=== PATIENT | male | born 1995 | race Caucasian/White ===

== ENCOUNTER 2022-01-20 14:33 | Emergency (ER) | payer MEDICAID, SELFPAY ==
[2022-01-20 15:00] VITALS: BP 134/90; PULSE 83; O2SAT 97
--- NOTE | 2022-01-20 15:18 | ED.OVERDOSE ---
HPI - Overdose General Chief Complaint: ETOH/Substance Use Stated Complaint: OD,NARCAN GIVEN BY BYSTANDER W/GOOD RESULT Time Seen by Provider: 01/20/22 14:49 Source: patient Mode of arrival: EMS Limitations: no limitations History of Present Illness complaint: accidental overdose Onset (ago): minute(s) (just prior to arrival ) Context: Accidental Overdose: wanted to get high Associated symptoms: other (hit head has abrasions to R forehead) Treatments Prior to Arrival: narcan Related Data Allergies Allergy/AdvReac Type Severity Reaction Status Date / Time No Known Allergies Allergy Unverified 12/04/19 17:05 [No Known Allergies*] Review of Systems Review of Systems: Constitutional : No Fever, No Chills, Cardiovascular : No Chest Pain, No SOB Respiratory : No Dyspnea Gastrointestinal : No abdominal pain Musculoskeletal : No Joint Swelling Skin : No rash, positive skin abrasions Neuro : No Weakness, No Numbness Psych : No SI/HI PMFSH Past Medical History Medical History (Updated 01/20/22 @ 15:30 by Guillermina Galindo DO) Polysubstance abuse Social History Social History (Updated 01/20/22 @ 15:29 by Guillermina Galindo DO) Patient Tobacco Use Status: Current everyday Tobacco user Substance Use Type: Heroin and Marijuana Physical Exam Vital Signs: Vital Signs: BMI result Body Mass Index 19.0 Appearance: Alert. Oriented X3. No acute distress. Calm and cooperative Eyes: Pupils equal, round and reactive to light. ENT: Pharynx normal. Gouges on R side of forehead Neck: Normal inspection. Neck supple. CVS: Normal heart rate and rhythm. Pulses normal. Respiratory: No respiratory distress. Breath sounds normal. Abdomen: Soft and non-tender. Skin: Skin warm and dry. Normal skin color. Normal skin turgor. Extremities: No lower extremity edema. No calf ttp Neuro: Oriented X 3. No motor deficit. No sensory deficit. Steady gait, GCS 15 MDM - Overdose MDM Narrative Medical decision making narrative: 26 yo male with OUD here with c/o overdose hit R side of head on forehead. I wanted to get a head CT and observe him but he refuses he is alert and oriented x 3 answering all questions appropriately and he is aware and wants to leave. I handed him a narcan. He is very calm and cooperative. He is aware he could have an ICH but states he is leaving and will come back if necessary. Discharge Plan Discharge Clinical Impression: Accidental heroin overdose, Head injury, Abrasion Patient Disposition: Left Against Medical Advice Instructions: Head Injury (ED), Opioid Use Disorder (ED), Abrasion (ED), Against Medical Advice (ED) Additional Instructions: return to ED for any worsening symptoms or concerns apply bacitracin to your scrapes twice a day monitor for redness, yellow drainage, fevers we asked you to stay in the ER for observation but you refused. we also wanted to get a CT scan of your head but you refused. Please come back at any time
[2022-01-20 15:19] VITALS: BMI 19.0
== END 2022-01-20 15:31 | disposition left against medical advice (07) ==
PROVIDERS: Emergency Provider Emergency Medicine
DX: S00.81XA Abrasion of other part of head, initial encounter (principal); T40.1X1A Poisoning by heroin, accidental (unintentional), initial encounter; W01.0XXA Fall on same level from slipping, tripping and stumbling without subsequent striking against object, initial encounter; Y93.9 Activity, unspecified; Y92.9 Unspecified place or not applicable; Y99.9 Unspecified external cause status
CPT/HCPCS: 99282

== ENCOUNTER 2022-04-03 00:12 | Emergency (ER) | payer MEDICAID, SELFPAY ==
--- NOTE | ~2022-04-03 | XR_ITS ---
EXAMINATION: XR CHEST CLINICAL INFORMATION: Chest pain COMPARISON: 02/07/2019 TECHNIQUE: Frontal view of the chest was obtained. FINDINGS: The lungs are well expanded. There is no focal consolidation, edema, or effusion. No pneumothorax. The cardiomediastinal silhouette is within normal limits. No acute osseous abnormality. XR/XR chest 1V IMPRESSION: Clear lungs.
[2022-04-03 00:23] VITALS: BP 137/87; BP 146/80; PULSE 87; PULSE 95; RESP 16; TEMP 36.6; O2SAT 98; O2SAT 99; BMI 22.3
--- NOTE | 2022-04-03 00:26 | ED_ITS ---
HPI - Chest Pain General Chief Complaint: Chest Pain Stated Complaint: Chest Pain Time Seen by Provider: 04/03/22 00:21 Source: patient Mode of arrival: ambulatory Limitations: no limitations History of Present Illness HPI narrative: Patient comes in the emergency room complaining of chest pain that has been present for approximately an hour. Patient admits using cocaine earlier today. Patient denies URI or UTI symptoms. Related Data Allergies Allergy/AdvReac Type Severity Reaction Status Date / Time No Known Allergies Allergy Unverified 12/04/19 17:05 [No Known Allergies*] Review of Systems Review of Systems: Constitutional : No Weight loss, No Fever, No Chills, No Night Sweats, No Fatigue, No Malaise ENT/Mouth : No Hearing loss, No Ear Pain, No Nasal Congestion, No Sinus Pain, No Hoarseness, No sore throat, No Rhinorrhea, No Swallowing Difficulty Eyes: No Eye Pain, No Swelling, No Redness, No Foreign Body, No Discharge, No Vision Changes Cardiovascular : Biting of sharp Chest Pain, No SOB, No Dyspnea on Exertion, No Orthopnea, No Edema, No Palpitations Respiratory : No Cough, No Sputum, No Wheezing, No Smoke Exposure, No Dyspnea Gastrointestinal : No Nausea, No Vomiting, No Diarrhea, No Constipation, No abdominal Pain, No Hematochezia, No Melena Genitourinary : no irregular bleeding, No Dysuria, No Urinary Frequency, No Hematuria, No Urinary Incontinence, No Urgency, No Flank Pain, No Urinary Flow Changes, No Hesitancy Musculoskeletal : No joint pain, No Myalgias, No Joint Swelling Skin : No Skin Lesions, No rash Neuro : No Weakness, No Numbness, No Paresthesias, No Loss of Consciousness, No Dizziness, No Headache Psych : No Anxiety/Panic, No Depression, No SI/HI/AH/VH, No Social Issues, Heme/Lymph: No Bruising, No Bleeding,No Lymphadenopathy Endocrine : No Polyuria, No Polydipsia, No Temperature Intolerance [facility] Past Medical History Medical History Polysubstance abuse Social History Social History (Updated 01/20/22 @ 15:29 by Guillermina Galindo DO) Alcohol intake: current Patient Tobacco Use Status: Current everyday Tobacco user Smoked in Last 30 Days: Yes Use of substances other than those prescribed or required for medical reasons: Yes Substance Use Type: Crack/Cocaine, Heroin, IV Drugs and Marijuana Substance Use Frequency: Chronic Longstanding Last Used Substance: Hours (ago) Any prior treatment program specific to substance use: No Advance Directives: No Advance Directives Information Provided: No Physical Exam Vital Signs: Vital Signs: Last Vital Signs Temp 97.9 F 04/03/22 00:23 Pulse 104 H 04/03/22 01:15 Resp 17 04/03/22 01:15 BP 143/92 H 04/03/22 01:15 Pulse Ox 92 04/03/22 01:15 O2 Del Method 04/03/22 01:15 BMI result Body Mass Index 22.3 Const: Other: Appearance: Alert. Oriented X3. No acute distress. Eyes: Pupils equal, round and reactive to light. ENT: Pharynx normal. Neck: Normal inspection. Neck supple. No lymph nodes noted. No crepitus CVS: Normal heart rate and rhythm. Pulses normal. Normal S1 and S2 Respiratory: No respiratory distress. Breath sounds normal. No Wheezing. No rales Abdomen: Soft and nontender. No rigidity. No distention. Skin: Skin warm and dry. Normal skin color. Normal skin turgor. Extremities: No lower extremity edema. No Lacerations. No Rash Neuro: Oriented X 3. No motor deficit. No sensory deficit. Moving all extremities. No slurred speech. CN 2 through 12 grossly intact Psych: calm, cooperative, normal affect Course Course Course Narrative: -patient complaining of chest pain, likely secondary to cocaine use. Use cocaine approximately 6-7 hours ago -patient given 1 dose of p.o. aspirin -of patient's labs pending. -EKG my interpretation: Sinus rhythm, heart rate 95, no ST segment depression or elevation, no T-wave inversion, QTC 429 -patient feeling much better, tested positive for COVID-19. Patient states that he has no URI symptoms at all -patient states that he feels very hungry and thirsty, requesting a meal prior to discharge. -patient declined going to a job coach/job developer regarding addiction. Patient states that he will section himself in couple of days Medications Administered Discontinued Medications Generic Name Dose Route Start Last Admin Trade Name Leonel PRN Reason Stop Dose Admin Aspirin 325 mg 04/03/22 00:25 04/03/22 00:43 Aspirin Enteric Coated 325 Mg Tablet.Dr COPPOLA 04/03/22 00:26 325 mg ONCE ONE Administration Medical Decision Making Differential Diagnosis Differential Diagnoses: The differential diagnosis associated with the presentation includes (Coronary vasospasms secondary to cocaine, ACS, cost ochondritis, pneumonia) Lab Data MDM Lab Attestation statement: I reviewed the patient's lab results. 04/03/22 01:07 04/03/22 01:07 Labs: Lab Results 04/03/22 04/03/22 04/03/22 Range/Units 00:50 01:07 01:07 WBC 9.9 (4.8-10.8) X10*3/uL RBC 4.81 (4.60-5.80) X10*6/uL Hgb 13.5 L (14.0-18.0) g/dl Hct 41.5 L (42.0-52.0) % MCV 86.3 (80.0-98.0) fL MCH 28.1 (27.0-33.0) pg MCHC 32.5 (31.0-36.0) g/dl RDW 15.7 (11.0-16.0) % Plt Count 235 (160-400) X10*3/uL MPV 10.4 (9.4-12.4) fL Immature Gran % (Auto) 0.3 (0.0-0.4) % Neut % (Auto) 76.2 H (45-73) % Lymph % (Auto) 18.3 L (20-40) % [place] % (Auto) 4.4 (2-11) % Eos % (Auto) 0.5 (0-4) % Baso % (Auto) 0.3 (0-2) % Lymph # (Auto) 1.8 (1.2-4.9) X10*3/uL [place] # (Auto) 0.4 (0.1-1.2) X10*3/uL Eos # (Auto) 0.1 (0.0-0.4) X10*3/uL Baso # (Auto) 0.0 (0.0-0.2) X10*3/uL Abs Immat Gran (auto) 0.03 (0.00-0.03) X10*3/uL Absolute Neuts (auto) 7.6 (2.0-8.3) x10*3/uL Absolute Nucleated RBC 0.000 (0.0-0.012) X10*3/uL Nucleated RBC % (auto) 0.0 (0.0-0.2) /100WBC PT 12.2 (10.0-13.1) SEC INR 1.1 (0.9-1.1) Sodium (135-145) mmol/L Potassium (3.3-5.1) mmol/L Chloride (96-108) mmol/L Carbon Dioxide (22-29) mmol/L Anion Gap (12-20) BUN (9-16) mg/dL Creatinine (0.5-1.4) mg/dL Estim Creat Clear Calc Estimated GFR Random Glucose (60-115) mg/dL Calcium (8.4-10.2) mg/dL Total Bilirubin (0.0-1.0) mg/dL Direct Bilirubin (0.0-0.5) mg/dL AST (5-37) U/L ALT (0-40) U/L Alkaline Phosphatase (39-117) U/L Troponin I High Sens (<3.5-35.0) ng/L Total Protein (6.5-8.0) g/dL Albumin (3.5-5.0) g/dL COVID-19 ([facility]) Positive A (Negative) COVID-19 Clin Com See Note 04/03/22 04/03/22 Range/Units 01:07 01:07 WBC (4.8-10.8) X10*3/uL RBC (4.60-5.80) X10*6/uL Hgb (14.0-18.0) g/dl Hct (42.0-52.0) % MCV (80.0-98.0) fL MCH (27.0-33.0) pg MCHC (31.0-36.0) g/dl RDW (11.0-16.0) % Plt Count (160-400) X10*3/uL MPV (9.4-12.4) fL Immature Gran % (Auto) (0.0-0.4) % Neut % (Auto) (45-73) % Lymph % (Auto) (20-40) % [place] % (Auto) (2-11) % Eos % (Auto) (0-4) % Baso % (Auto) (0-2) % Lymph # (Auto) (1.2-4.9) X10*3/uL [place] # (Auto) (0.1-1.2) X10*3/uL Eos # (Auto) (0.0-0.4) X10*3/uL Baso # (Auto) (0.0-0.2) X10*3/uL Abs Immat Gran (auto) (0.00-0.03) X10*3/uL Absolute Neuts (auto) (2.0-8.3) x10*3/uL Absolute Nucleated RBC (0.0-0.012) X10*3/uL Nucleated RBC % (auto) (0.0-0.2) /100WBC PT (10.0-13.1) SEC INR (0.9-1.1) Sodium 140 (135-145) mmol/L Potassium 3.7 (3.3-5.1) mmol/L Chloride 104 (96-108) mmol/L Carbon Dioxide 26 (22-29) mmol/L Anion Gap 14 (12-20) BUN 12 (9-16) mg/dL Creatinine 0.80 (0.5-1.4) mg/dL Estim Creat Clear Calc 115.6 Estimated GFR > 60 Random Glucose 79 (60-115) mg/dL Calcium 9.3 (8.4-10.2) mg/dL Total Bilirubin 1.0 (0.0-1.0) mg/dL Direct Bilirubin 0.3 (0.0-0.5) mg/dL AST 42 H (5-37) U/L ALT 44 H (0-40) U/L Alkaline Phosphatase 68 (39-117) U/L Troponin I High Sens < 3.5 (<3.5-35.0) ng/L Total Protein 7.2 (6.5-8.0) g/dL Albumin 4.4 (3.5-5.0) g/dL COVID-19 ([facility]) (Negative) COVID-19 Clin Com Independent Interpretation I performed an independent interpretation of an: Plain X-Ray (X-rays: My interpretation, no acute findings, no consolidation) Radiology Impression Discussion of test interpretation with radiology: I have reviewed the radiologist's reading. Radiologist Impression: FINDINGS: The lungs are well expanded. There is no focal consolidation, edema, or effusion. No pneumothorax. The cardiomediastinal silhouette is within normal limits. No acute osseous abnormality. XR/XR chest 1V IMPRESSION: Clear lungs. Prescription Management I considered prescription management with: Other (Consider prescribing Paxlovid, however, patient has no URI symptoms. Discussed with the patient and he agrees that if need be he can take [id number] medications but he does not think he will needed.) Discharge Plan Discharge Clinical Impression: Atypical chest pain Patient Disposition: Home, Self-Care Instructions: Chest Pain (DC) Additional Instructions: Please follow-up with your primary care physician tomorrow. If you have any worsening or new symptoms, please return to the emergency room or call 911
[2022-04-03] MEDS: Aspirin Enteric Coated 325 MG TABLET.DR PO (00:43)
--- NOTE | 2022-04-03 00:54 | MHC.EDTECH ---
Unable to Obtain Labs 2 attemps made
--- NOTE | 2022-04-03 00:58 | PC.NURSE ---
pt is difficult stick, this RN, Faustino PCT and Anam PCT attempted lab draw. Yoanna DOBSON in room at this time
[2022-04-03 01:15] VITALS: BP 143/92; PULSE 104; RESP 17; O2SAT 92
[2022-04-03 01:15] LABS: MANUAL DIFF FLAG NO
[2022-04-03 01:16] LABS: Basophils Percent Auto 0.3 % (0-2); Eosinophils Absolute Auto 0.1 X10*3/uL (0.0-0.4); Eosinophils Percent Auto 0.5 % (0-4); Hematocrit 41.5 % (42.0-52.0); Hemoglobin 13.5 g/dl (14.0-18.0); Imm Gran Abs Auto 0.03 X10*3/uL (0.00-0.03); Imm Gran Pct Auto 0.3 % (0.0-0.4); Lymphocytes Absolute Auto 1.8 X10*3/uL (1.2-4.9); Lymphocytes Percent Auto 18.3 % (20-40); Mean Corpuscular HGB Conc 32.5 g/dl (31.0-36.0); Mean Corpuscular Hemoglobin 28.1 pg (27.0-33.0); Mean Corpuscular Volume 86.3 fL (80.0-98.0); Mean Platelet Volume 10.4 fL (9.4-12.4); Monocytes Absolute Auto 0.4 X10*3/uL (0.1-1.2); Monocytes Percent Auto 4.4 % (2-11); Neutrophils Absolute Auto 7.6 x10*3/uL (2.0-8.3); Neutrophils Percent Auto 76.2 % (45-73); Platelet Count 235 X10*3/uL (160-400); Red Blood Count 4.81 X10*6/uL (4.60-5.80); Red Cell Distribution Width 15.7 % (11.0-16.0); White Blood Count 9.9 X10*3/uL (4.8-10.8)
[2022-04-03 01:21] LABS: COVID-19 Test Positive (Negative); IDNOW Serial# BCCEAD1C
[2022-04-03 01:26] LABS: INTERNATIONAL NORM RATIO 1.1 (0.9-1.1); Prothrombin Time 12.2 SEC (10.0-13.1)
[2022-04-03 01:35] LABS: Alanine Aminotransferase 44 U/L (0-40); Albumin Level 4.4 g/dL (3.5-5.0); Alkaline Phosphatase 68 U/L (39-117); Anion Gap 14 (12-20); Aspartate Amino Transferase 42 U/L (5-37); Bilirubin Direct 0.3 mg/dL (0.0-0.5); Blood Urea Nitrogen 12 mg/dL (9-16); Calcium 9.3 mg/dL (8.4-10.2); Carbon Dioxide 26 mmol/L (22-29); Chloride 104 mmol/L (96-108); Creatinine Clr Calc Pharmacy 115.6; Estimated Glomerular Filt Rate > 60; Glucose Random 79 mg/dL (60-115); Potassium 3.7 mmol/L (3.3-5.1); Sodium 140 mmol/L (135-145); Total Protein 7.2 g/dL (6.5-8.0)
[2022-04-03 01:44] LABS: Troponin-I High Sensitivity < 3.5 ng/L (<3.5-35.0)
--- NOTE | 2022-04-03 08:17 | ECG_ITS ---
Test Reason : CHEST PAIN Blood Pressure : / mmHG Vent. Rate : 095 BPM Atrial Rate : 095 BPM P-R Int : 124 ms QRS Dur : 088 ms QT Int : 342 ms P-R-T Axes : 074 067 043 degrees QTc Int : 429 ms Normal sinus rhythm Normal ECG When compared with ECG of 07-FEB-2019 18:12, No significant change was found Referred By: Cyndi Vaz Electronically Signed By:RADHA JUÁREZ MD
== END 2022-04-03 02:05 | disposition home or self-care (01) ==
PROVIDERS: Emergency Provider Emergency Medicine
DX: U07.1 COVID-19 (principal); R07.89 Other chest pain; F19.10 Other psychoactive substance abuse, uncomplicated; F17.200 Nicotine dependence, unspecified, uncomplicated
CPT/HCPCS: 71045; 80048; 80076; 84484; 85025; 85610; 87635; 93005; 99283

== ENCOUNTER 2022-04-03 22:31 | Emergency (ER) | payer MEDICAID, SELFPAY ==
[2022-04-03 22:49] VITALS: BP 145/85; PULSE 105; PULSE 90; RESP 16; O2SAT 98; BMI 22.3
--- NOTE | 2022-04-03 23:00 | ED.OVERDOSE ---
HPI - Overdose General Chief Complaint: Overdose Stated Complaint: OD Time Seen by Provider: 04/03/22 22:53 Source: patient and EMS Mode of arrival: EMS Limitations: no limitations History of Present Illness HPI Narrative: Patient comes to the emergency room via ambulance. Patient was found unresponsive, given Narcan 8 mg intranasal and patient will go. Patient states that he recently got out of present, used heroin and he accidentally overdose. Patient states he is not suicidal homicidal. Patient has no other complaints Related Data Allergies Allergy/AdvReac Type Severity Reaction Status Date / Time No Known Allergies Allergy Unverified 12/04/19 17:05 [No Known Allergies*] Review of Systems Review of Systems: Constitutional : No Weight loss, No Fever, No Chills, No Night Sweats, No Fatigue, No Malaise ENT/Mouth : No Hearing loss, No Ear Pain, No Nasal Congestion, No Sinus Pain, No Hoarseness, No sore throat, No Rhinorrhea, No Swallowing Difficulty Eyes: No Eye Pain, No Swelling, No Redness, No Foreign Body, No Discharge, No Vision Changes Cardiovascular : No Chest Pain, No SOB, No Dyspnea on Exertion, No Orthopnea, No Edema, No Palpitations Respiratory : No Cough, No Sputum, No Wheezing, No Smoke Exposure, No Dyspnea Gastrointestinal : No Nausea, No Vomiting, No Diarrhea, No Constipation, No abdominal Pain, No Hematochezia, No Melena Genitourinary : no irregular bleeding, No Dysuria, No Urinary Frequency, No Hematuria, No Urinary Incontinence, No Urgency, No Flank Pain, No Urinary Flow Changes, No Hesitancy Musculoskeletal : No joint pain, No Myalgias, No Joint Swelling Skin : No Skin Lesions, No rash Neuro : No Weakness, No Numbness, No Paresthesias, No Loss of Consciousness, No Dizziness, No Headache Psych : No Anxiety/Panic, No Depression, No SI/HI/AH/VH, No Social Issues, Heme/Lymph: No Bruising, No Bleeding,No Lymphadenopathy Endocrine : No Polyuria, No Polydipsia, No Temperature Intolerance PMF Past Medical History Medical History Polysubstance abuse Social History Social History (Updated 01/20/22 @ 15:29 by Guillermina Galindo DO) Alcohol intake: current Patient Tobacco Use Status: Current everyday Tobacco user Substance Use Type: Crack/Cocaine, Heroin, IV Drugs and Marijuana Advance Directives: No Physical Exam Vital Signs: Vital Signs: Last Vital Signs Temp 98.4 F 04/03/22 23:55 Pulse 92 04/03/22 23:55 Resp 14 04/03/22 23:55 BP 122/81 04/03/22 23:55 Pulse Ox 98 04/03/22 23:55 O2 Del Method 04/03/22 23:55 BMI result Body Mass Index 22.3 Const: Other: Appearance: Alert. Oriented X3. No acute distress. Eyes: Pupils equal, round and reactive to light. ENT: Pharynx normal. Neck: Normal inspection. Neck supple. No lymph nodes noted. No crepitus CVS: Normal heart rate and rhythm. Pulses normal. Normal S1 and S2 Respiratory: No respiratory distress. Breath sounds normal. No Wheezing. No rales Abdomen: Soft and nontender. No rigidity. No distention. Skin: Skin warm and dry. Normal skin color. Normal skin turgor. Extremities: No lower extremity edema. No Lacerations. No Rash Neuro: Oriented X 3. No motor deficit. No sensory deficit. Moving all extremities. No slurred speech. CN 2 through 12 grossly intact Psych: calm, cooperative, normal affect Course Course Course Narrative: -accidental overdose -awake, alert and oriented x4, normal respiratory rate and oxygen saturation -patient declined care team/sude eval -patient on observation, in couple of hours patient may be discharged. -patient will be discharged with home Narcan Medical Decision Making Differential Diagnosis Differential Diagnoses: The differential diagnosis associated with the presentation includes (Accidental overdose) Discharge Plan Discharge Clinical Impression: Drug overdose Patient Disposition: Home, Self-Care Instructions: Adult Overdose (ED) Additional Instructions: Please follow-up with your primary care physician tomorrow. If you have any worsening or new symptoms, please return to the emergency room or call 911
--- NOTE | 2022-04-03 23:12 | PC.NURSE ---
patient brought into bed 1 because he states he is covid positive. pt changed over by PCT and security, belongings secured. no apparent distress, respirations even and unlabored. will continue to monitor
[2022-04-03 23:55] VITALS: BP 122/81; PULSE 92; RESP 14; TEMP 36.9; O2SAT 98
== END 2022-04-04 01:44 | disposition home or self-care (01) ==
PROVIDERS: Emergency Provider Emergency Medicine
DX: R40.4 Transient alteration of awareness (principal); T40.1X1A Poisoning by heroin, accidental (unintentional), initial encounter; Y92.9 Unspecified place or not applicable
CPT/HCPCS: 99283

== ENCOUNTER 2022-04-08 18:28 | Emergency (ER) | payer MEDICAID, SELFPAY ==
[2022-04-08 18:36] VITALS: BP 102/50; BP 141/98; PULSE 88; PULSE 92; RESP 18; TEMP 37.1; O2SAT 100; O2SAT 95; BMI 22.3
--- NOTE | 2022-04-08 18:45 | ED.OVERDOSE ---
HPI - Overdose General Chief Complaint: Overdose Stated Complaint: OVERDOSE Time Seen by Provider: 04/08/22 18:44 Source: patient Mode of arrival: EMS Limitations: no limitations History of Present Illness HPI Narrative: Patient history of opiate abuse used to be on Suboxone not using it but using heroin last time was a month ago today he said he use half bag of heroin IV was found obtunded 8 mg of Narcan given by a bystander when EMS reached patient was awake alert patient was COVID positive on 04/03 feeling better at this time Related Data Allergies Allergy/AdvReac Type Severity Reaction Status Date / Time No Known Allergies Allergy Unverified 12/04/19 17:05 [No Known Allergies*] Review of Systems Review of Systems: Yes all other systems are reviewed and are negative PMFSH Past Medical History Medical History Polysubstance abuse Social History Social History Alcohol intake: current Patient Tobacco Use Status: Current everyday Tobacco user Smoked in Last 30 Days: Yes Use of substances other than those prescribed or required for medical reasons: Yes Substance Use Type: Opiates Advance Directives: No Advance Directives Information Provided: No Physical Exam Vital Signs: Vital Signs: Last Vital Signs Temp 98.8 F 04/08/22 18:36 Pulse 88 04/08/22 20:14 Resp 12 04/08/22 20:14 BP 116/64 04/08/22 20:14 Pulse Ox 97 04/08/22 20:14 O2 Del Method 04/08/22 20:14 BMI result Body Mass Index 22.3 Appearance: Alert. Oriented X3. No acute distress. Eyes: PERRLA, No Nystagmus ENT: Pharynx normal. Oral Mucosa moist Neck: Normal inspection. Neck supple. CVS: Normal heart rate and rhythm. Pulses normal. Respiratory: No respiratory distress. Equal air entry bilateral, no wheezing/rales/rhonchi Abdomen: Soft and nontender. Bowel sounds are present, no mass palpable, no CVA tenderness Skin: Skin warm and dry. Normal skin color. Normal skin turgor. Extremities: No lower extremity edema. No calf tenderness IVDA track skelton Neuro: Oriented X 3. No motor deficit. No sensory deficit.No cerebellar signs , cranial nerves II-XII intact Medical Decision Making Medical Decision Making MDM Narrative: Patient alert and awake ambulatory and steady gait saturating 100% room air discharge patient home Discharge Plan Discharge Clinical Impression: Accidental opiate poisoning Patient Disposition: Home, Self-Care Instructions: Opioid Use Disorder (ED) Additional Instructions: Stop using opiates and follow detox Interventions: [place]-Suicide Risk Severity Scale Last Done: 04/08/22 18:42
--- NOTE | 2022-04-08 19:39 | MHC.RECOVSUP ---
? Reason for consult:Recovery Consult o Current location:[facility]? o Identified substance use concern:Heroine ? - Overdose o Referral to [facility] o Follow up tomorrow ? ? Additional information:?Checked in with patient, he was resting at this time. I will let the team know to follow up in the morning if patient is still here. Possible [facility] referral.
[2022-04-08 20:14] VITALS: BP 116/64; PULSE 88; RESP 12; O2SAT 97
--- NOTE | 2022-04-08 20:15 | PC.NURSE ---
Assumed care for pt. Pt sleeping at the bedside in no apparent distress. Breaths are even and unlabored with equal chest rises. NSR on monitor with HR 88. Will continue to monitor.
[2022-04-08] MEDS: Naloxone HCl Nasal TAKE HOME 4 MG SPRAY NOSTRILALT (21:18)
--- NOTE | 2022-04-08 21:23 | PC.NURSE ---
Narcan provided to pt to take home. Discharge instructions reviewed with pt. Pt verbalizes understanding. Req food and liquids.
== END 2022-04-08 21:24 | disposition home or self-care (01) ==
PROVIDERS: Emergency Provider Internal Medicine
DX: R40.20 Unspecified coma (principal); T40.1X1A Poisoning by heroin, accidental (unintentional), initial encounter; F19.10 Other psychoactive substance abuse, uncomplicated; Y92.9 Unspecified place or not applicable; F17.200 Nicotine dependence, unspecified, uncomplicated
CPT/HCPCS: 99283; 99285

== ENCOUNTER 2022-05-26 04:40 | Emergency (ER) | payer MEDICAID, SELFPAY ==
[2022-05-26 05:00] VITALS: BP 132/94; BP 151/101; PULSE 105; PULSE 99; RESP 18; TEMP 36.9; O2SAT 100; O2SAT 99; BMI 15.7
--- NOTE | 2022-05-26 05:25 | ED_ITS ---
HPI - Overdose General Chief Complaint: Overdose Stated Complaint: OD Time Seen by Provider: 05/26/22 05:24 Source: patient and EMS Mode of arrival: EMS Limitations: other History of Present Illness HPI Narrative: Patient comes to the emergency room via EMS. Patient was found behind an apartment complex curled up in position and unresponsive. Bystanders gave the patient 60 mg of intranasal Narcan. Police department arrived, patient was reawakened vomiting. Patient states that he accidentally overdose with heroin. Patient denies suicidal or homicidal ideation Related Data Allergies Allergy/AdvReac Type Severity Reaction Status Date / Time No Known Allergies Allergy Unverified 12/04/19 17:05 [No Known Allergies*] Review of Systems Review of Systems: Constitutional : No Weight loss, No Fever, No Chills, No Night Sweats, No Fatigue, No Malaise ENT/Mouth : No Hearing loss, No Ear Pain, No Nasal Congestion, No Sinus Pain, No Hoarseness, No sore throat, No Rhinorrhea, No Swallowing Difficulty Eyes: No Eye Pain, No Swelling, No Redness, No Foreign Body, No Discharge, No Vision Changes Cardiovascular : No Chest Pain, No SOB, No Dyspnea on Exertion, No Orthopnea, No Edema, No Palpitations Respiratory : No Cough, No Sputum, No Wheezing, No Smoke Exposure, No Dyspnea Gastrointestinal : Complaining of nausea and vomiting, No Diarrhea, No Constipation, No abdominal Pain, No Hematochezia, No Melena Genitourinary : no irregular bleeding, No Dysuria, No Urinary Frequency, No Hematuria, No Urinary Incontinence, No Urgency, No Flank Pain, No Urinary Flow Changes, No Hesitancy Musculoskeletal : No joint pain, No Myalgias, No Joint Swelling Skin : No Skin Lesions, No rash Neuro : No Weakness, No Numbness, No Paresthesias, No Loss of Consciousness, No Dizziness, No Headache Psych : No Anxiety/Panic, No Depression, No SI/HI/AH/VH, No Social Issues, Heme/Lymph: No Bruising, No Bleeding,No Lymphadenopathy Endocrine : No Polyuria, No Polydipsia, No Temperature Intolerance [facility] Past Medical History Medical History Polysubstance abuse Social History Social History Alcohol intake: current Patient Tobacco Use Status: Current everyday Tobacco user Substance Use Type: Opiates Physical Exam Vital Signs: Vital Signs: Last Vital Signs Temp 98.4 F 05/26/22 05:00 Pulse 99 05/26/22 05:00 Resp 18 05/26/22 05:00 BP 132/94 H 05/26/22 05:00 Pulse Ox 99 05/26/22 05:00 O2 Del Method 05/26/22 05:00 BMI result Body Mass Index 15.7 Const: Other: Appearance: Alert. Oriented X3. Actively vomiting Eyes: Pupils equal, round and reactive to light. ENT: Pharynx normal. Neck: Normal inspection. Neck supple. No lymph nodes noted. No crepitus CVS: Normal heart rate and rhythm. Pulses normal. Normal S1 and S2 Respiratory: No respiratory distress. Breath sounds normal. No Wheezing. No rales Abdomen: Soft and nontender. No rigidity. No distention. Skin: Skin warm and dry. Normal skin color. Normal skin turgor. Extremities: No lower extremity edema. No Lacerations. No Rash Neuro: Oriented X 3. No motor deficit. No sensory deficit. Moving all extremities. No slurred speech. CN 2 through 12 grossly intact Psych: calm, cooperative Course Course Course Narrative: -patient actively vomiting, awake, alert and oriented x3,, cooperative -patient's oxygen saturation 100% on room air -metabolized to freedom -care/sude consult pending -patient will be provided with home Narcan Discharge Plan Discharge Clinical Impression: Drug overdose Patient Disposition: Still a Patient
[2022-05-26] MEDS: Naloxone HCl Nasal TAKE HOME 4 MG SPRAY NOSTRILALT (06:29)
--- NOTE | 2022-05-26 06:29 | PC.NURSE ---
Pt given med. Med left at bed side to take home.
--- NOTE | 2022-05-26 07:08 | PC.NURSE ---
Resumed care of this patient from Frandy CARBAJAL, Patient resting comfortably in bed at this time, safety measures in place.
[2022-05-26 07:27] VITALS: BP 110/72; PULSE 94; RESP 16; O2SAT 96
--- NOTE | 2022-05-26 09:17 | HO.SUDE ---
Met with pt in ED11 to discuss substance use. Pt laying in bed, asleep, wakes to voice. Pt reports using varying amounts of heroin, between 5-20 bags daily, IV. Pt also reports cocaine use, IV and INH, unknown amount. Pt has recently been in prison, reports release a couple months ago. Had been in x 1 year and was on Suboxone. Pt reports after release he had a recurrence and did not continue outpatient tx. Per [facility], pt had one script filled in Nov 2021 for a 10 day supply. Pt reports 2-3 ATS admissions. Reports a total of 20 overdoses. Pt reports this overdose probably occurred due to using from a different supplier. Pt is interested in ATS. Kateryna kuhn, RN aware.
[2022-05-26 09:23] VITALS: BP 99/57; PULSE 85; RESP 18; O2SAT 96
[2022-05-26 10:01] VITALS: BP 111/71
--- NOTE | 2022-05-26 11:07 | MHC.RECOVRN ---
Pt accepted to [facility]. Will be transported via [place]. RN aware.
== END 2022-05-26 11:48 | disposition other institution (70) ==
PROVIDERS: Emergency Provider Emergency Medicine
DX: T40.1X1A Poisoning by heroin, accidental (unintentional), initial encounter (principal); Y92.89 Other specified places as the place of occurrence of the external cause
CPT/HCPCS: 99284; 99285

== ENCOUNTER 2023-05-26 07:56 | Emergency (ER) | payer SELFPAY ==
--- NOTE | 2023-05-26 08:09 | MHC.EDTECH ---
2 BAGS OF BELONGINGS TO DECON, 1 KNIFE TO SECURITY PER SECURITY OFFICERS DENNIS AND @ THIS TIME
[2023-05-26 08:10] VITALS: BP 138/100; BP 162/95; PULSE 86; PULSE 91; RESP 15; TEMP 36.7; O2SAT 97; O2SAT 99; BMI 25.3
--- NOTE | 2023-05-26 08:11 | ED_ITS ---
HPI - Overdose General Chief Complaint: Overdose Stated Complaint: HEROIN OD,BYSTANDER NARCAN GIVEN W/GOOD RESULT Time Seen by Provider: 05/26/23 08:07 Source: patient and EMS Mode of arrival: EMS Limitations: no limitations History of Present Illness HPI Narrative: Patient is a 27-year-old male who presents emergency department via EMS for evaluation after an unintentional overdose. Patient was found in a [facility] bathroom, bystanders administered 8 mg of intranasal Narcan. He admits to using half a bag of heroin. He states that he has not used in a while, believes this is likely why this amount resulted in his overdose. He is adamant that this was not intentional. He does admit to drinking alcohol last night. When asked he declines any interest in detox, or SUDE evaluation. He has no physical c omplaints. He denies any SI/HI. Related Data Allergies Allergy/AdvReac Type Severity Reaction Status Date / Time No Known Allergies Allergy Verified 05/26/23 08:24 [No Known Allergies*] Review of Systems Review of Systems: Yes all other systems are reviewed and are negative [facility] Past Medical History Attestation statement: The following information was validated with the patient. Source: old records reviewed Medical History Polysubstance abuse Social History Social History Alcohol intake: current Patient Tobacco Use Status: Current everyday Tobacco user Substance Use Type: Crack/Cocaine, Heroin, IV Drugs, Marijuana and Opiates Advance Directives: No Physical Exam Vital Signs: Vital Signs: Last Vital Signs Temp 98.0 F 05/26/23 08:10 Pulse 91 05/26/23 08:10 Resp 15 05/26/23 08:10 BP 138/100 H 05/26/23 08:10 Pulse Ox 99 05/26/23 08:10 O2 Del Method Room Air 05/26/23 08:10 BMI result Body Mass Index 25.3 Appearance: Alert.?Oriented to person, place and time. No acute distress.?Normal affect. Eyes: Pupils equal, round and reactive to light.? ENT: Pharynx normal.?? Neck: Normal inspection.? Neck supple.?? CVS: Heart sounds normal. Normal heart rate and rhythm.? Pulses normal.?? Respiratory: No respiratory distress.? Lung sounds clear to auscultation bilaterally?? Abdomen: Soft and non-tender. Normoactive bowel sounds. Skin: Skin warm and dry.? Normal skin color.? Extremities: No lower extremity edema.? Neuro: Moves all extremities spontaneously. Sensation intact bilaterally. CN II- XII intact. No focal neuro deficits. Ambulates with normal steady gait. Course Reevaluation(s) Reevaluation #1: He was monitored in the emergency department for the past 3 hours. Remains alert and oriented. No respiratory distress. Continues to decline interest in detox or SUDE evaluation. Stable for discharge. Provided with take-home Narcan kit and instructed on usage Time: 10:50 Medical Decision Making Medical Decision Making MDM Narrative: Patient is a 27-year-old male with past medical history of substance use disorder who presents emergency department via EMS for evaluation after an unintentional overdose as per HPI. At the time my examination he appears overall well, he is speaking clear full sentences, no respiratory distress. He is requesting something to eat, and this request was met. He was offered a SUDE evaluation and he declines. He declines any interest in detox. 8 mg of intranasal Narcan was administered prior to arrival, therefore will remain in the emergency department under physician observation to ensure no relapse of overdose state. He will be discharged home with take-home Narcan kit. Differential Diagnosis Differential Diagnoses: The differential diagnosis associated with the presentation includes (Substance use disorder, intentional overdose, unintentional overdose) Admission/Observation Consideration of admission/observation: Escalation of care including admission/observation considered (See narrative above) Independent Historian Clinical information obtained from an independent historian. History obtained from or confirmed by: EMS Social Determinants Patient?s care significantly limited by Social Determinants of Health including: Other Social Determinant of Health (Substance use disorder) Discharge Plan Discharge Clinical Impression: Opiate overdose Qualifiers: Encounter type: initial encounter Injury intent: accidental or unintentional Qualified Code(s): T40.601A - Poisoning by unspecified narcotics, accidental (unintentional), initial encounter Patient Disposition: Home, Self-Care Instructions: Naloxone (Into the nose), Opioid Safety (ED), Opioid Use Disorder (ED) Referrals: Physician,None [Primary Care Provider] -
--- NOTE | 2023-05-26 11:26 | PC.NURSE ---
pt a+o x3, vss, he denies pain. 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 Pt cleared for discharge, discharge instructions reviewed with pt. No complaints on discharge.
--- NOTE | 2023-05-26 11:36 | MHC.RECOVRN ---
ACS unable to complete SUDE, as per MD note, pt declined.
== END 2023-05-26 11:22 | disposition home or self-care (01) ==
PROVIDERS: Emergency Provider Student in an Organized Health Care Education/Training Program
DX: T40.601A Poisoning by unspecified narcotics, accidental (unintentional), initial encounter (principal); Y92.9 Unspecified place or not applicable
CPT/HCPCS: 99283; 99285

== ENCOUNTER 2023-06-07 00:48 | Emergency (ER) | payer OTHER, SELFPAY ==
--- NOTE | 2023-06-07 | ECG_ITS ---
Test Reason : OVERDOSE Blood Pressure : / mmHG Vent. Rate : 098 BPM Atrial Rate : 098 BPM P-R Int : 128 ms QRS Dur : 090 ms QT Int : 338 ms P-R-T Axes : 073 070 047 degrees QTc Int : 431 ms Normal sinus rhythm Normal ECG When compared with ECG of 03-APR-2022 00:16, No significant change was found Referred By: Generic ED Physician Electronically Signed By:SHANTA OWENS
[2023-06-07 00:56] VITALS: BP 140/90; PULSE 115; O2SAT 100; BMI 26.6
[2023-06-07 01:05] VITALS: BP 125/91; PULSE 119; RESP 18; TEMP 36.7; O2SAT 98
--- NOTE | 2023-06-07 01:18 | ED.OVERDOSE ---
HPI - Overdose General Chief Complaint: Overdose Stated Complaint: OVERDOSE Time Seen by Provider: 06/07/23 01:12 History of Present Illness HPI Narrative: Patient is a 27-year-old male with a history of polysubstance abuse. Elected to inject himself with a bag of heroin at approximately midnight. Was found to be unresponsive. Nasal Narcan was given. Patient was then sent to the emergency department for further evaluation. Patient claims that he did it for recreational reasons. In addition patient also want to hurt himself. He does want to go to detox at this time. He has no fever no chills. He is hungry. Related Data Allergies Allergy/AdvReac Type Severity Reaction Status Date / Time No Known Allergies Allergy Verified 05/26/23 08:24 [No Known Allergies*] Review of Systems Review of Systems: Positive heroin use Yes all other systems are reviewed and are negative [facility] Past Medical History Attestation statement: The following information was validated with the patient. Medical History Polysubstance abuse Social History Social History Alcohol intake: current Alcohol intake frequency: does not drink Patient Tobacco Use Status: Current everyday Tobacco user Smoked in Last 30 Days: Yes Use of substances other than those prescribed or required for medical reasons: Yes Substance Use Type: Heroin Physical Exam Vital Signs: Vital Signs: Last Vital Signs Temp 98.0 F 06/07/23 01:05 Pulse 119 H 06/07/23 01:05 Resp 18 06/07/23 01:05 BP 125/91 H 06/07/23 01:05 Pulse Ox 98 06/07/23 01:05 O2 Del Method Room Air 06/07/23 01:05 BMI result Body Mass Index 26.6 Appearance: Alert. Oriented X3. No acute distress. Eyes: Pupils equal, round and reactive to light. ENT: Pharynx normal. Neck: Normal inspection. Neck supple. No lymph nodes noted. No crepitus CVS: Normal heart rate and rhythm. Pulses normal. Normal S1 and S2 Respiratory: No respiratory distress. Breath sounds normal. No Wheezing. No rales Abdomen: Soft and nontender. No rigidity. No distention. good BS x4 Skin: Skin warm and dry. Multiple track skelton noted. Normal skin color. Normal skin turgor. Extremities: No lower extremity edema. Neurovascular intact to all extremities. No Lacerations. No Rash Neuro: Oriented X 3. No motor deficit. No sensory deficit. Moving all extermities. No slurred speech. Grossly cranial nerves intact Medications Administered Generic Name Dose Route Start Last Admin Trade Name Freq PRN Reason Stop Dose Admin Sodium Chloride 1,000 mls @ 999 mls/hr 06/07/23 01:30 06/07/23 02:05 Ns IV 06/07/23 02:30 Not Given .Q1H1M [facility] Medical Decision Making Medical Decision Making [facility] Narrative: Slightly tachycardic at 120. Patient was given Narcan earlier. Will monitor for 2 hours. Will have patient get evaluated by crisis is he wants detox and is potentially suicidal. Currently in stable condition. Patient monitored in the emergency department. Given food. Heart rate is down to 105. No distress. Still claims that he has suicidal ideation by using heroin. Will have patient get evaluated by the care team. Currently in stable condition. Differential Diagnosis Differential Diagnoses: The differential diagnosis associated with the presentation includes Narcotic overdose, suicidal ideation Admission/Observation Consideration of admission/observation: Escalation of care including admission/observation considered Consult Healthcare Provider Management of the patient was discussed with: Seafood Process Worker (Care team) Lab Data [facility] Lab Attestation statement: I reviewed the patient's lab results. 06/07/23 01:43 06/07/23 01:43 Labs: Lab Results 06/07/23 Range/Units 01:43 WBC 7.2 (4.8-10.8) X10*3/uL RBC 4.74 (4.60-5.80) X10*6/uL Hgb 13.5 L (14.0-18.0) g/dl Hct 40.5 L (42.0-52.0) % MCV 85.4 (80.0-98.0) fL MCH 28.5 (27.0-33.0) pg MCHC 33.3 (31.0-36.0) g/dl RDW 14.2 (11.0-16.0) % Plt Count 293 (160-400) X10*3/uL MPV 10.4 (9.4-12.4) fL Immature Gran % (Auto) 0.1 (0.0-0.4) % Neut % (Auto) 45.7 (45-73) % Lymph % (Auto) 39.4 (20-40) % [place] % (Auto) 13.7 H (2-11) % Eos % (Auto) 0.7 (0-4) % Baso % (Auto) 0.4 (0-2) % Lymph # (Auto) 2.8 (1.2-4.9) X10*3/uL [place] # (Auto) 1.0 (0.1-1.2) X10*3/uL Eos # (Auto) 0.1 (0.0-0.4) X10*3/uL Baso # (Auto) 0.0 (0.0-0.2) X10*3/uL Abs Immat Gran (auto) 0.01 (0.00-0.03) X10*3/uL Absolute Neuts (auto) 3.3 (2.0-8.3) x10*3/uL Absolute Nucleated RBC 0.000 (0.0-0.012) X10*3/uL Nucleated RBC % (auto) 0.0 (0.0-0.2) /100WBC Sodium 144 (135-145) mmol/L Potassium 3.5 (3.3-5.1) mmol/L Chloride 105 (96-108) mmol/L Carbon Dioxide 28 (22-29) mmol/L Anion Gap 15 (12-20) BUN 10 (9-16) mg/dL Creatinine 0.71 (0.5-1.4) mg/dL Estim Creat Clear Calc 139.7 Estimated GFR > 60 Random Glucose 106 (60-115) mg/dL Calcium 9.1 (8.4-10.2) mg/dL Total Bilirubin 0.3 (0.0-1.0) mg/dL AST 31 (5-37) U/L ALT 34 (0-40) U/L Alkaline Phosphatase 62 (39-117) U/L Total Protein 7.0 (6.5-8.0) g/dL Albumin 4.0 (3.5-5.0) g/dL Ethyl Alcohol < 10 mg/dL Independent Historian Clinical information obtained from an independent historian. History obtained from or confirmed by: EMS Social Determinants Patient?s care significantly limited by Social Determinants of Health including: Alcoholism and drug addiction in family, Problems related to primary support group, Unemployment and Other Social Determinant of Health Discharge Plan Discharge Clinical Impression: Drug overdose, Depression Patient Disposition: Still a Patient
[2023-06-07 01:47] LABS: MANUAL DIFF FLAG NO
[2023-06-07 01:48] LABS: Basophils Percent Auto 0.4 % (0-2); Eosinophils Absolute Auto 0.1 X10*3/uL (0.0-0.4); Eosinophils Percent Auto 0.7 % (0-4); Hematocrit 40.5 % (42.0-52.0); Hemoglobin 13.5 g/dl (14.0-18.0); Imm Gran Abs Auto 0.01 X10*3/uL (0.00-0.03); Imm Gran Pct Auto 0.1 % (0.0-0.4); Lymphocytes Absolute Auto 2.8 X10*3/uL (1.2-4.9); Lymphocytes Percent Auto 39.4 % (20-40); Mean Corpuscular HGB Conc 33.3 g/dl (31.0-36.0); Mean Corpuscular Hemoglobin 28.5 pg (27.0-33.0); Mean Corpuscular Volume 85.4 fL (80.0-98.0); Mean Platelet Volume 10.4 fL (9.4-12.4); Monocytes Percent Auto 13.7 % (2-11); Neutrophils Absolute Auto 3.3 x10*3/uL (2.0-8.3); Neutrophils Percent Auto 45.7 % (45-73); Platelet Count 293 X10*3/uL (160-400); Red Blood Count 4.74 X10*6/uL (4.60-5.80); Red Cell Distribution Width 14.2 % (11.0-16.0); White Blood Count 7.2 X10*3/uL (4.8-10.8)
[2023-06-07 02:04] LABS: Alanine Aminotransferase 34 U/L (0-40); Alkaline Phosphatase 62 U/L (39-117); Anion Gap 15 (12-20); Aspartate Amino Transferase 31 U/L (5-37); Bilirubin Total 0.3 mg/dL (0.0-1.0); Blood Urea Nitrogen 10 mg/dL (9-16); Calcium 9.1 mg/dL (8.4-10.2); Carbon Dioxide 28 mmol/L (22-29); Chloride 105 mmol/L (96-108); Creatinine Clr Calc Pharmacy 139.7; Estimated Glomerular Filt Rate > 60; Ethanol < 10 mg/dL; Glucose Random 106 mg/dL (60-115); Potassium 3.5 mmol/L (3.3-5.1); Sodium 144 mmol/L (135-145)
--- NOTE | 2023-06-07 02:05 | PC.NURSE ---
pt now reporting si. charge entry aware of need for 1:1 sitter. pt denies plan at this time. previously changed over by security on arrival belongings in . pt has necklace on that pertains to buddhist; charge entry aware ok with keeping it on.
--- NOTE | 2023-06-07 02:28 | PC.NURSE ---
pt medically cleared by Dr. Lopez/ report given to pod RN Jahaira. pt escorted by security.
[2023-06-07 02:50] LABS: Appearance Urine Clear; Color Urine Dark Yellow; Glucose Urine UA Negative (Negative); Leukocyte Esterase Urine Negative (Negative); Nitrite Urine Negative (Negative); Specific Gravity - Urine 1.025 (1.005-1.025); Urine Blood Negative (Negative); Urine Ketones Trace mg/dL (Negative); Urine Protein Trace mg/dL (Neg-Trace)
[2023-06-07 02:52] LABS: Bacteria Urine None Seen (None Seen); Hyaline Casts Urine 0-2 /LPF (0-2); RBC Urine 0-2 /HPF (0-2); Squamous Epithelial Cell Urine 0-2 /HPF (0-2); WBC Urine 0-5 /HPF (0-5)
[2023-06-07 02:56] LABS: Amphetamine Screen Urine Not Detected (Not Detect); Barbiturates, Urine Not Detected (Not Detect); Benzodiazepines Screen Urine Not Detected (Not Detect); Cannabinoid Screen Urine POSITIVE (Not Detect); Cocaine Screen Urine POSITIVE (Not Detect); Fentanyl, urine POSITIVE (Not Detect); Opiate Screen Urine Not Detected (Not Detect); Phencyclidine Screen Urine Not Detected (Not Detect)
[2023-06-07 03:07] LABS: COVID-19 Test Negative (Negative); IDNOW Serial# 6674DD1D
--- NOTE | 2023-06-07 03:18 | MHC.CARE ---
CARE Team attempted to meet with the pt @ 03:15 when he became medically cleared. Pt stated that due to his accidental OD he was to tired to speak to t/w. Pt is requesting a couple hours of sleep before he has to talk to anyone. Pt is requesting something for his cough. T/W alerted the RN.
[2023-06-07] MEDS: Throat Lozenge, Medicated LOZENGE 1 LOZENGE MUCOUS MEM (04:08)
[2023-06-07 08:17] VITALS: BP 127/83; PULSE 93; RESP 16; TEMP 36.8; O2SAT 100
--- NOTE | 2023-06-07 11:00 | MHC.RECOVRN ---
Pts referral sent to [facility]. Awaiting review.
--- NOTE | 2023-06-07 11:03 | HO.SUDE ---
Please see CARE Team assessment by Anika Drake.
--- NOTE | 2023-06-07 11:23 | PC.NURSE ---
continues to rest quietly in room with even and unlabored, no obvious signs/symptoms of distress noted. met by care team this morning who recommend recovery team at this time
--- NOTE | 2023-06-07 12:42 | MHC.RECOVRN ---
Pt accepted to [facility] pending phone screen.
[2023-06-07] MEDS: Naloxone HCl Nasal TAKE HOME 4 MG SPRAY 8 MG NOSTRILALT (14:39)
[2023-06-07 14:47] VITALS: BP 132/72; PULSE 73; RESP 16; TEMP 36.5; O2SAT 97
== END 2023-06-07 14:48 | disposition home or self-care (01) ==
PROVIDERS: Emergency Provider Emergency Medicine Emergency Medical Services
DX: T40.1X1A Poisoning by heroin, accidental (unintentional), initial encounter (principal); Y92.9 Unspecified place or not applicable; F33.1 Major depressive disorder, recurrent, moderate; Z11.52 Encounter for screening for COVID-19; Z79.899 Other long term (current) drug therapy
CPT/HCPCS: 36415; 80053; 80307; 81001; 85025; 87635; 93005; 99283; 99285; S9485

== ENCOUNTER → 2023-06-07 01:19 | Outpatient (BNV) | payer SELFPAY | PROVIDERS: Emergency Provider Emergency Medicine Emergency Medical Services; Visit Provider Internal Medicine | DX: T50.901A Poisoning by unspecified drugs, medicaments and biological substances, accidental (unintentional), initial encounter (principal) | CPT/HCPCS: 93010 ==

== ENCOUNTER 2023-06-23 21:40 | Emergency (ER) | payer OTHER, SELFPAY ==
[2023-06-23 21:46] VITALS: BP 146/98; BP 159/108; PULSE 84; PULSE 89; RESP 15; TEMP 36.7; O2SAT 100; BMI 25.0
--- NOTE | 2023-06-23 21:54 | ED.OVERDOSE ---
HPI - Overdose General Chief Complaint: Overdose Stated Complaint: Opiate OD, 8mg narcan before ems arrival Time Seen by Provider: 06/23/23 21:48 History of Present Illness HPI Narrative: Patient is a 27-year-old male, he was at a friend's house using IV opiates. Went unresponsive. First responders gave him 8 mg of Narcan. Patient woke up. Currently he has no chest pain no fever no chills no SI he is hungry he wants to sleep. Admits to using crack cocaine as well. Related Data Allergies Allergy/AdvReac Type Severity Reaction Status Date / Time No Known Allergies Allergy Verified 06/23/23 21:53 [No Known Allergies*] Review of Systems Review of Systems: No fever no chills no systemic complaints Yes all other systems are reviewed and are negative [facility] Past Medical History Attestation statement: The following information was validated with the patient. Medical History Polysubstance abuse Social History Social History Alcohol intake: current Alcohol intake frequency: does not drink Patient Tobacco Use Status: Current everyday Tobacco user Substance Use Type: Heroin Advance Directives: No Advance Directives Information Provided: No Physical Exam Vital Signs: Vital Signs: Last Vital Signs Temp 98.1 F 06/23/23 21:46 Pulse 89 06/23/23 21:46 Resp 15 06/23/23 21:46 BP 159/108 H 06/23/23 21:46 Pulse Ox 100 06/23/23 21:46 O2 Del Method Room Air 06/23/23 21:46 BMI result Body Mass Index 25.0 Appearance: Alert. Oriented X3. No acute distress. Eyes: Pupils equal, round and reactive to light. ENT: Pharynx normal. Neck: Normal inspection. Neck supple. No lymph nodes noted. No crepitus CVS: Normal heart rate and rhythm. Pulses normal. Normal S1 and S2 Respiratory: No respiratory distress. Breath sounds normal. No Wheezing. No rales Abdomen: Soft and nontender. No rigidity. No distention. good BS x4 Skin: Skin warm and dry. Normal skin color. Normal skin turgor. Extremities: No lower extremity edema. Neurovascular intact to all extremities. No Lacerations. No Rash Neuro: Oriented X 3. No motor deficit. No sensory deficit. Moving all extermities. No slurred speech Medical Decision Making Medical Decision Making [facility] Narrative: Well-appearing no acute distress. Patient is given 8 mg of Narcan by 1st responders. Woke up nicely. O2 sat is 100% on room air lungs are clear no distress will monitor patient for 2 hours. Currently in stable condition. Patient's O2 sat remained at 100% on room air. In no acute distress. Monitor for 2 hours. Will discharge patient home. In stable condition. Explained to patient the need to stop using narcotics. Differential Diagnosis Differential Diagnoses: The differential diagnosis associated with the presentation includes Hypoglycemia, polysubstance abuse, heroin abuse, aspiration Admission/Observation Consideration of admission/observation: Escalation of care including admission/observation considered Currently well-appearing no distress Lab Data [facility] Lab Attestation statement: I reviewed the patient's lab results. Discharge Plan Discharge Clinical Impression: Drug overdose, Narcotic overdose Patient Disposition: Home, Self-Care Instructions: Narcotic Use Disorder (ED) Referrals: [facility] [Provider Group] (Please go to detox.) Print Language: Niuean
[2023-06-24 00:18] VITALS: BP 138/90; PULSE 76; RESP 12; O2SAT 97
[2023-06-24 03:22] VITALS: BP 128/80; PULSE 79; RESP 12; O2SAT 98
[2023-06-24] MEDS: Naloxone HCl Nasal TAKE HOME 4 MG SPRAY 8 MG NOSTRILALT (03:33)
[2023-06-24 07:12] VITALS: BP 128/80; PULSE 79; RESP 12; TEMP -17.7; TEMP 0; O2SAT 98
== END 2023-06-24 03:30 | disposition home or self-care (01) ==
PROVIDERS: Emergency Provider Emergency Medicine Emergency Medical Services
DX: T40.5X1A Poisoning by cocaine, accidental (unintentional), initial encounter (principal); F11.188 Opioid abuse with other opioid-induced disorder; Y92.9 Unspecified place or not applicable; F17.200 Nicotine dependence, unspecified, uncomplicated; F14.188 Cocaine abuse with other cocaine-induced disorder; Z71.51 Drug abuse counseling and surveillance of drug abuser
CPT/HCPCS: 99283

== ENCOUNTER 2023-08-07 10:46 | Emergency (ER) | payer SELFPAY ==
[2023-08-07 11:00] VITALS: BP 140/90; BP 146/92; PULSE 101; PULSE 105; RESP 18; TEMP 36.4; O2SAT 99; BMI 22.3
--- NOTE | 2023-08-07 11:00 | ED_ITS ---
HPI - Overdose General Chief Complaint: ETOH/Substance Use Stated Complaint: Heroine overdose, 12 mg narcan, per ems Source: patient, EMS and old records reviewed Mode of arrival: ambulatory Limitations: other (not very happy at the moment, easily agitated. ) History of Present Illness ED Provider: SIRIA HPI Narrative: 27 yo male with polysubstance abuse here with c/o accidental overdose this AM - found after using heroin and PD administered 12mg [place] narcan and needed to be bagged. EMS arrived and was awake. 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 No head trauma, no SI. He does want to talk to someone about starting methadone. He does not want to go to detox. 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 Source: old records reviewed Medical History Polysubstance abuse Social History Social History Alcohol intake: current Alcohol intake frequency: does not drink Patient Tobacco Use Status: Current everyday Tobacco user Use of substances other than those prescribed or required for medical reasons: Yes Substance Use Type: Crack/Cocaine, Heroin and Marijuana Substance Use Frequency: Chronic Longstanding Last Used Substance: Just Prior to Admission Any prior treatment program specific to substance use: No Advance Directives: No Advance Directives Information Provided: No Do you have a plan to hurt others: No Plan Physical Exam Vital Signs: Vital Signs: Last Vital Signs Temp 97.6 F 08/07/23 11:00 Pulse 105 H 08/07/23 11:00 Resp 18 08/07/23 11:00 BP 146/92 H 08/07/23 11:00 Pulse Ox 99 08/07/23 11:00 O2 Del Method Room Air 08/07/23 11:00 BMI result Body Mass Index 22.3 Appearance: Alert. Oriented X3. No acute distress. disheveled unkempt Eyes: Pupils equal, round and reactive to light. ENT: Pharynx normal. atraumatic Neck: Normal inspection. Neck supple. CVS: Normal heart rate and rhythm. Pulses normal. Respiratory: No respiratory distress. Breath sounds normal. Abdomen: Soft and nontender. Skin: Skin warm and dry. Normal skin color. Extremities: No lower extremity edema. Neuro: Oriented X 3. No motor deficit. No sensory deficit. Course Course Course Narrative: awake alert no need for repeat narcan addiction medicine involved will start on 30mg to follow up in clinic stable for DC observation care revealed that the patient does not meet medical necessity for hospitalization. final disposition discussed with the patient. The patient completed observation care at 345pm. Total time in observation care was 4 hours. Medications Administered Discontinued Medications Generic Name Dose Route Start Last Admin Trade Name Freq PRN Reason Stop Dose Admin Methadone HCl 30 mg 08/07/23 15:48 08/07/23 16:13 Methadone Hcl 20 Mg/2 Ml Oral.Conc PO 08/07/23 15:49 30 mg ONCE ONE Administration Naloxone HCl 8 mg 08/07/23 10:56 08/07/23 16:14 Naloxone Hcl Nasal Take Home 4 Mg [place] NOSTRILALT 08/07/23 10:57 8 mg ONCE ONE Administration Medical Decision Making Medical Decision Making [facility] Narrative: 27 yo male with PMH of substance abuse disorder here with c/o accidental overdose he was given narcan by PD and needed to be bagged. He denies SI. No head trauma at this time will need narcan to go, observation, offered SUDE eval for methadone evaluation. He states he does not want detox. Differential Diagnosis Differential Diagnoses: The differential diagnosis associated with the presentation includes opiate use disorder Admission/Observation Consideration of admission/observation: Escalation of care including admission/observation considered pending observation and improvement along with addiction medicine input physician observation started at [id number] Consult Healthcare Provider Management of the patient was discussed with: Editor Managing Director Lab Data [facility] Lab Attestation statement: I reviewed the patient's lab results. Independent Historian Clinical information obtained from an independent historian. History obtained from or confirmed by: EMS External Record Review External record reviewed: Inpatient record Prescription Management I considered prescription management with: Other Discharge Plan Discharge Clinical Impression: Drug overdose, Polysubstance abuse Patient Disposition: Home, Self-Care Instructions: Polysubstance Abuse (ED), Adult Overdose (ED) Additional Instructions: please follow up in our comprehensive care clinic as planned for methadone dosing tomorrow GIVEN 30MG AT [facility] 08/07/23 Print Language: Slovak
--- NOTE | 2023-08-07 13:36 | MHC.EDTECH ---
Addendum entered by Aldair Jones 08/07/23 13:37: Information faxed this morning upon patient's arrival Original Note: Addicion medicine was faxed information to see the patient.
--- NOTE | 2023-08-07 13:41 | P.EN_ITS ---
Event Note Date of Service: 08/07/23 Event Note: Addiction consult placed for patient who presented to ED following OD requiring narcan Per documentation he verbalized desire to start MOUD (methadone) associate professor of sociology and this property underwriter attempted to meet with patient X2 each time patient declining to engage in interview. Second time stating he wanted to sleep. Does not appear diaphoretic or restless, no reports of n/v. Discussed with RN. Once patient is more awake and appropriate to initiate methadone, he can be given 20-30mg and a last dose letter with instruction to present to [facility] early in the morning. associate professor of sociology or t/w can also come down and reassess once patient is up and awake. Time Spent With Patient Time: Total time managing care of this patient today ____ minutes.
[2023-08-07] MEDS: methADONE HCl 20 MG/2 ML ORAL.CONC 30 MG PO (16:13)
[2023-08-07] MEDS: Naloxone HCl Nasal TAKE HOME 4 MG SPRAY 8 MG NOSTRILALT (16:14)
[2023-08-07 16:32] VITALS: BP 132/77; PULSE 79; RESP 16; TEMP 36.9; O2SAT 99
== END 2023-08-07 16:33 | disposition home or self-care (01) ==
PROVIDERS: Emergency Provider Emergency Medicine
DX: T50.901A Poisoning by unspecified drugs, medicaments and biological substances, accidental (unintentional), initial encounter (principal); F19.10 Other psychoactive substance abuse, uncomplicated; Y92.9 Unspecified place or not applicable
CPT/HCPCS: 99284

== ENCOUNTER 2024-05-23 22:50 | Emergency (ER) | payer MEDICAID, SELFPAY ==
[2024-05-23 22:51] VITALS: BP 163/115; PULSE 106; RESP 16; TEMP 36.7; O2SAT 100; BMI 20.6
[2024-05-23 23:08] VITALS: BP 149/96; PULSE 107; RESP 18; TEMP 36.8; O2SAT 100
[2024-05-23 23:16] VITALS: PULSE 99
--- NOTE | 2024-05-23 23:17 | PC.NURSE ---
Addendum entered by Moni Rao RN 05/24/24 05:59: pt belongings on shelf 1 in [facility] Addendum entered by Moni Rao RN 05/23/24 23:44: pt currently denying any SI/HI. Original Note: pt changed over into hospital attire, security collected belongings an secured. pt calm and cooperative at this time requesting rehab services.
--- NOTE | 2024-05-24 01:21 | ED.OVERDOSE ---
HPI - Overdose General Chief Complaint: Overdose Stated Complaint: pt states he O'D Time Seen by Provider: 05/24/24 01:16 Source: patient Mode of arrival: ambulatory Limitations: no limitations History of Present Illness ED Provider: HPI Narrative: Patient's history of substance abuse uses IVDA heroin cocaine and drinks alcohol last drink was 1 week ago and last cocaine was yesterday today he used bundle of heroin which is usual for him became unresponsive received 3 doses of Narcan by the bystander now feeling much better requesting to go to [facility] where he wants to go off his own in the morning last name patient was not detox about 6 months ago stayed sober for 3 months Related Data Allergies Allergy/AdvReac Type Severity Reaction Status Date / Time No Known Allergies Allergy Verified 05/23/24 22:53 [No Known Allergies*] Review of Systems Review of Systems: Yes all other systems are reviewed and are negative [facility] Past Medical History Medical History Polysubstance abuse Social History Social History Alcohol intake: current Alcohol intake frequency: does not drink Patient Tobacco Use Status: Current everyday Tobacco user Smoked in Last 30 Days: Yes Use of substances other than those prescribed or required for medical reasons: Yes Substance Use Type: Crack/Cocaine, Heroin and Methamphetamine Advance Directives: No Advance Directives Information Provided: Yes Do you have a plan to hurt others: No Plan Physical Exam Vital Signs: Vital Signs: Last Vital Signs Temp 98.1 F 05/24/24 05:34 Pulse 91 05/24/24 05:34 Resp 16 05/24/24 05:34 BP 115/62 05/24/24 05:34 Pulse Ox 98 05/24/24 05:34 O2 Del Method Room Air 05/24/24 05:34 BMI result Body Mass Index 20.6 Appearance: Alert. Oriented X3. No acute distress. Anxious Eyes: PERRLA, No Nystagmus ENT: Pharynx normal. Oral Mucosa moist Neck: Normal inspection. Neck supple. CVS: Normal heart rate and rhythm. Pulses normal. Respiratory: No respiratory distress. Equal air entry bilateral, no wheezing/rales/rhonchi Abdomen: Soft and nontender. Bowel sounds are present, no mass palpable, no CVA tenderness Skin: Skin warm and dry. Normal skin color. Normal skin turgor. Extremities: No lower extremity edema. No calf tenderness Neuro: Oriented X 3. No motor deficit. No sensory deficit.No cerebellar signs , cranial nerves II-XII intact Medications Administered Discontinued Medications Generic Name Dose Route Start Last Admin Trade Name Leonel PRN Reason Stop Dose Admin Lorazepam 2 mg 05/24/24 01:45 05/24/24 01:52 Lorazepam 1 Mg Tablet PO 05/24/24 01:46 2 mg ONCE ONE Administration Naloxone HCl 8 mg 05/24/24 06:28 05/24/24 06:33 Naloxone Hcl Nasal Take Home 4 Mg [place] NOSTRILALT 05/24/24 06:29 8 mg ONCE ONE Administration Medical Decision Making Medical Decision Making [facility] Narrative: Patient with polysubstance abuse will send him to rita as patient has requested patient will like to go of his own urine drug screen is positive for cocaine and fentanyl Lab Data [facility] Lab Attestation statement: I reviewed the patient's lab results. Labs: Lab Results 05/24/24 Range/Units 01:38 Urine Opiates Screen POSITIVE H (Not Detect) Ur Buprenorphine Scrn Not Detected (Not Detect) ng/mL Ur Oxycodone Screen Not Detected (Not Detect) ng/mL Urine Methadone Screen Positive H (Not Detect) ng/mL Urine Fentanyl Screen POSITIVE H (Not Detect) Ur Barbiturates Screen Not Detected (Not Detect) Ur Phencyclidine Scrn Not Detected (Not Detect) Ur Amphetamines Screen Not Detected (Not Detect) U Benzodiazepines Scrn POSITIVE H (Not Detect) Urine Cocaine Screen POSITIVE H (Not Detect) U Marijuana (THC) Screen POSITIVE H (Not Detect) Discharge Plan Discharge Clinical Impression: Polysubstance abuse Patient Disposition: Home, Self-Care Instructions: Polysubstance Abuse (ED) Additional Instructions: Overdose You were seen in our Emergency Department for an overdose today. You received narcan in order to reverse the effects of overdose. Narcan only lasts about 45 min to 1 hour in the system. You may have been given narcan to take home with you today, please keep it near you if you are going to use again, so others can use it if needed.? The number one risk for fatal overdose is using alone? [facility] is a 09/10 hotline where you can be on the phone with someone while you use, and they can call for help if they suspect an overdose: [phone] Things to look out for when you leave include severe vomiting or diarrhea, headaches, muscle cramps, fever, coughing, chest pain, or if you feel so short of breath you cannot walk to the bathroom. Please seek care and return any time for worsening symptoms.? You may have been provided with safer injection?items, please take time to take care of YOU and your health. Use new supplies whenever possible to lessen the chances of infections and other illnesses.? If you need more supplies, please go [facility],? [address] [place] [address] OR you can call or text to coordinate delivery of safer supplies. If you decide you want to stop or cut down on how much you?re using, please call the numbers on the list provided to you or you can come to our outpatient Addiction Treatment office [facility] (M-F 9am-5p) [address], [address] [place], [place]. [phone] Follow up with Rita tate Print Language: Moldovan
[2024-05-24 01:33] VITALS: BP 130/74; PULSE 84; RESP 17; TEMP 36.8; O2SAT 98
[2024-05-24] MEDS: LORazepam 1 MG TABLET 2 MG PO (01:52)
[2024-05-24 01:56] LABS: Amphetamine Screen Urine Not Detected (Not Detect); Barbiturates, Urine Not Detected (Not Detect); Benzodiazepines Screen Urine POSITIVE (Not Detect); Buprenorphine Scr Not Detected (Not Detect); Cannabinoid Screen Urine POSITIVE (Not Detect); Cocaine Screen Urine POSITIVE (Not Detect); Fentanyl, urine POSITIVE (Not Detect); Methadone Screen, Urine Positive (Not Detect); Opiate Screen Urine POSITIVE (Not Detect); Oxycodone Screen Urine Not Detected (Not Detect); Phencyclidine Screen Urine Not Detected (Not Detect)
[2024-05-24 03:39] VITALS: PULSE 82
[2024-05-24 05:34] VITALS: BP 115/62; PULSE 91; RESP 16; TEMP 36.7; O2SAT 98
[2024-05-24] MEDS: Naloxone HCl Nasal TAKE HOME 4 MG SPRAY 8 MG NOSTRILALT (06:33)
[2024-05-24 06:41] VITALS: BP 115/62; PULSE 91; RESP 16; TEMP 36.7; O2SAT 98
== END 2024-05-24 07:37 | disposition home or self-care (01) ==
PROVIDERS: Emergency Provider Internal Medicine
DX: F19.10 Other psychoactive substance abuse, uncomplicated (principal)
CPT/HCPCS: 80307; 99284; 99285

== ENCOUNTER 2024-05-31 22:11 | Emergency (ER) | payer MEDICAID, SELFPAY ==
[2024-05-31 22:31] VITALS: BP 135/101; PULSE 109; RESP 18; TEMP 37.1; O2SAT 100; BMI 21.6
[2024-05-31 22:36] VITALS: BP 108/82; PULSE 80; O2SAT 100
--- NOTE | 2024-05-31 23:00 | PC.NURSE ---
pt moved to [facility] has 1:1 sitter. handover to Nasreen CARBAJAL.
[2024-05-31 23:25] VITALS: BP 126/94; PULSE 95; RESP 16; TEMP 36.9; O2SAT 97
[2024-05-31 23:26] LABS: MANUAL DIFF FLAG NO
[2024-05-31 23:27] LABS: Basophils Percent Auto 0.2 % (0-2); Eosinophils Percent Auto 0.1 % (0-4); Hematocrit 39.9 % (42.0-52.0); Hemoglobin 13.9 g/dl (14.0-18.0); Imm Gran Abs Auto 0.02 X10*3/uL (0.00-0.03); Imm Gran Pct Auto 0.2 % (0.0-0.4); Lymphocytes Absolute Auto 2.1 X10*3/uL (1.2-4.9); Lymphocytes Percent Auto 25.9 % (20-40); Mean Corpuscular HGB Conc 34.8 g/dl (31.0-36.0); Mean Corpuscular Hemoglobin 28.5 pg (27.0-33.0); Mean Corpuscular Volume 81.9 fL (80.0-98.0); Monocytes Absolute Auto 0.7 X10*3/uL (0.1-1.2); Monocytes Percent Auto 8.5 % (2-11); Neutrophils Absolute Auto 5.3 x10*3/uL (2.0-8.3); Neutrophils Percent Auto 65.1 % (45-73); Platelet Count 300 X10*3/uL (160-400); Red Blood Count 4.87 X10*6/uL (4.60-5.80); White Blood Count 8.2 X10*3/uL (4.8-10.8)
--- NOTE | 2024-05-31 23:43 | ED.OVERDOSE ---
HPI - Overdose General Chief Complaint: Psychiatric Symptoms Stated Complaint: overdose narcan 3 times by pd Time Seen by Provider: 05/31/24 22:14 Source: patient Mode of arrival: EMS Limitations: no limitations History of Present Illness ED Provider: HPI Narrative: patient's history of opiate , fentanyl, cocaine abuse had IV heroin earlier today was found unresponsive by the PD in the [facility] bathroom was given 4 mg x3 intranasal Narcan by the PD when EMS arrived patient was alert oriented x3 breathing normally no CPR done after arrival patient admits suicidal ideation by overdosing patient is homeless has been here with similar presentation in the past Related Data Allergies Allergy/AdvReac Type Severity Reaction Status Date / Time No Known Allergies Allergy Verified 05/31/24 22:32 [No Known Allergies*] Review of Systems Review of Systems: Yes all other systems are reviewed and are negative PMFSH Past Medical History Medical History Polysubstance abuse Social History Social History Alcohol intake: current Alcohol intake frequency: does not drink Patient Tobacco Use Status: Current everyday Tobacco user Smoked in Last 30 Days: Yes Use of substances other than those prescribed or required for medical reasons: Yes Substance Use Type: Crack/Cocaine, Heroin and Marijuana Advance Directives: No Do you have a plan to hurt others: No Plan Physical Exam Vital Signs: Vital Signs: Last Vital Signs Temp 98.4 F 06/01/24 04:08 Pulse 85 06/01/24 04:08 Resp 17 06/01/24 04:08 BP 129/83 06/01/24 04:08 Pulse Ox 100 06/01/24 04:08 O2 Del Method Room Air 06/01/24 04:08 BMI result Body Mass Index 21.6 Appearance: Alert. Oriented X3. No acute distress. Eyes: PERRLA, No Nystagmus ENT: Pharynx normal. Oral Mucosa moist Neck: Normal inspection. Neck supple. CVS: Normal heart rate and rhythm. Pulses normal. Respiratory: No respiratory distress. Equal air entry bilateral, no wheezing/rales/rhonchi Abdomen: Soft and nontender. Bowel sounds are present, no mass palpable, no CVA tenderness Skin: Skin warm and dry. Normal skin color. Normal skin turgor. Extremities: No lower extremity edema. No calf tenderness IVDA skelton++ psych: admits suicidal ideation by overdosing with heroin Neuro: Oriented X 3. No motor deficit. No sensory deficit.No cerebellar signs , cranial nerves II-XII intact Medical Decision Making Medical Decision Making [facility] Narrative: patient with polysubstance abuse overdosing on heroin status post Narcan after arrival patient asking for help as feel depressed and suicidal with plan to overdose on heroin will get care team evaluation Lab Data [facility] Lab Attestation statement: I reviewed the patient's lab results. 05/31/24 23:21 05/31/24 23:21 Labs: Lab Results 05/31/24 Range/Units 23:21 WBC 8.2 (4.8-10.8) X10*3/uL RBC 4.87 (4.60-5.80) X10*6/uL Hgb 13.9 L (14.0-18.0) g/dl Hct 39.9 L (42.0-52.0) % MCV 81.9 (80.0-98.0) fL MCH 28.5 (27.0-33.0) pg MCHC 34.8 (31.0-36.0) g/dl RDW 14.0 (11.0-16.0) % Plt Count 300 (160-400) X10*3/uL MPV 10.0 (9.4-12.4) fL Immature Gran % (Auto) 0.2 (0.0-0.4) % Neut % (Auto) 65.1 (45-73) % Lymph % (Auto) 25.9 (20-40) % [place] % (Auto) 8.5 (2-11) % Eos % (Auto) 0.1 (0-4) % Baso % (Auto) 0.2 (0-2) % Lymph # (Auto) 2.1 (1.2-4.9) X10*3/uL [place] # (Auto) 0.7 (0.1-1.2) X10*3/uL Eos # (Auto) 0.0 (0.0-0.4) X10*3/uL Baso # (Auto) 0.0 (0.0-0.2) X10*3/uL Abs Immat Gran (auto) 0.02 (0.00-0.03) X10*3/uL Absolute Neuts (auto) 5.3 (2.0-8.3) x10*3/uL Absolute Nucleated RBC 0.000 (0.0-0.012) X10*3/uL Nucleated RBC % (auto) 0.0 (0.0-0.2) /100WBC Sodium 140 (135-145) mmol/L Potassium 3.6 (3.3-5.1) mmol/L Chloride 107 (96-108) mmol/L Carbon Dioxide 22 (22-29) mmol/L Anion Gap 15 (12-20) BUN 13 (9-16) mg/dL Creatinine 0.79 (0.5-1.4) mg/dL Estim Creat Clear Calc 115.0 Estimated GFR > 60 Random Glucose 90 (60-115) mg/dL Calcium 9.5 (8.4-10.2) mg/dL Total Bilirubin 0.5 (0.0-1.0) mg/dL AST 32 (5-37) U/L ALT 21 (0-40) U/L Alkaline Phosphatase 65 (39-117) U/L Total Protein 7.5 (6.5-8.0) g/dL Albumin 4.2 (3.5-5.0) g/dL Salicylates < 5.0 L (15-30) mg/dL Acetaminophen < 3 (<30) mcg/mL Ethyl Alcohol < 10 mg/dL Discharge Plan Discharge Clinical Impression: Opiate abuse, continuous, Depression with suicidal ideation Patient Disposition: Still a Patient Interventions: [place]-Suicide Risk Severity Scale Last Done: 05/31/24 22:45 Print Language: Bengali
[2024-05-31 23:45] LABS: Acetaminophen LAB < 3 mcg/mL (<30); Alanine Aminotransferase 21 U/L (0-40); Albumin Level 4.2 g/dL (3.5-5.0); Alkaline Phosphatase 65 U/L (39-117); Anion Gap 15 (12-20); Aspartate Amino Transferase 32 U/L (5-37); Bilirubin Total 0.5 mg/dL (0.0-1.0); Blood Urea Nitrogen 13 mg/dL (9-16); Calcium 9.5 mg/dL (8.4-10.2); Carbon Dioxide 22 mmol/L (22-29); Chloride 107 mmol/L (96-108); Estimated Glomerular Filt Rate > 60; Ethanol < 10 mg/dL; Glucose Random 90 mg/dL (60-115); Potassium 3.6 mmol/L (3.3-5.1); Salicylate < 5.0 mg/dL (15-30); Sodium 140 mmol/L (135-145); Total Protein 7.5 g/dL (6.5-8.0)
--- NOTE | 2024-05-31 23:50 | PC.NURSE ---
pt admits to thoughts of SI/self harm. MD Muniz at bedside and assessing patient. pt says he is going through a lot and his plan is to overdose and . uses heroin. pt sitting up eating sandwich, given ice cream crackers and jayy phu. report called to kassy CARBAJAL. pt ambulated with steady gait into behavioral health pod at this time.
[2024-06-01 04:08] VITALS: BP 129/83; PULSE 85; RESP 17; TEMP 36.9; O2SAT 100
[2024-06-01 07:00] LABS: Amphetamine Screen Urine Not Detected (Not Detect); Barbiturates, Urine Not Detected (Not Detect); Benzodiazepines Screen Urine Not Detected (Not Detect); Buprenorphine Scr Not Detected (Not Detect); Cannabinoid Screen Urine POSITIVE (Not Detect); Cocaine Screen Urine POSITIVE (Not Detect); Fentanyl, urine POSITIVE (Not Detect); Methadone Screen, Urine Not Detected (Not Detect); Opiate Screen Urine POSITIVE (Not Detect); Oxycodone Screen Urine Not Detected (Not Detect); Phencyclidine Screen Urine Not Detected (Not Detect)
[2024-06-01 07:16] LABS: Appearance Urine Cloudy; Color Urine Dark Yellow; Glucose Urine UA Negative (Negative); Leukocyte Esterase Urine Moderate (2+) (Negative); Nitrite Urine Negative (Negative); PH 5.5 (5.0-9.0); Specific Gravity - Urine >= 1.030 (1.005-1.025); UMIC TRIGGER UACC YES; Urine Blood Negative (Negative); Urine Ketones Trace mg/dL (Negative); Urine Protein 30 (1+) mg/dL (Neg-Trace)
[2024-06-01 07:34] LABS: Bacteria Urine None Seen (None Seen); Calcium Oxalate Crystals Urine Present; Hyaline Casts Urine 0-2 /LPF (0-2); RBC Urine 0-2 /HPF (0-2); UACC Culture Trigger YES
--- NOTE | 2024-06-01 08:19 | MHC.CARE ---
Pt will be a dual dx bedsearch.
[2024-06-01] MEDS: methADONE HCl 20 MG/2 ML ORAL.CONC 40 MG PO (09:25)
[2024-06-01] MEDS: Nicotine 21 MG PATCH.TD24 TRANSDERMA (13:22)
[2024-06-01] MEDS: Nicotine Polacrilex 2 MG GUM BUCCAL ×2 (13:23→14:57)
--- NOTE | 2024-06-01 14:19 | PC.NURSE ---
Pt taking shower at this time; calm/cooperative
[2024-06-01 14:37] VITALS: BP 121/88; PULSE 83; RESP 15; TEMP 36.9; O2SAT 99
[2024-06-01] MEDS: LORazepam 1 MG TABLET PO (14:56)
--- NOTE | 2024-06-01 15:15 | HO.SUDE ---
Pt was brought in the ED after being found unresponsive in the [place] bathroom. Pt required Narcan resuscitation with 3 x 4mg of Narcan which was administered by police. Met with Flo in [facility] for a SUDE. Pt appeared disheveled and was malodorous but was pleasant and accepting to meet for a 1:1 discussion and SUDE. He stated his overdose was intentional in order to end his life. Stressors have been chronic including chronic homelessness and substance use. Further stressors include the mother of his children being sent to retirement and being unable to be a present father for his daughters. He stated he has been using about a bundle of heroin daily for the past two months. He also stated that he has been using the same amount of cocaine as well. In his own words I can only use heroin/fentanyl with cocaine now otherwise I feel like it does not work. I find that cocaine has fentanyl too in it. Pt stated he has been injecting substances all over his body including his neck. He states he has overdosed 23 times and has had multiple ATS/CSS admissions including at [facility] and [facility]. He reports a hx of Schizophrenia, Bipolar, PTSD, and ADHD. Pt endorses a family history of DON and MH diagnosis on both the maternal and paternal sides of the family. Discussed with Dr Desai and pt was restarted on methadone 40mg. Pt is support seeking and found to be IPLOC due to multiple risk factors- is a dual diagnosis bed search at this time.
--- NOTE | 2024-06-01 15:23 | PC.NURSE ---
Pt medicated per orders for withdrawal
[2024-06-01] MEDS: QUEtiapine Fumarate 100 MG TABLET PO (20:06)
--- NOTE | 2024-06-01 23:49 | PC.NURSE ---
Took over care from SOLOMON Dooley, pt sleeping at this time.
--- NOTE | 2024-06-02 | ECG_ITS ---
Test Reason : R/O PROLONGED QT Blood Pressure : */* mmHG Vent. Rate : 86 BPM Atrial Rate : 86 BPM P-R Int : 120 ms QRS Dur : 94 ms QT Int : 368 ms P-R-T Axes : 81 79 58 degrees QTcB Int : 440 ms Normal sinus rhythm Normal ECG When compared with ECG of 07-Jun-2023 01:19, No significant change was found Referred By: Roel Muniz Electronically Signed By: Mamadou Lopez
[2024-06-02 06:38] VITALS: RESP 16
[2024-06-02 10:12] VITALS: BP 123/83; PULSE 91; RESP 14; TEMP 36.2; O2SAT 98
--- NOTE | 2024-06-02 10:53 | PHA.MEDREC ---
Addendum entered by Sury Velasco RPh 06/02/24 11:15: Med rec was reviewed by [facility]. Original Note: Pharmacy Consult ? Medication Reconciliation Pharmacy has completed the medication reconciliation. Spoke with patient and he confirmed he is not taking any medications at this time, OTC or Prescription.
[2024-06-02] MEDS: methADONE HCl 20 MG/2 ML ORAL.CONC 40 MG PO (13:42)
[2024-06-02] MEDS: Nicotine Polacrilex 2 MG GUM BUCCAL ×2 (15:47→19:12)
--- NOTE | 2024-06-02 19:08 | PC.NURSE ---
patient irritable antagonistic, rude to staff when limits set.
[2024-06-02 19:48] VITALS: BP 112/67; PULSE 87; RESP 16; TEMP 37; O2SAT 98
== END 2024-06-02 20:04 | disposition home or self-care (01) ==
PROVIDERS: Emergency Provider Internal Medicine
DX: T40.1X1A Poisoning by heroin, accidental (unintentional), initial encounter (principal); R40.4 Transient alteration of awareness; F19.10 Other psychoactive substance abuse, uncomplicated; F14.10 Cocaine abuse, uncomplicated; Y92.511 Restaurant or cafe as the place of occurrence of the external cause; R45.851 Suicidal ideations; F32.A Depression, unspecified
CPT/HCPCS: 36415; 80053; 80143; 80179; 80307; 81001; 85025; 87086; 93005; 99285; S9485

== ENCOUNTER → 2024-06-02 08:22 | Outpatient (BNV) | payer MEDICAID, SELFPAY | PROVIDERS: Emergency Provider Internal Medicine; Visit Provider Internal Medicine Cardiovascular Disease | DX: Z13.6 Encounter for screening for cardiovascular disorders (principal) | CPT/HCPCS: 93010 ==

== ENCOUNTER 2024-07-03 08:55 | Inpatient (IN) | payer MEDICAID, OTHER, SELFPAY ==
--- NOTE | ~2024-07-03 | XR_ITS ---
EXAMINATION: XR CHEST CLINICAL INFORMATION: KEVIN lee, MSE changes COMPARISON: 04/03/2022, 02/07/2019. TECHNIQUE: 2 views of the chest were obtained. FINDINGS: The cardiac, hilar, and mediastinal contours are normal. There are very subtle lingular opacities in the lungs. Lungs are otherwise clear. There is no pneumothorax or pleural effusion. There is no focal osseous or soft tissue abnormality. XR/XR chest 2V IMPRESSION: Very subtle lingular opacities in the lungs, could represent subtle pneumonia in the appropriate clinical setting. Electronically signed by: Brian Alejandro MD 07/10/2024 11:45 AM EDT
[2024-07-03 09:03] VITALS: BP 136/100; PULSE 107; PULSE 90; RESP 18; TEMP 36.4; O2SAT 100; O2SAT 98; BMI 18.7
--- NOTE | 2024-07-03 09:20 | ED_ITS ---
HPI - Overdose General Chief Complaint: Overdose Stated Complaint: OD,2 NARCAN GIVEN W/GOOD RESULT PER EMS Time Seen by Provider: 07/03/24 09:06 Source: patient Mode of arrival: EMS Limitations: no limitations History of Present Illness ED Provider: SIRIA EMERSON Narrative: 28 yo male with polysubstance abuse uses IVDA and injected today received 2 dose of bystander narcan. He reports he did this to kill himself. He denies any recent medical issues or concerns. He wants to start methadone and needs dual dx he states. complaint: intentional overdose Onset (ago): minute(s) ([employer]) Intent: suicide attempt How Overdose Was Discovered: other (bystander) Context: Intentional Overdose: other Associated symptoms: depression Treatments Prior to Arrival: narcan (2 IN doses) Related Data Home Medications ?Medication ?Instructions ?Recorded ?Confirmed No Known Home Meds 06/02/24 06/02/24 Allergies Allergy/AdvReac Type Severity Reaction Status Date / Time No Known Allergies Allergy Verified 07/03/24 09:07 [No Known Allergies*] Review of Systems 2 Review of Systems: Constitutional : No Fever, No Chills ENT/Mouth : No Ear Pain, No Nasal Congestion, No sore throat Eyes: No Eye Pain, No Swelling, No Redness Cardiovascular : No Chest Pain, No SOB Respiratory : No Cough, No Sputum, No Dyspnea Gastrointestinal : No Nausea, No Vomiting, No Diarrhea, No Hematochezia, No Melena Genitourinary : No Dysuria, No Urinary Frequency, No Hematuria Musculoskeletal : No Myalgias Skin : No Skin Lesions, No rash Neuro : No Weakness, No Numbness, No Paresthesias, No Dizziness, No Headache Psych : positive Anxiety, positive Depression, positive SI no HI Heme/Lymph: No Lymphadenopathy Endocrine : No Polyuria, No Polydipsia All other systems reviewed and are negative PMFSH Past Medical History Attestation statement: The following information was validated with the patient. Source: old records reviewed Medical History Polysubstance abuse Social History Social History Unable to assess alcohol history related to: Unknown Alcohol intake: current Alcohol intake frequency: does not drink Patient Tobacco Use Status: Current everyday Tobacco user Smoked in Last 30 Days: No Use of substances other than those prescribed or required for medical reasons: Unknown Substance Use Type: Crack/Cocaine, Heroin and Marijuana Advance Directives: No Advance Directives Information Provided: Yes Physical Exam 2 Vital Signs: Vital Signs: Last Vital Signs Temp 97.2 F 07/03/24 15:18 Pulse 72 07/03/24 15:18 Resp 14 07/03/24 15:18 BP 119/76 07/03/24 15:18 Pulse Ox 100 07/03/24 15:18 O2 Del Method Room Air 07/03/24 15:18 BMI result Body Mass Index 18.7 Appearance: Alert. Oriented X3. No acute distress. Eyes: Pupils equal, round and reactive to light. ENT: Pharynx normal. old healing abrasion R forehead Neck: Normal inspection. Neck supple. CVS: Normal heart rate and rhythm. Pulses normal. Respiratory: No respiratory distress. Breath sounds normal. Abdomen: Soft and nontender. Skin: Skin warm and dry. Normal skin color. Normal skin turgor. Extremities: No lower extremity edema. Neuro: Oriented X 3. No motor deficit. No sensory deficit. CN2-12 intact Medications Administered Discontinued Medications Generic Name Dose Route Start Last Admin Trade Name Freq PRN Reason Stop Dose Admin Methadone HCl 40 mg 07/03/24 09:16 07/03/24 09:51 Methadone Hcl 20 Mg/2 Ml Oral.Conc PO 07/03/24 09:17 40 mg ONCE ONE Administration Naloxone HCl 8 mg 07/03/24 09:16 07/03/24 09:51 Naloxone Hcl Nasal Take Home 4 Mg [place] NOSTRILALT 07/03/24 09:17 8 mg ONCE ONE Administration Ondansetron HCl 4 mg 07/03/24 09:16 07/03/24 09:44 Ondansetron Odt 4 Mg Tab.Rapdis TRANSLINGU 07/03/24 09:17 Not Given ONCE ONE Medical Decision Making Medical Decision Making MDM Narrative: 28 yo male with PMH of opiate use disorder who reports he injected heroin to kill himself. Was given 2 doses of bystander narcan. NO trauma reported. He has SI - he wants to go dual dx. At this time labs and CARE team consult, start on 40mg methadone and monitor closely Differential Diagnosis Differential Diagnoses: The differential diagnosis associated with the presentation includes depression, OUD, overdose Admission/Observation Consideration of admission/observation: Escalation of care including admission/observation considered physician observation started at 921am pending CARE team Consult Healthcare Provider Management of the patient was discussed with: Behavioral Health Provider Lab Data MDM Lab Attestation statement: I reviewed the patient's lab results. 07/03/24 10:18 07/03/24 10:18 Labs: Lab Results 07/03/24 07/03/24 Range/Units 10:18 11:31 WBC 13.7 H (4.8-10.8) X10*3/uL RBC 4.58 L (4.60-5.80) X10*6/uL Hgb 13.2 L (14.0-18.0) g/dl Hct 40.0 L (42.0-52.0) % MCV 87.3 (80.0-98.0) fL MCH 28.8 (27.0-33.0) pg MCHC 33.0 (31.0-36.0) g/dl RDW 14.9 (11.0-16.0) % Plt Count 317 (160-400) X10*3/uL MPV 9.6 (9.4-12.4) fL Immature Gran % (Auto) 0.6 H (0.0-0.4) % Neut % (Auto) 85.6 H (45-73) % Lymph % (Auto) 8.5 L (20-40) % [place] % (Auto) 4.9 (2-11) % Eos % (Auto) 0.1 (0-4) % Baso % (Auto) 0.3 (0-2) % Lymph # (Auto) 1.2 (1.2-4.9) X10*3/uL [place] # (Auto) 0.7 (0.1-1.2) X10*3/uL Eos # (Auto) 0.0 (0.0-0.4) X10*3/uL Baso # (Auto) 0.0 (0.0-0.2) X10*3/uL Abs Immat Gran (auto) 0.08 H (0.00-0.03) X10*3/uL Absolute Neuts (auto) 11.7 H (2.0-8.3) x10*3/uL Absolute Nucleated RBC 0.000 (0.0-0.012) X10*3/uL Nucleated RBC % (auto) 0.0 (0.0-0.2) /100WBC Sodium 142 (135-145) mmol/L Potassium 5.1 D (3.3-5.1) mmol/L Chloride 107 (96-108) mmol/L Carbon Dioxide 29 (22-29) mmol/L Anion Gap 11 L (12-20) BUN 16 (9-16) mg/dL Creatinine 0.74 (0.5-1.4) mg/dL Estim Creat Clear Calc 106.0 Estimated GFR > 60 Random Glucose 89 (60-115) mg/dL Calcium 9.2 (8.4-10.2) mg/dL Magnesium 2.7 H (1.6-2.6) mg/dL Total Bilirubin 0.3 (0.0-1.0) mg/dL Direct Bilirubin 0.1 (0.0-0.5) mg/dL AST 30 (5-37) U/L ALT 22 (0-40) U/L Alkaline Phosphatase 74 (39-117) U/L Total Protein 7.2 (6.5-8.0) g/dL Albumin 4.2 (3.5-5.0) g/dL Urine Opiates Screen POSITIVE H (Not Detect) Ur Buprenorphine Scrn Not Detected (Not Detect) ng/mL Ur Oxycodone Screen Not Detected (Not Detect) ng/mL Urine Methadone Screen Positive H (Not Detect) ng/mL Urine Fentanyl Screen POSITIVE H (Not Detect) Ur Barbiturates Screen Not Detected (Not Detect) Ur Phencyclidine Scrn Not Detected (Not Detect) Ur Amphetamines Screen Not Detected (Not Detect) U Benzodiazepines Scrn Not Detected (Not Detect) Urine Cocaine Screen POSITIVE H (Not Detect) U Marijuana (THC) Screen POSITIVE H (Not Detect) Ethyl Alcohol < 10 mg/dL Independent Historian Clinical information obtained from an independent historian. History obtained from or confirmed by: EMS External Record Review External record reviewed: Outpatient record Discharge Plan Discharge Clinical Impression: Drug overdose Qualifiers: Encounter type: initial encounter Injury intent: intentional self-harm Q ualified Code(s): T50.902A - Poisoning by unspecified drugs, medicaments and biological substances, intentional self-harm, initial encounter Prescriptions: No Action No Known Home Meds Print Language: Uzbek
--- NOTE | 2024-07-03 09:39 | PC.NURSE ---
pt denies nausea. he refuses the zofran. requesting food states overdose was intentional.
[2024-07-03] MEDS: methADONE HCl 20 MG/2 ML ORAL.CONC 40 MG PO (09:51)
[2024-07-03] MEDS: Naloxone HCl Nasal TAKE HOME 4 MG SPRAY 8 MG NOSTRILALT (09:51)
--- NOTE | 2024-07-03 09:52 | PC.NURSE ---
pt arrived to ED at 0855 and triaged at [address]. [address] rankin give methadone now
[2024-07-03 10:23] LABS: MANUAL DIFF FLAG NO
[2024-07-03 10:29] LABS: Basophils Percent Auto 0.3 % (0-2); Eosinophils Percent Auto 0.1 % (0-4); Hemoglobin 13.2 g/dl (14.0-18.0); Imm Gran Abs Auto 0.08 X10*3/uL (0.00-0.03); Imm Gran Pct Auto 0.6 % (0.0-0.4); Lymphocytes Absolute Auto 1.2 X10*3/uL (1.2-4.9); Lymphocytes Percent Auto 8.5 % (20-40); Mean Corpuscular Hemoglobin 28.8 pg (27.0-33.0); Mean Corpuscular Volume 87.3 fL (80.0-98.0); Mean Platelet Volume 9.6 fL (9.4-12.4); Monocytes Absolute Auto 0.7 X10*3/uL (0.1-1.2); Monocytes Percent Auto 4.9 % (2-11); Neutrophils Absolute Auto 11.7 x10*3/uL (2.0-8.3); Neutrophils Percent Auto 85.6 % (45-73); Platelet Count 317 X10*3/uL (160-400); Red Blood Count 4.58 X10*6/uL (4.60-5.80); Red Cell Distribution Width 14.9 % (11.0-16.0); White Blood Count 13.7 X10*3/uL (4.8-10.8)
[2024-07-03 10:47] LABS: Alanine Aminotransferase 22 U/L (0-40); Albumin Level 4.2 g/dL (3.5-5.0); Alkaline Phosphatase 74 U/L (39-117); Anion Gap 11 (12-20); Aspartate Amino Transferase 30 U/L (5-37); Bilirubin Direct 0.1 mg/dL (0.0-0.5); Bilirubin Total 0.3 mg/dL (0.0-1.0); Blood Urea Nitrogen 16 mg/dL (9-16); Calcium 9.2 mg/dL (8.4-10.2); Carbon Dioxide 29 mmol/L (22-29); Chloride 107 mmol/L (96-108); Estimated Glomerular Filt Rate > 60; Ethanol < 10 mg/dL; Glucose Random 89 mg/dL (60-115); Magnesium 2.7 mg/dL (1.6-2.6); Potassium 5.1 mmol/L (3.3-5.1); Sodium 142 mmol/L (135-145); Total Protein 7.2 g/dL (6.5-8.0)
[2024-07-03 12:02] LABS: Amphetamine Screen Urine Not Detected (Not Detect); Barbiturates, Urine Not Detected (Not Detect); Benzodiazepines Screen Urine Not Detected (Not Detect); Buprenorphine Scr Not Detected (Not Detect); Cannabinoid Screen Urine POSITIVE (Not Detect); Cocaine Screen Urine POSITIVE (Not Detect); Fentanyl, urine POSITIVE (Not Detect); Methadone Screen, Urine Positive (Not Detect); Opiate Screen Urine POSITIVE (Not Detect); Oxycodone Screen Urine Not Detected (Not Detect); Phencyclidine Screen Urine Not Detected (Not Detect)
[2024-07-03 15:18] VITALS: BP 119/76; PULSE 72; RESP 14; TEMP 36.2; O2SAT 100
[2024-07-03] MEDS: Nicotine Polacrilex 2 MG GUM BUCCAL (19:24)
[2024-07-03 20:59] VITALS: BP 128/86; PULSE 69; RESP 18; TEMP 37.3; O2SAT 99
--- NOTE | 2024-07-04 | ECG_ITS ---
Test Reason : PROLONG QT Blood Pressure : */* mmHG Vent. Rate : 66 BPM Atrial Rate : 66 BPM P-R Int : 118 ms QRS Dur : 90 ms QT Int : 382 ms P-R-T Axes : 72 70 43 degrees QTcB Int : 400 ms Normal sinus rhythm Normal ECG When compared with ECG of 02-Jun-2024 08:22, No significant change was found Referred By: Guillermina Galindo Electronically Signed By: RADHA JUÁREZ MD
[2024-07-04 06:38] VITALS: BP 113/65; PULSE 62; RESP 16; TEMP 36.8; O2SAT 100
[2024-07-04 07:56] LABS: Appearance Urine Clear; Color Urine Yellow; Glucose Urine UA 100 mg/dL (Negative); Leukocyte Esterase Urine Negative (Negative); Nitrite Urine Negative (Negative); PH 6.5 (5.0-9.0); Specific Gravity - Urine 1.025 (1.005-1.025); Urine Blood Negative (Negative); Urine Ketones Trace mg/dL (Negative); Urine Protein Trace mg/dL (Neg-Trace)
[2024-07-04] MEDS: Nicotine 21 MG PATCH.TD24 TRANSDERMA (09:26)
[2024-07-04] MEDS: Nicotine Polacrilex 2 MG GUM BUCCAL ×2 (09:28→14:48)
--- NOTE | 2024-07-04 10:20 | MHC.EDTECH ---
Patient refused lab draw at this time. RN aware
--- NOTE | 2024-07-04 12:07 | PHA.MEDREC ---
Pharmacy Consult ? Medication Reconciliation Pharmacy has completed the medication reconciliation.med rec entered by nursing, looks like meds were stated by patient. Patient at this time is not communicating when asked if any meds. there is no claim history.
[2024-07-04 13:40] VITALS: BP 132/72; PULSE 82; RESP 16; TEMP 36.8; O2SAT 97
--- NOTE | 2024-07-04 17:44 | PC.NURSE ---
Flo arrived to @ 1336 via wheel chair. Skin and safety check performed, vitals obtained, and pt oriented to unit. Admission complete other than safety tool which was relayed to oncoming shift Pt is a 28-year-old, homeless, , Welsh speaking male seen in the [facility] ED after he presented via ambulance from the community. Patient reports he intentionally overdosed on heroin during a SA and reports a bystander /friend found him and gave him two doses of Narcan. 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 Tox screen positive for opiates, methadone (given in ED), fentanyl, cocaine and cannabis. Flo has previous admissions to detox facilities. He denies current providers, therapist, and reports trauma history (no details provided). Flo reports DX of schizophrenia and reports he has not been on medication for several months. He ports AVH of shadows and murmurs at baseline. I try not to pay attention to them . He reports depression and anxiety rated 7/10 and denies si/hi/ at this time. He was placed on 15min checks. Pt is an active smoker, nrt ordered, addiction med consult entered.
[2024-07-04 18:13] VITALS: BMI 19.6
--- NOTE | 2024-07-04 18:59 | P.EN_ITS ---
Event Note Date of Service: 07/04/24 Event Note: Addiction consult for patient recent opioid overdose requiring na rcan--requesting continuation of methadone Received methadone 40mg in ED Plan: methadone 50mg in AM (07/05) will follow up in AM to complete eval and plan for dose titration as appropriate Time Spent With Patient Time: Total time managing care of this patient today ____ minutes.
[2024-07-04] MEDS: OLANZapine 5 MG TABLET PO (19:26)
[2024-07-04 20:00] VITALS: BP 131/78; PULSE 92; RESP 16; TEMP 37.7; O2SAT 98
[2024-07-05] MEDS: methADONE HCl 20 MG/2 ML ORAL.CONC 50 MG PO (07:47)
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
[2024-07-05 09:05] VITALS: BP 146/84; PULSE 85; TEMP 37.6; O2SAT 98
[2024-07-05] MEDS: Nicotine Polacrilex 2 MG GUM 4 MG BUCCAL ×2 (09:29→20:13)
[2024-07-05] MEDS: Nicotine 21 MG PATCH.TD24 TRANSDERMA (09:29)
[2024-07-05] MEDS: FLUoxetine HCl Oral Solution 20 MG/5 ML SOLUTION 10 MG PO (09:32)
[2024-07-05 10:44] LABS: MANUAL DIFF FLAG NO
[2024-07-05 10:45] LABS: Basophils Percent Auto 0.2 % (0-2); Eosinophils Percent Auto 0.2 % (0-4); Hematocrit 43.3 % (42.0-52.0); Imm Gran Abs Auto 0.05 X10*3/uL (0.00-0.03); Imm Gran Pct Auto 0.4 % (0.0-0.4); Lymphocytes Absolute Auto 2.6 X10*3/uL (1.2-4.9); Lymphocytes Percent Auto 19.7 % (20-40); Mean Corpuscular HGB Conc 32.3 g/dl (31.0-36.0); Mean Corpuscular Hemoglobin 27.9 pg (27.0-33.0); Mean Corpuscular Volume 86.3 fL (80.0-98.0); Monocytes Absolute Auto 1.1 X10*3/uL (0.1-1.2); Monocytes Percent Auto 8.1 % (2-11); Neutrophils Absolute Auto 9.5 x10*3/uL (2.0-8.3); Neutrophils Percent Auto 71.4 % (45-73); Platelet Count 364 X10*3/uL (160-400); Red Blood Count 5.02 X10*6/uL (4.60-5.80); Red Cell Distribution Width 15.1 % (11.0-16.0); White Blood Count 13.2 X10*3/uL (4.8-10.8)
--- NOTE | 2024-07-05 10:54 | HO.ADDICTCON ---
History of Present Illness Date of Service: 07/05/2024 Chief Complaint: Depression Reason for Consult: methadone dose titration Sources of Information: patient interviewed and chart reviewed HPI Narrative: Patient is a 28 year old male admitted to unit following opioid overdose, which patient reported was a suicide attempt. While in ED he was initiated on methadone to address withdrawal sx. Patient seen in group room on unit, he is awake, mostly alert and engaged in interview. He reports long history of OUD, with numerous overdoses. He reports that prior to overdose, he was using approx 1/2 pack of fentanyl daily. Reporting 1/2 pint of liquor about 2x/week He reports numerous admissions at various levels of care Previously prescribed methadone via [facility] [email or web address]. It has been several months to a year since he was last engaged with [facility]. He inquires when dose will be increased further (50mg today) Reports feeling good during the day, but having difficulty sleeping Of note, patient appeared slightly sedated during interview, and acknowledged that eyelids were heavy--feels it is due to lack of sleep and not medication Labs reviewed Past Psychiatric History: Unknown Review of Systems Constitutional: Reports as per HPI and Reports difficulty sleeping Diagnostics Vital Signs (24Hr): Vital Signs - 24 hr 07/04/24 13:40 07/04/24 20:00 07/05/24 09:05 Temperature 98.2 F 99.9 F 99.6 F Pulse Rate 82 92 85 Respiratory Rate 16 16 Blood Pressure 132/72 131/78 146/84 H Pulse Oximetry 97 98 98 Oxygen Delivery Method Room Air Room Air Room Air BMI result Body Mass Index 19.6 Labs 07/05/24 10:31 07/05/24 10:31 Labs: Laboratory Results - last 48 hr 07/03/24 07/05/24 11:31 10:31 WBC 13.2 H RBC 5.02 Hgb 14.0 Hct 43.3 MCV 86.3 MCH 27.9 MCHC 32.3 RDW 15.1 Plt Count 364 MPV 10.0 Immature Gran % (Auto) 0.4 Neut % (Auto) 71.4 Lymph % (Auto) 19.7 L Daw[place] % (Auto) 8.1 Eos % (Auto) 0.2 Baso % (Auto) 0.2 Lymph # (Auto) 2.6 Daw[place] # (Auto) 1.1 Eos # (Auto) 0.0 Baso # (Auto) 0.0 Abs Immat Gran (auto) 0.05 H Absolute Neuts (auto) 9.5 H Absolute Nucleated RBC 0.000 Nucleated RBC % (auto) 0.0 Urine Color Yellow Urine Appearance Clear Urine pH 6.5 Ur Specific [place] 1.025 Urine Protein Trace Urine Glucose (UA) 100 H Urine Ketones Trace Urine Blood Negative Urine Nitrite Negative Ur Leukocyte Esterase Negative Urine Opiates Screen POSITIVE H Ur Buprenorphine Scrn Not Detected Ur Oxycodone Screen Not Detected Urine Methadone Screen Positive H Urine Fentanyl Screen POSITIVE H Ur Barbiturates Screen Not Detected Ur Phencyclidine Scrn Not Detected Ur Amphetamines Screen Not Detected U Benzodiazepines Scrn Not Detected Urine Cocaine Screen POSITIVE H U Marijuana (THC) Screen POSITIVE H Mental Status Exam Mental Status Exam Patient Appearance: Appropriate Level of Consciousness: Appropriate and Sedated Affect Description: Calm Medications Medications Current Medications Acetaminophen (Acetaminophen 325 Mg Tablet) 650 mg PO Q6H PRN PRN Reason: Headache/Pain, Scale 1-10 Al Hydroxide/Mg Hydroxide (Magnesium Hydrox/Alum Hydrox 30 Ml Oral.Susp) 30 ml PO Q6H PRN PRN Reason: Heartburn/Nausea Fluoxetine HCl (Fluoxetine Hcl Oral Solution 20 Mg/5 Ml Solution) 10 mg PO DAILY [facility] Last Admin: 07/05/24 09:32 Dose: 10 mg Hydroxyzine HCl (Hydroxyzine Hcl 25 Mg Tablet) 25 mg PO Q6H PRN PRN Reason: mild anxiety Magnesium Hydroxide (Milk Of Magnesia 30 Ml Oral.Susp) 30 ml PO DAILY PRN PRN Reason: Constipation Methadone HCl (Methadone Hcl 20 Mg/2 Ml Oral.Conc) 50 mg PO DAILY@0800 [facility] Last Admin: 07/05/24 07:47 Dose: 50 mg Nicotine (Nicotine 21 Mg Patch.Td24) 21 mg TRANSDERMA DAILY PRN PRN Reason: smoking cessation Last Admin: 07/05/24 09:29 Dose: 21 mg Nicotine Polacrilex (Nicotine Polacrilex 2 Mg Gum) 2 mg BUCCAL QID PRN PRN Reason: Nicotine Cravings Last Admin: 07/04/24 14:48 Dose: 2 mg Nicotine Polacrilex (Nicotine Polacrilex 2 Mg Gum) 4 mg BUCCAL Q2H PRN PRN Reason: Nicotine Cravings Last Admin: 07/05/24 09:29 Dose: 4 mg Olanzapine (Olanzapine 5 Mg Tablet) 5 mg PO TID PRN PRN Reason: agitation Last Admin: 07/04/24 19:26 Dose: 5 mg Trazodone HCl (Trazodone Hcl 50 Mg Tablet) 50 mg PO BEDTIME MRX1 PRN PRN Reason: Insomnia Allergies Allergies Allergy/AdvReac Type Severity Reaction Status Date / Time No Known Allergies Allergy Verified 07/03/24 09:07 [No Known Allergies*] Assessment & Plan Assessment & Plan (1) Opioid use disorder, severe, dependence: Status: Acute Code(s): F11.20 - Opioid dependence, uncomplicated Assessment and Plan: continue methadone at current dose Total time managing care of this patient today ____ minutes. PMFSH Past Medical History Medical History (Updated 07/05/24 @ 10:55 by Brenda Grider CNP) Schizophrenia Polysubstance abuse Social History Social History Household Members: None Housing: Homeless Do you presently have visiting nurse or other home services: No Unable to assess alcohol history related to: Refusing to respond Alcohol intake: current Alcohol intake frequency: does not drink Patient Tobacco Use Status: Current everyday Tobacco user Tobacco use type: Cigarette Cigarettes Per Day: 20 Smoked in Last 30 Days: Yes e-Cigarette/Vaping Use: Never Used Patient Interested in Nicotine Replacement: Yes Patient Given Instructions on How to Stop Smoking: No Second Hand Smoke Exposure: Yes Use of substances other than those prescribed or required for medical reasons: Yes Substance Use Type: Crack/Cocaine, Heroin, IV Drugs, Marijuana, Opiates and Painkillers Substance Use Frequency: Chronic Longstanding Last Used Substance: Just Prior to Admission Last Used Substance Other:: heroin Currently Displaying Signs/Symptoms of Drug Intoxication Withdrawal: No Any prior treatment program specific to substance use: Yes Have you been hit, kicked, punched, or otherwise hurt by someone within the past year? If so, by whom?: No Do you feel safe in your current relationship?: Yes Is there a partner from a previous relationship who is making you feel unsafe now?: No Are you made to feel afraid or neglected: No Advance Directives: No Advance Directives Information Provided: Yes Do you have thoughts of harming others: None Do you have a plan to hurt others: No Plan Recently lost weight without trying: No Nutrition Risks: No Nutritional Risk Poor oral hygiene: Yes
[2024-07-05 10:59] LABS: Estimated Average Glucose 114 mg/dL; Hemoglobin A1C 138.3179 umol/L; Hemoglobin A1c % 5.6 % (<6.0)
[2024-07-05 11:27] LABS: TSH reflex Free T4 0.93 uIU/mL (0.32-4.0)
[2024-07-05 13:12] LABS: Alkaline Phosphatase 70 U/L (39-117)
[2024-07-05 13:35] LABS: Alanine Aminotransferase 34 U/L (0-40); Albumin Level 4.2 g/dL (3.5-5.0); Aspartate Amino Transferase 26 U/L (5-37); Bilirubin Total 0.5 mg/dL (0.0-1.0); Blood Urea Nitrogen 12 mg/dL (9-16); Calcium 9.4 mg/dL (8.4-10.2); Carbon Dioxide 21 mmol/L (22-29); Chloride 109 mmol/L (96-108); Cholesterol 170 mg/dL (<200); Creatinine Clr Calc Pharmacy 101.8; Estimated Glomerular Filt Rate > 60; Glucose Fasting 103 mg/dL (60-99); HDL Cholesterol 47 mg/dL (>40); LDL Cholesterol Calculated 87 mg/dL (<100); Potassium 4.5 mmol/L (3.3-5.1); Sodium 140 mmol/L (135-145); Total Protein 7.6 g/dL (6.5-8.0); Triglycerides 182 mg/dL (<150)
[2024-07-05 14:49] LABS: Anion Gap 15 (12-20)
[2024-07-05 20:00] VITALS: BP 118/62; PULSE 98; RESP 16; TEMP 36.2; O2SAT 97
[2024-07-05] MEDS: traZODone HCL 50 MG TABLET PO (21:08)
[2024-07-05] MEDS: hydrOXYzine HCL 25 MG TABLET PO (21:08)
[2024-07-06] MEDS: methADONE HCl 20 MG/2 ML ORAL.CONC 50 MG PO (07:30)
[2024-07-06 07:56] VITALS: BP 131/74; PULSE 74; TEMP 37.1; O2SAT 99
[2024-07-06] MEDS: FLUoxetine HCl Oral Solution 20 MG/5 ML SOLUTION 10 MG PO (08:41)
--- NOTE | 2024-07-06 08:48 | P.PNPSI_ITS ---
Subjective Subjective Date of Service: 07/06/24 Reason For Visit: Depression Subjective Notes: Conditional Voluntary Healthcare Proxy: No Guardianship: No Medical Problems Affecting Mental Status: No Interim History: Patient was seen and discussed in rounds today. Records and plans were reviewed. He is doing well on the unit but has been somewhat intrusive, making inappropriate comments and has a hard time with limits. Provocative at times. He states that he did not receive his nighttime Seroquel which I ordered. No SI. No signs of withdrawal. The methadone has been very helpful. No other changes were made today Review of Systems Review of Systems Yes all other systems are reviewed and are negative Mental Status Exam Mental Status Exam Narrative: In today's visit he is alert, oriented and pleasant. Normal speech. Good eye contact. Affect is appropriate and varied. No acute signs of psychosis. No suicidal ideations. Cognitively is grossly intact. Moves all limbs. No gait abnormalities. Judgment is intact Diagnostics Vital Signs (24Hr): Vital Signs - 24 hr 07/05/24 09:05 07/05/24 20:00 07/06/24 07:56 Temperature 99.6 F 97.2 F 98.8 F Pulse Rate 85 98 74 Respiratory Rate 16 Blood Pressure 146/84 H 118/62 131/74 Pulse Oximetry 98 97 99 Oxygen Delivery Method Room Air Room Air Room Air BMI result Body Mass Index 19.6 Labs 07/05/24 10:31 07/05/24 10:31 Labs: Laboratory Results - last 48 hr 07/05/24 10:31 WBC 13.2 H RBC 5.02 Hgb 14.0 Hct 43.3 MCV 86.3 MCH 27.9 MCHC 32.3 RDW 15.1 Plt Count 364 MPV 10.0 Immature Gran % (Auto) 0.4 Neut % (Auto) 71.4 Lymph % (Auto) 19.7 L [place] % (Auto) 8.1 Eos % (Auto) 0.2 Baso % (Auto) 0.2 Lymph # (Auto) 2.6 [place] # (Auto) 1.1 Eos # (Auto) 0.0 Baso # (Auto) 0.0 Abs Immat Gran (auto) 0.05 H Absolute Neuts (auto) 9.5 H Absolute Nucleated RBC 0.000 Nucleated RBC % (auto) 0.0 Sodium 140 Potassium 4.5 Chloride 109 H Carbon Dioxide 21 L Anion Gap 15 BUN 12 Creatinine 0.81 Estim Creat Clear Calc 101.8 Estimated GFR > 60 Fasting Glucose 103 H Estimat Average Glucose 114 Hemoglobin A1c % 5.6 Calcium 9.4 Total Bilirubin 0.5 AST 26 ALT 34 Alkaline Phosphatase 70 Total Protein 7.6 Albumin 4.2 Triglycerides 182 H Cholesterol 170 LDL Cholesterol, Calc 87 HDL Cholesterol 47 TSH 0.93 Medications Medications Current Medications Acetaminophen (Acetaminophen 325 Mg Tablet) 650 mg PO Q6H PRN PRN Reason: Headache/Pain, Scale 1-10 Al Hydroxide/Mg Hydroxide (Magnesium Hydrox/Alum Hydrox 30 Ml Oral.Susp) 30 ml PO Q6H PRN PRN Reason: Heartburn/Nausea Fluoxetine HCl (Fluoxetine Hcl Oral Solution 20 Mg/5 Ml Solution) 10 mg PO DAILY [facility] Last Admin: 07/06/24 08:41 Dose: 10 mg Hydroxyzine HCl (Hydroxyzine Hcl 25 Mg Tablet) 25 mg PO Q6H PRN PRN Reason: mild anxiety Last Admin: 07/05/24 21:08 Dose: 25 mg Magnesium Hydroxide (Milk Of Magnesia 30 Ml Oral.Susp) 30 ml PO DAILY PRN PRN Reason: Constipation Methadone HCl (Methadone Hcl 20 Mg/2 Ml Oral.Conc) 50 mg PO DAILY@0800 [facility] Last Admin: 07/06/24 07:30 Dose: 50 mg Nicotine (Nicotine 21 Mg Patch.Td24) 21 mg TRANSDERMA DAILY PRN PRN Reason: smoking cessation Last Admin: 07/05/24 09:29 Dose: 21 mg Nicotine Polacrilex (Nicotine Polacrilex 2 Mg Gum) 2 mg BUCCAL QID PRN PRN Reason: Nicotine Cravings Last Admin: 07/04/24 14:48 Dose: 2 mg Nicotine Polacrilex (Nicotine Polacrilex 2 Mg Gum) 4 mg BUCCAL Q2H PRN PRN Reason: Nicotine Cravings Last Admin: 07/05/24 20:13 Dose: 4 mg Olanzapine (Olanzapine 5 Mg Tablet) 5 mg PO TID PRN PRN Reason: agitation Last Admin: 07/04/24 19:26 Dose: 5 mg Quetiapine Fumarate (Quetiapine Fumarate 100 Mg Tablet) 100 mg PO BEDTIME [facility] Trazodone HCl (Trazodone Hcl 50 Mg Tablet) 50 mg PO BEDTIME MRX1 PRN PRN Reason: Insomnia Last Admin: 07/05/24 21:08 Dose: 50 mg Allergies Allergies Allergy/AdvReac Type Severity Reaction Status Date / Time No Known Allergies Allergy Verified 07/03/24 09:07 [No Known Allergies*] Assessment & Plan Assessment & Plan (1) Opioid use disorder, severe, dependence: Status: Acute Code(s): F11.20 - Opioid dependence, uncomplicated Assessment and Plan: * continue methadone at current dose Plan 07/06: Continue current plans and regimen Patient educated on: medication risk/benefits Reason for continued inpatient stay Substantial Risk for: harm to self and med/psych decompensation Time Spent With Patient Time: Total time managing care of this patient today ____ minutes.
[2024-07-06] MEDS: Nicotine Polacrilex 2 MG GUM 4 MG BUCCAL ×2 (10:01→21:07)
[2024-07-06] MEDS: Nicotine 21 MG PATCH.TD24 TRANSDERMA (10:02)
[2024-07-06] MEDS: QUEtiapine Fumarate 100 MG TABLET PO (21:06)
[2024-07-06 21:50] VITALS: BP 127/70; PULSE 103; TEMP 37.2; O2SAT 98
[2024-07-07] MEDS: methADONE HCl 20 MG/2 ML ORAL.CONC 50 MG PO (08:07)
[2024-07-07 08:49] VITALS: BP 129/82; PULSE 74; TEMP 36.9; O2SAT 99
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
[2024-07-07] MEDS: Nicotine Polacrilex 2 MG GUM 4 MG BUCCAL ×4 (12:13→20:37)
[2024-07-07] MEDS: Nicotine 21 MG PATCH.TD24 TRANSDERMA (16:13)
[2024-07-07 20:00] VITALS: BP 125/74; PULSE 86; RESP 18; TEMP 37.3; O2SAT 98
[2024-07-07] MEDS: traZODone HCL 50 MG TABLET PO (20:34)
[2024-07-07] MEDS: QUEtiapine Fumarate 100 MG TABLET PO (20:34)
[2024-07-08] MEDS: methADONE HCl 20 MG/2 ML ORAL.CONC 50 MG PO (07:54)
[2024-07-08 08:29] VITALS: BP 120/62; PULSE 68; RESP 16; TEMP 36.9; O2SAT 98
[2024-07-08] MEDS: Nicotine Polacrilex 2 MG GUM 4 MG BUCCAL ×3 (08:37→15:29)
--- NOTE | 2024-07-08 15:14 | P.PNPSI_ITS ---
Subjective Subjective Date of Service: 07/08/24 Reason For Visit: Depression Subjective Notes: Section 12B Healthcare Proxy: No Guardianship: No Medical Problems Affecting Mental Status: No Interim History: Met with pt and Marilu Headley LCSW. Pt reviewed precipitants to admission. I don't want to . . Reports feeling improved throughout the weekend, attending groups, talking with peers and team, sleeping is improved and medicine regime is re-established. Pt hopes to discharge on , when his 12B is completed. He is not interested in a program at this time, but would like assignment of out patient providers and to continue Methadone with BECKY Patton. Reports he is homeless-stays with his cousin at times and needs to file for assistance and income source. Has [address] or a warrant will be issued, I need to figure this out. Reports Olanzapine, Seroquel are dose appropriate. He would like a Methadone increase (we will refer that question to his OP team as he is presenting sedate at times on the unit.) He also would like to continue Nicotine replacement. Medication Compliance: Yes Side effects from medications: Yes (some sedation, ?methadone) Attending Groups: Intermittent Review of Systems Acute medical concerns: No Medical Review of Systems: unchanged Review of Systems Review of Systems Denies Mental Status Exam Mental Status Exam Patient Appearance: Fatigued and Appropriate Patient Orientation: Person, Place, Time and Situation Level of Consciousness: Alert Patient Behavior: Talkative and Good Eye Contact Mood Description: Constricted Affect Description: Constricted Patient Cognition Impaired: No Ability to Follow Directions: Good Speech Pattern: Spontaneous Speech Memory Description: Episodic Impaired Hallucinations: None Delusions: Not Present Thought Process: Distracted Thought Content: positive for [place], positive for Tangential and positive for Suicidal Ideation (denies) Depressive Symptoms: Thoughts of /Suicide (denies) Judgement: Good Diagnostics Vital Signs (24Hr): Vital Signs - 24 hr 07/07/24 20:00 07/08/24 08:29 Temperature 99.2 F 98.4 F Pulse Rate 86 68 Respiratory Rate 18 16 Blood Pressure 125/74 120/62 Pulse Oximetry 98 98 Oxygen Delivery Method Room Air Room Air BMI result Body Mass Index 19.6 Labs 07/05/24 10:31 07/05/24 10:31 Medications Medications Current Medications Acetaminophen (Acetaminophen 325 Mg Tablet) 650 mg PO Q6H PRN PRN Reason: Headache/Pain, Scale 1-10 Al Hydroxide/Mg Hydroxide (Magnesium Hydrox/Alum Hydrox 30 Ml Oral.Susp) 30 ml PO Q6H PRN PRN Reason: Heartburn/Nausea Fluoxetine HCl (Fluoxetine Hcl Oral Solution 20 Mg/5 Ml Solution) 10 mg PO DAILY [facility] Last Admin: 07/08/24 07:57 Dose: Not Given Hydroxyzine HCl (Hydroxyzine Hcl 25 Mg Tablet) 25 mg PO Q6H PRN PRN Reason: mild anxiety Last Admin: 07/05/24 21:08 Dose: 25 mg Magnesium Hydroxide (Milk Of Magnesia 30 Ml Oral.Susp) 30 ml PO DAILY PRN PRN Reason: Constipation Methadone HCl (Methadone Hcl 20 Mg/2 Ml Oral.Conc) 50 mg PO DAILY@0800 [facility] Last Admin: 07/08/24 07:54 Dose: 50 mg Nicotine (Nicotine 21 Mg Patch.Td24) 21 mg TRANSDERMA DAILY PRN PRN Reason: smoking cessation Last Admin: 07/07/24 16:13 Dose: 21 mg Nicotine Polacrilex (Nicotine Polacrilex 2 Mg Gum) 4 mg BUCCAL Q2H PRN PRN Reason: Nicotine Cravings Last Admin: 07/08/24 12:44 Dose: 4 mg Olanzapine (Olanzapine 5 Mg Tablet) 5 mg PO TID PRN PRN Reason: agitation Last Admin: 07/04/24 19:26 Dose: 5 mg Olanzapine (Olanzapine 5 Mg Tablet) 5 mg PO DAILY [facility] Last Admin: 07/08/24 07:57 Dose: Not Given Quetiapine Fumarate (Quetiapine Fumarate 100 Mg Tablet) 100 mg PO BEDTIME [facility] Last Admin: 07/07/24 20:34 Dose: 100 mg Trazodone HCl (Trazodone Hcl 50 Mg Tablet) 50 mg PO BEDTIME MRX1 PRN PRN Reason: Insomnia Last Admin: 07/07/24 20:34 Dose: 50 mg Allergies Allergies Allergy/AdvReac Type Severity Reaction Status Date / Time No Known Allergies Allergy Verified 07/03/24 09:07 [No Known Allergies*] Assessment & Plan Assessment & Plan (1) Opioid use disorder, severe, dependence: Status: Acute Code(s): F11.20 - Opioid dependence, uncomplicated Assessment and Plan: * continue methadone at current dose (2) Schizoaffective disorder: Status: Acute Code(s): F25.9 - Schizoaffective disorder, unspecified Plan 07/06: Continue current plans and regimen 07/07 pt says he's d doing pretty good... Better which he can tell because he is not so depressed.. Patient had refused Prozac thinking it was more of a p.r.n. but after discussion, realizing it could help prevent depression he would said he would start taking it again. Patient endorses mild AH of murmurs and says he has schizoaffective disorder. He asks for his Zyprexa to be restarted though he is not sure what dose; wants to daytime. Instrument Setter asked about Seroquel which he thinks is for sleep and says trazodone does not work. Instrument Setter agreed to add Zyprexa. 07/08: Continue regime/plan. Plan: Start Zyprexa 5 mg daily Continue Prozac 10 mg Continue Seroquel 100 mg q.h.s. Reason for continued inpatient stay Substantial Risk for: rapid decompensation Time Spent With Patient Time: Total time managing care of this patient today ____ minutes.
--- NOTE | 2024-07-08 16:15 | MHC.RECOVRN ---
Met with pt in [id number] to follow up and provide support.? Pt sitting in common area napping. Easily awoken to voice. Pt reports fatigue is not due to methadone but due to the fact that he has just started sleeping better and was not for some time. Pt denies any W/D sx and none observed. Pt feels current dose of methadone is adequate at this time. Pt denies other concerns at this time.? T/w available as needed.
[2024-07-08 20:00] VITALS: BP 112/79; PULSE 90; RESP 16; TEMP 37.1; O2SAT 96
[2024-07-08] MEDS: traZODone HCL 50 MG TABLET PO ×2 (20:30→23:07)
[2024-07-08] MEDS: QUEtiapine Fumarate 100 MG TABLET PO (20:30)
[2024-07-08] MEDS: OLANZapine 5 MG TABLET PO (20:32)
[2024-07-08] MEDS: Acetaminophen 325 MG TABLET 650 MG PO (23:07)
--- NOTE | 2024-07-09 00:50 | PC.NURSE ---
Pt was drowsy after taken his HS meds and was redirected to go his room but he refused. He later hit his head slightly on the wall. No swollen/injury/ bleeding/loss of consciousness observed. He states I am fine, I just hit my head a bit on the wall .
[2024-07-09] MEDS: methADONE HCl 20 MG/2 ML ORAL.CONC 50 MG PO (07:39)
--- NOTE | 2024-07-09 10:01 | P.PNPSI_ITS ---
Subjective Subjective Date of Service: 07/09/24 Reason For Visit: Depression Subjective Notes: Conditional Voluntary and Section 12B Healthcare Proxy: No Guardianship: No Medical Problems Affecting Mental Status: No Interim History: Pt signed a CV today. He would like to remain in pt until Sunday which was discussed Meds were reviewed. Pt would like to remain on meds currently ordered, finding them helpful. URI sx present- SARS/Flu/RSV cultures ordered. Medication Compliance: Yes Side effects from medications: Yes (sedation reported at times) Attending Groups: Intermittent Review of Systems URI sx Review of Systems Review of Systems URI sx Mental Status Exam Mental Status Exam Patient Appearance: Fatigued and Appropriate Patient Orientation: Person, Place, Time and Situation Level of Consciousness: Alert Patient Behavior: Talkative and Good Eye Contact Mood Description: Constricted Affect Description: Constricted Patient Cognition Impaired: No Ability to Follow Directions: Good Speech Pattern: Spontaneous Speech Memory Description: Episodic Impaired Hallucinations: None Delusions: Not Present Thought Process: Distracted Thought Content: positive for [place], positive for Tangential and positive for Suicidal Ideation (denies) Depressive Symptoms: Thoughts of /Suicide (denies) Judgement: Good Diagnostics Vital Signs (24Hr): Vital Signs - 24 hr 07/08/24 20:00 Temperature 98.7 F Pulse Rate 90 Respiratory Rate 16 Blood Pressure 112/79 Pulse Oximetry 96 Oxygen Delivery Method Room Air BMI result Body Mass Index 19.6 Labs 07/05/24 10:31 07/05/24 10:31 Medications Medications Current Medications Acetaminophen (Acetaminophen 325 Mg Tablet) 650 mg PO Q6H PRN PRN Reason: Headache/Pain, Scale 1-10 Last Admin: 07/08/24 23:07 Dose: 650 mg Al Hydroxide/Mg Hydroxide (Magnesium Hydrox/Alum Hydrox 30 Ml Oral.Susp) 30 ml PO Q6H PRN PRN Reason: Heartburn/Nausea Fluoxetine HCl (Fluoxetine Hcl Oral Solution 20 Mg/5 Ml Solution) 10 mg PO DAILY [facility] Last Admin: 07/09/24 08:13 Dose: Not Given Hydroxyzine HCl (Hydroxyzine Hcl 25 Mg Tablet) 25 mg PO Q6H PRN PRN Reason: mild anxiety Last Admin: 07/05/24 21:08 Dose: 25 mg Magnesium Hydroxide (Milk Of Magnesia 30 Ml Oral.Susp) 30 ml PO DAILY PRN PRN Reason: Constipation Methadone HCl (Methadone Hcl 20 Mg/2 Ml Oral.Conc) 50 mg PO DAILY@0800 [facility] Last Admin: 07/09/24 07:39 Dose: 50 mg Nicotine (Nicotine 21 Mg Patch.Td24) 21 mg TRANSDERMA DAILY PRN PRN Reason: smoking cessation Last Admin: 07/07/24 16:13 Dose: 21 mg Nicotine Polacrilex (Nicotine Polacrilex 2 Mg Gum) 4 mg BUCCAL Q2H PRN PRN Reason: Nicotine Cravings Last Admin: 07/08/24 15:29 Dose: 4 mg Olanzapine (Olanzapine 5 Mg Tablet) 5 mg PO TID PRN PRN Reason: agitation Last Admin: 07/08/24 20:32 Dose: 5 mg Olanzapine (Olanzapine 5 Mg Tablet) 5 mg PO DAILY [facility] Last Admin: 07/09/24 08:13 Dose: Not Given Quetiapine Fumarate (Quetiapine Fumarate 100 Mg Tablet) 100 mg PO BEDTIME [facility] Last Admin: 07/08/24 20:30 Dose: 100 mg Trazodone HCl (Trazodone Hcl 50 Mg Tablet) 50 mg PO BEDTIME MRX1 PRN PRN Reason: Insomnia Last Admin: 07/08/24 23:07 Dose: 50 mg Allergies Allergies Allergy/AdvReac Type Severity Reaction Status Date / Time No Known Allergies Allergy Verified 07/03/24 09:07 [No Known Allergies*] Assessment & Plan Assessment & Plan (1) Opioid use disorder, severe, dependence: Status: Acute Code(s): F11.20 - Opioid dependence, uncomplicated Assessment and Plan: * continue methadone at current dose (2) Schizoaffective disorder: Status: Acute Code(s): F25.9 - Schizoaffective disorder, unspecified Plan 07/06: Continue current plans and regimen 07/07 pt says he's d doing pretty good... Better which he can tell because he is not so depressed.. Patient had refused Prozac thinking it was more of a p.r.n. but after discussion, realizing it could help prevent depression he would said he would start taking it again. Patient endorses mild AH of murmurs and says he has schizoaffective disorder. He asks for his Zyprexa to be restarted though he is not sure what dose; wants to daytime. Certified Orthotist Practice Manager asked about Seroquel which he thinks is for sleep and says trazodone does not work. Certified Orthotist Practice Manager agreed to add Zyprexa. 07/08: Continue regime/plan. 07/09: SARS/Flu/Covid testing. Pt has signed a CV Continue to monitor. Plan: Start Zyprexa 5 mg daily Continue Prozac 10 mg Continue Seroquel 100 mg q.h.s. Reason for continued inpatient stay Substantial Risk for: rapid decompensation Time Spent With Patient Time: Total time managing care of this patient today ____ minutes.
[2024-07-09] MEDS: OLANZapine 5 MG TABLET PO (16:28)
[2024-07-09] MEDS: Nicotine Polacrilex 2 MG GUM 4 MG BUCCAL ×2 (16:32→21:33)
[2024-07-09 17:27] LABS: Influenza A PCR NEGATIVE (Negative); Influenza B PCR NEGATIVE (Negative); Resp Syncy Virus RNA Qual PCR NEGATIVE (Negative); SARS COV2 PCR INHOUSE NEGATIVE (Negative)
[2024-07-09 20:00] VITALS: BP 111/72; PULSE 85; TEMP 36.9; O2SAT 97
[2024-07-09] MEDS: QUEtiapine Fumarate 100 MG TABLET PO (21:32)
[2024-07-09] MEDS: traZODone HCL 50 MG TABLET PO (22:29)
--- NOTE | 2024-07-10 | ECG_ITS ---
Test Reason : CP Blood Pressure : */* mmHG Vent. Rate : 105 BPM Atrial Rate : 105 BPM P-R Int : 122 ms QRS Dur : 84 ms QT Int : 330 ms P-R-T Axes : 70 60 21 degrees QTcB Int : 436 ms Sinus tachycardia Otherwise normal ECG When compared with ECG of 04-Jul-2024 08:57, Vent. rate has increased by 39 bpm T wave amplitude has decreased in Anterolateral leads Referred By: Nicky Gonzalez Electronically Signed By: SHANTA OWENS
[2024-07-10 07:00] VITALS: BMI 20.6
[2024-07-10 08:00] VITALS: BP 125/65; PULSE 107; RESP 16; TEMP 39.4; O2SAT 95
[2024-07-10] MEDS: methADONE HCl 20 MG/2 ML ORAL.CONC 50 MG PO (08:03)
[2024-07-10 08:35] LABS: Influenza A PCR NEGATIVE (Negative); Influenza B PCR NEGATIVE (Negative); Resp Syncy Virus RNA Qual PCR NEGATIVE (Negative); SARS COV2 PCR INHOUSE NEGATIVE (Negative)
[2024-07-10 10:45] LABS: IDNOW Serial# 58CA691E; Strep A Nucleic Acid Positive (Negative)
[2024-07-10 11:17] LABS: MANUAL DIFF FLAG NO
[2024-07-10 11:31] LABS: Ammonia 50 umol/L (13-55)
[2024-07-10 11:33] LABS: Basophils Percent Auto 0.2 % (0-2); Eosinophils Percent Auto 0.1 % (0-4); Hematocrit 39.6 % (42.0-52.0); Hemoglobin 12.8 g/dl (14.0-18.0); Imm Gran Abs Auto 0.08 X10*3/uL (0.00-0.03); Imm Gran Pct Auto 0.6 % (0.0-0.4); Lymphocytes Absolute Auto 1.8 X10*3/uL (1.2-4.9); Lymphocytes Percent Auto 13.3 % (20-40); Mean Corpuscular HGB Conc 32.3 g/dl (31.0-36.0); Mean Corpuscular Hemoglobin 28.2 pg (27.0-33.0); Mean Corpuscular Volume 87.2 fL (80.0-98.0); Monocytes Absolute Auto 1.3 X10*3/uL (0.1-1.2); Monocytes Percent Auto 9.7 % (2-11); Neutrophils Absolute Auto 10.5 x10*3/uL (2.0-8.3); Neutrophils Percent Auto 76.1 % (45-73); Platelet Count 336 X10*3/uL (160-400); Red Blood Count 4.54 X10*6/uL (4.60-5.80); Red Cell Distribution Width 14.8 % (11.0-16.0); White Blood Count 13.8 X10*3/uL (4.8-10.8)
[2024-07-10] MEDS: Azithromycin 250 MG TABLET 500 MG PO (11:36)
[2024-07-10 11:38] LABS: Alanine Aminotransferase 30 U/L (0-40); Alkaline Phosphatase 69 U/L (39-117); Anion Gap 12 (12-20); Aspartate Amino Transferase 29 U/L (5-37); Bilirubin Total 0.7 mg/dL (0.0-1.0); Blood Urea Nitrogen 12 mg/dL (9-16); Calcium 9.4 mg/dL (8.4-10.2); Carbon Dioxide 28 mmol/L (22-29); Chloride 101 mmol/L (96-108); Creatinine Clr Calc Pharmacy 115.5; Estimated Glomerular Filt Rate > 60; Glucose Random 103 mg/dL (60-115); Potassium 4.4 mmol/L (3.3-5.1); Sodium 137 mmol/L (135-145); Total Protein 7.6 g/dL (6.5-8.0)
[2024-07-10 11:49] LABS: Amphetamine Screen Urine Not Detected (Not Detect); Barbiturates, Urine Not Detected (Not Detect); Benzodiazepines Screen Urine Not Detected (Not Detect); Buprenorphine Scr Not Detected (Not Detect); Cannabinoid Screen Urine Not Detected (Not Detect); Cocaine Screen Urine Not Detected (Not Detect); Fentanyl, urine POSITIVE (Not Detect); Methadone Screen, Urine Positive (Not Detect); Opiate Screen Urine Not Detected (Not Detect); Oxycodone Screen Urine Not Detected (Not Detect); Phencyclidine Screen Urine Not Detected (Not Detect)
[2024-07-10 20:00] VITALS: BP 131/79; PULSE 101; TEMP 37.2; O2SAT 96
--- NOTE | 2024-07-10 21:22 | HO.PSYCHPN ---
Subjective Subjective Date of Service: 07/10/24 Reason For Visit: Depression Subjective Notes: Conditional Voluntary Healthcare Proxy: No Guardianship: No Medical Problems Affecting Mental Status: No Interim History: Team report pt making inappropriate sexual comments to peers. URI sx exacerbated with negative SARS/RSV/Flu but with 103 temp, to 100.9 with Tylenol. Strep Culture positive. Azithromycin initiated. Pt very sedate in the a.m. improved in the late afternoon/evening. No further inappropriate comments reported after antibiotic initiated and temp managed. Denies SI/HI/AH/VH. Continues to ask to discharge on 07/11. Medication Compliance: Intermittent Side effects from medications: No Attending Groups: Intermittent Review of Systems Strep + Medical Review of Systems: unchanged Review of Systems Review of Systems Strep + Temp 103 -100.9 Mental Status Exam Mental Status Exam Patient Appearance: Fatigued Patient Orientation: Person, Place, Time and Situation Level of Consciousness: Drowsy, Sedated and Alert Patient Behavior: Talkative, Sedated and Good Eye Contact Mood Description: Withdrawn and Constricted Affect Description: Withdrawn and Constricted Patient Cognition Impaired: No Ability to Follow Directions: Fair Speech Pattern: Impoverished and Spontaneous Speech Memory Description: Episodic Impaired Hallucinations: None Delusions: Not Present Thought Process: Distracted Thought Content: positive for [place], positive for Circum[place], positive for Tangential and positive for Suicidal Ideation (denies) Depressive Symptoms: Thoughts of /Suicide (denies) Judgement: Good Diagnostics Vital Signs (24Hr): Vital Signs - 24 hr 07/10/24 08:00 Temperature 103 F H Pulse Rate 107 H Respiratory Rate 16 Blood Pressure 125/65 Pulse Oximetry 95 Oxygen Delivery Method Room Air BMI result Body Mass Index 20.6 Labs 07/10/24 11:10 07/10/24 11:10 Labs: Laboratory Results - last 48 hr 07/09/24 07/10/24 07/10/24 16:30 07:45 09:40 WBC RBC Hgb Hct MCV MCH MCHC RDW Plt Count MPV Immature Gran % (Auto) Neut % (Auto) Lymph % (Auto) [place] % (Auto) Eos % (Auto) Baso % (Auto) Lymph # (Auto) [place] # (Auto) Eos # (Auto) Baso # (Auto) Abs Immat Gran (auto) Absolute Neuts (auto) Absolute Nucleated RBC Nucleated RBC % (auto) Sodium Potassium Chloride Carbon Dioxide Anion Gap BUN Creatinine Estim Creat Clear Calc Estimated GFR Random Glucose Calcium Total Bilirubin AST ALT Alkaline Phosphatase Ammonia Total Protein Albumin Hold Yellow Top Urine Opiates Screen Ur Buprenorphine Scrn Ur Oxycodone Screen Urine Methadone Screen Urine Fentanyl Screen Ur Barbiturates Screen Ur Phencyclidine Scrn Ur Amphetamines Screen U Benzodiazepines Scrn Urine Cocaine Screen U Marijuana (THC) Screen Influenza Type A (PCR) NEGATIVE NEGATIVE Influenza Type B (PCR) NEGATIVE NEGATIVE RSV RNA Qual (PCR) NEGATIVE NEGATIVE SARS-CoV-2 RNA (RT-PCR) NEGATIVE NEGATIVE S. pyogenes GrpA SUSAN Positive A 07/10/24 07/10/24 11:10 11:15 WBC 13.8 H RBC 4.54 L Hgb 12.8 L Hct 39.6 L MCV 87.2 MCH 28.2 MCHC 32.3 RDW 14.8 Plt Count 336 MPV 10.0 Immature Gran % (Auto) 0.6 H Neut % (Auto) 76.1 H Lymph % (Auto) 13.3 L [place] % (Auto) 9.7 Eos % (Auto) 0.1 Baso % (Auto) 0.2 Lymph # (Auto) 1.8 [place] # (Auto) 1.3 H Eos # (Auto) 0.0 Baso # (Auto) 0.0 Abs Immat Gran (auto) 0.08 H Absolute Neuts (auto) 10.5 H Absolute Nucleated RBC 0.000 Nucleated RBC % (auto) 0.0 Sodium 137 Potassium 4.4 Chloride 101 Carbon Dioxide 28 Anion Gap 12 BUN 12 Creatinine 0.75 Estim Creat Clear Calc 115.5 Estimated GFR > 60 Random Glucose 103 Calcium 9.4 Total Bilirubin 0.7 AST 29 ALT 30 Alkaline Phosphatase 69 Ammonia 50 Total Protein 7.6 Albumin 4.0 Hold Yellow Top See Note Urine Opiates Screen Not Detected Ur Buprenorphine Scrn Not Detected Ur Oxycodone Screen Not Detected Urine Methadone Screen Positive H Urine Fentanyl Screen POSITIVE H Ur Barbiturates Screen Not Detected Ur Phencyclidine Scrn Not Detected Ur Amphetamines Screen Not Detected U Benzodiazepines Scrn Not Detected Urine Cocaine Screen Not Detected U Marijuana (THC) Screen Not Detected Influenza Type A (PCR) Influenza Type B (PCR) RSV RNA Qual (PCR) SARS-CoV-2 RNA (RT-PCR) S. pyogenes GrpA SUSAN Imaging Radiology Impressions: ITS Impressions Chest X-Ray 07/10/24 11:15 IMPRESSION: Very subtle lingular opacities in the lungs, could represent subtle pneumonia in the appropriate clinical setting. Electronically signed by: Brian Alejandro MD 07/10/2024 11:45 AM EDT RP Medications Medications Current Medications Acetaminophen (Acetaminophen 325 Mg Tablet) 650 mg PO Q6H PRN PRN Reason: Headache/Pain, Scale 1-10 Last Admin: 07/08/24 23:07 Dose: 650 mg Al Hydroxide/Mg Hydroxide (Magnesium Hydrox/Alum Hydrox 30 Ml Oral.Susp) 30 ml PO Q6H PRN PRN Reason: Heartburn/Nausea Azithromycin (Azithromycin 250 Mg Tablet) 250 mg PO Q24H [facility] Stop: 07/15/24 07:00 Fluoxetine HCl (Fluoxetine Hcl 10 Mg Capsule) 10 mg PO DAILY [facility] Last Admin: 07/10/24 09:19 Dose: Not Given Hydroxyzine HCl (Hydroxyzine Hcl 25 Mg Tablet) 25 mg PO Q6H PRN PRN Reason: mild anxiety Last Admin: 07/05/24 21:08 Dose: 25 mg Magnesium Hydroxide (Milk Of Magnesia 30 Ml Oral.Susp) 30 ml PO DAILY PRN PRN Reason: Constipation Methadone HCl (Methadone Hcl 20 Mg/2 Ml Oral.Conc) 50 mg PO DAILY@0800 [facility] Last Admin: 07/10/24 08:03 Dose: 50 mg Nicotine (Nicotine 21 Mg Patch.Td24) 21 mg TRANSDERMA DAILY PRN PRN Reason: smoking cessation Last Admin: 07/07/24 16:13 Dose: 21 mg Nicotine Polacrilex (Nicotine Polacrilex 2 Mg Gum) 4 mg BUCCAL Q2H PRN PRN Reason: Nicotine Cravings Last Admin: 07/09/24 21:33 Dose: 4 mg Olanzapine (Olanzapine 5 Mg Tablet) 5 mg PO TID PRN PRN Reason: agitation Last Admin: 07/08/24 20:32 Dose: 5 mg Olanzapine (Olanzapine 5 Mg Tablet) 5 mg PO BID@0900,1600 [facility] Last Admin: 07/10/24 17:17 Dose: Not Given Quetiapine Fumarate (Quetiapine Fumarate 100 Mg Tablet) 100 mg PO BEDTIME [facility] Last Admin: 07/09/24 21:32 Dose: 100 mg Trazodone HCl (Trazodone Hcl 50 Mg Tablet) 50 mg PO BEDTIME MRX1 PRN PRN Reason: Insomnia Last Admin: 07/09/24 22:29 Dose: 50 mg Allergies Allergies Allergy/AdvReac Type Severity Reaction Status Date / Time No Known Allergies Allergy Verified 07/03/24 09:07 [No Known Allergies*] Assessment & Plan Assessment & Plan (1) Opioid use disorder, severe, dependence: Status: Acute Code(s): F11.20 - Opioid dependence, uncomplicated Assessment and Plan: continue methadone at current dose (2) Schizoaffective disorder: Status: Acute Code(s): F25.9 - Schizoaffective disorder, unspecified Plan 07/06: Continue current plans and regimen 07/07 pt says he's d doing pretty good... Better which he can tell because he is not so depressed.. Patient had refused Prozac thinking it was more of a p.r.n. but after discussion, realizing it could help prevent depression he would said he would start taking it again. Patient endorses mild AH of murmurs and says he has schizoaffective disorder. He asks for his Zyprexa to be restarted though he is not sure what dose; wants to daytime. Branch Operations Specialist asked about Seroquel which he thinks is for sleep and says trazodone does not work. Branch Operations Specialist agreed to add Zyprexa. 07/08: Continue regime/plan. 07/09: SARS/Flu/Covid testing. Pt has signed a CV Continue to monitor. 07/10: Strep +. Azithromycin initiated Temp 103-100.9 Monitor Plan: Start Zyprexa 5 mg daily Continue Prozac 10 mg Continue Seroquel 100 mg q.h.s. Reason for continued inpatient stay Substantial Risk for: med/psych decompensation Time Spent With Patient Time: Total time managing care of this patient today ____ minutes.
[2024-07-10] MEDS: QUEtiapine Fumarate 100 MG TABLET PO (22:03)
[2024-07-10] MEDS: traZODone HCL 50 MG TABLET PO (22:03)
[2024-07-10] MEDS: Nicotine Polacrilex 2 MG GUM 4 MG BUCCAL (22:07)
[2024-07-11] MEDS: methADONE HCl 20 MG/2 ML ORAL.CONC 50 MG PO (07:54)
[2024-07-11 08:32] VITALS: BP 124/77; PULSE 80; RESP 16; TEMP 36.9; O2SAT 99
[2024-07-11] MEDS: Nicotine Polacrilex 2 MG GUM 4 MG BUCCAL (08:37)
[2024-07-11] MEDS: FLUoxetine HCl 10 MG CAPSULE PO (08:37)
[2024-07-11] MEDS: OLANZapine 5 MG TABLET PO (08:37)
[2024-07-11] MEDS: Nicotine 21 MG PATCH.TD24 TRANSDERMA (08:37)
--- NOTE | 2024-07-11 09:42 | HO.PSYCHPN ---
Subjective Subjective Reason For Visit: Depression Diagnostics Vital Signs (24Hr): Vital Signs - 24 hr 07/10/24 20:00 07/11/24 08:32 Temperature 98.9 F 98.4 F Pulse Rate 101 H 80 Respiratory Rate 16 Blood Pressure 131/79 124/77 Pulse Oximetry 96 99 Oxygen Delivery Method Room Air Room Air BMI result Body Mass Index 20.6 Labs 07/10/24 11:10 07/10/24 11:10 Labs: Laboratory Results - last 48 hr 07/09/24 07/10/24 07/10/24 16:30 07:45 09:40 WBC RBC Hgb Hct MCV MCH MCHC RDW Plt Count MPV Immature Gran % (Auto) Neut % (Auto) Lymph % (Auto) [place] % (Auto) Eos % (Auto) Baso % (Auto) Lymph # (Auto) [place] # (Auto) Eos # (Auto) Baso # (Auto) Abs Immat Gran (auto) Absolute Neuts (auto) Absolute Nucleated RBC Nucleated RBC % (auto) Sodium Potassium Chloride Carbon Dioxide Anion Gap BUN Creatinine Estim Creat Clear Calc Estimated GFR Random Glucose Calcium Total Bilirubin AST ALT Alkaline Phosphatase Ammonia Total Protein Albumin Hold Yellow Top Urine Opiates Screen Ur Buprenorphine Scrn Ur Oxycodone Screen Urine Methadone Screen Urine Fentanyl Screen Ur Barbiturates Screen Ur Phencyclidine Scrn Ur Amphetamines Screen U Benzodiazepines Scrn Urine Cocaine Screen U Marijuana (THC) Screen Influenza Type A (PCR) NEGATIVE NEGATIVE Influenza Type B (PCR) NEGATIVE NEGATIVE RSV RNA Qual (PCR) NEGATIVE NEGATIVE SARS-CoV-2 RNA (RT-PCR) NEGATIVE NEGATIVE S. pyogenes GrpA SUSAN Positive A 07/10/24 07/10/24 11:10 11:15 WBC 13.8 H RBC 4.54 L Hgb 12.8 L Hct 39.6 L MCV 87.2 MCH 28.2 MCHC 32.3 RDW 14.8 Plt Count 336 MPV 10.0 Immature Gran % (Auto) 0.6 H Neut % (Auto) 76.1 H Lymph % (Auto) 13.3 L [place] % (Auto) 9.7 Eos % (Auto) 0.1 Baso % (Auto) 0.2 Lymph # (Auto) 1.8 [place] # (Auto) 1.3 H Eos # (Auto) 0.0 Baso # (Auto) 0.0 Abs Immat Gran (auto) 0.08 H Absolute Neuts (auto) 10.5 H Absolute Nucleated RBC 0.000 Nucleated RBC % (auto) 0.0 Sodium 137 Potassium 4.4 Chloride 101 Carbon Dioxide 28 Anion Gap 12 BUN 12 Creatinine 0.75 Estim Creat Clear Calc 115.5 Estimated GFR > 60 Random Glucose 103 Calcium 9.4 Total Bilirubin 0.7 AST 29 ALT 30 Alkaline Phosphatase 69 Ammonia 50 Total Protein 7.6 Albumin 4.0 Hold Yellow Top See Note Urine Opiates Screen Not Detected Ur Buprenorphine Scrn Not Detected Ur Oxycodone Screen Not Detected Urine Methadone Screen Positive H Urine Fentanyl Screen POSITIVE H Ur Barbiturates Screen Not Detected Ur Phencyclidine Scrn Not Detected Ur Amphetamines Screen Not Detected U Benzodiazepines Scrn Not Detected Urine Cocaine Screen Not Detected U Marijuana (THC) Screen Not Detected Influenza Type A (PCR) Influenza Type B (PCR) RSV RNA Qual (PCR) SARS-CoV-2 RNA (RT-PCR) S. pyogenes GrpA SUSAN Imaging Radiology Impressions: ITS Impressions Chest X-Ray 07/10/24 11:15 IMPRESSION: Very subtle lingular opacities in the lungs, could represent subtle pneumonia in the appropriate clinical setting. Electronically signed by: Brian Alejandro MD 07/10/2024 11:45 AM EDT RP Medications Medications Current Medications Acetaminophen (Acetaminophen 325 Mg Tablet) 650 mg PO Q6H PRN PRN Reason: Headache/Pain, Scale 1-10 Last Admin: 07/08/24 23:07 Dose: 650 mg Al Hydroxide/Mg Hydroxide (Magnesium Hydrox/Alum Hydrox 30 Ml Oral.Susp) 30 ml PO Q6H PRN PRN Reason: Heartburn/Nausea Azithromycin (Azithromycin 250 Mg Tablet) 250 mg PO Q24H [facility] Stop: 07/15/24 07:00 Fluoxetine HCl (Fluoxetine Hcl 10 Mg Capsule) 10 mg PO DAILY [facility] Last Admin: 07/11/24 08:37 Dose: 10 mg Hydroxyzine HCl (Hydroxyzine Hcl 25 Mg Tablet) 25 mg PO Q6H PRN PRN Reason: mild anxiety Last Admin: 07/05/24 21:08 Dose: 25 mg Magnesium Hydroxide (Milk Of Magnesia 30 Ml Oral.Susp) 30 ml PO DAILY PRN PRN Reason: Constipation Methadone HCl (Methadone Hcl 20 Mg/2 Ml Oral.Conc) 50 mg PO DAILY@0800 [facility] Last Admin: 07/11/24 07:54 Dose: 50 mg Nicotine (Nicotine 21 Mg Patch.Td24) 21 mg TRANSDERMA DAILY PRN PRN Reason: smoking cessation Last Admin: 07/11/24 08:37 Dose: 21 mg Nicotine Polacrilex (Nicotine Polacrilex 2 Mg Gum) 4 mg BUCCAL Q2H PRN PRN Reason: Nicotine Cravings Last Admin: 07/11/24 08:37 Dose: 4 mg Olanzapine (Olanzapine 5 Mg Tablet) 5 mg PO TID PRN PRN Reason: agitation Last Admin: 07/08/24 20:32 Dose: 5 mg Olanzapine (Olanzapine 5 Mg Tablet) 5 mg PO BID@0900,1600 [facility] Last Admin: 07/11/24 08:37 Dose: 5 mg Quetiapine Fumarate (Quetiapine Fumarate 100 Mg Tablet) 100 mg PO BEDTIME [facility] Last Admin: 07/10/24 22:03 Dose: 100 mg Trazodone HCl (Trazodone Hcl 50 Mg Tablet) 50 mg PO BEDTIME MRX1 PRN PRN Reason: Insomnia Last Admin: 07/10/24 22:03 Dose: 50 mg Allergies Allergies Allergy/AdvReac Type Severity Reaction Status Date / Time No Known Allergies Allergy Verified 07/03/24 09:07 [No Known Allergies*] Assessment & Plan Assessment & Plan (1) Opioid use disorder, severe, dependence: Status: Acute Code(s): F11.20 - Opioid dependence, uncomplicated Assessment and Plan: continue methadone at current dose (2) Schizoaffective disorder: Status: Acute Code(s): F25.9 - Schizoaffective disorder, unspecified Plan 07/06: Continue current plans and regimen 07/07 pt says he's d doing pretty good... Better which he can tell because he is not so depressed.. Patient had refused Prozac thinking it was more of a p.r.n. but after discussion, realizing it could help prevent depression he would said he would start taking it again. Patient endorses mild AH of murmurs and says he has schizoaffective disorder. He asks for his Zyprexa to be restarted though he is not sure what dose; wants to daytime. Aids Counselor asked about Seroquel which he thinks is for sleep and says trazodone does not work. Aids Counselor agreed to add Zyprexa. 07/08: Continue regime/plan. 07/09: SARS/Flu/Covid testing. Pt has signed a CV Continue to monitor. Plan: Start Zyprexa 5 mg daily Continue Prozac 10 mg Continue Seroquel 100 mg q.h.s. Time Spent With Patient Time: Total time managing care of this patient today ____ minutes.
[2024-07-11] MEDS: Azithromycin 250 MG TABLET PO (11:34)
--- NOTE | 2024-07-11 13:30 | P.DS_ITS ---
DS: Providers Provider Date of admission: 07/04/24 12:39 Primary care physician: [facility] Consults: 07/04/24 17:13 Addiction Medicine Provider Stat Consulting Provider: Addiction Covering Reason for consultation: pt wants to continue methadone Has provider been notified: No DS: Diagnosis Discharge Diagnosis (1) Opioid use disorder, severe, dependence: Status: Acute (2) Schizoaffective disorder: Status: Acute DS: Medications Discharge Medications Home Medications: Previous Rx's ?Medication ?Instructions ?Recorded azithromycin 250 mg tablet 250 mg PO Q24H #3 tabs 07/11/24 fluoxetine 10 mg capsule 10 mg PO DAILY #30 caps 07/11/24 methadone 10 mg/mL oral 50 mg (5 mL) PO DAILY@0800 #0 mL 07/11/24 concentrate (Methadose) nicotine (polacrilex) 2 mg gum 4 mg buccal Q2H PRN Nicotine 07/11/24 Cravings #100 ea nicotine 21 mg/24 hr daily 21 mg transdermal DAILY PRN 07/11/24 transdermal patch smoking cessation #30 ea olanzapine 5 mg tablet 5 mg PO BID@0900,1600 #60 tabs 07/11/24 quetiapine 100 mg tablet 100 mg PO BEDTIME #30 tabs 07/11/24 trazodone 50 mg tablet 50 mg PO BEDTIME MRX1 PRN Insomnia 07/11/24 #30 tabs Data Data Completed and Pending Completed studies during hospitalization [Text1]: 07/05/24 07/09/24 07/10/24 10:31 16:30 07:45 WBC 13.2 H RBC 5.02 Hgb 14.0 Hct 43.3 MCV 86.3 MCH 27.9 MCHC 32.3 RDW 15.1 Plt Count 364 MPV 10.0 Immature Gran % (Auto) 0.4 Neut % (Auto) 71.4 Lymph % (Auto) 19.7 L [place] % (Auto) 8.1 Eos % (Auto) 0.2 Baso % (Auto) 0.2 Lymph # (Auto) 2.6 [place] # (Auto) 1.1 Eos # (Auto) 0.0 Baso # (Auto) 0.0 Abs Immat Gran (auto) 0.05 H Absolute Neuts (auto) 9.5 H Absolute Nucleated RBC 0.000 Nucleated RBC % (auto) 0.0 Sodium 140 Potassium 4.5 Chloride 109 H Carbon Dioxide 21 L Anion Gap 15 BUN 12 Creatinine 0.81 Estim Creat Clear Calc 101.8 Estimated GFR > 60 Random Glucose Fasting Glucose 103 H Estimat Average Glucose 114 Hemoglobin A1c % 5.6 Calcium 9.4 Total Bilirubin 0.5 AST 26 ALT 34 Alkaline Phosphatase 70 Ammonia Total Protein 7.6 Albumin 4.2 Triglycerides 182 H Cholesterol 170 LDL Cholesterol, Calc 87 HDL Cholesterol 47 TSH 0.93 Hold Yellow Top Urine Opiates Screen Ur Buprenorphine Scrn Ur Oxycodone Screen Urine Methadone Screen Urine Fentanyl Screen Ur Barbiturates Screen Ur Phencyclidine Scrn Ur Amphetamines Screen U Benzodiazepines Scrn Urine Cocaine Screen U Marijuana (THC) Screen Influenza Type A (PCR) NEGATIVE NEGATIVE Influenza Type B (PCR) NEGATIVE NEGATIVE RSV RNA Qual (PCR) NEGATIVE NEGATIVE SARS-CoV-2 RNA (RT-PCR) NEGATIVE NEGATIVE S. pyogenes GrpA SUSAN 07/10/24 07/10/24 07/10/24 09:40 11:10 11:15 WBC 13.8 H RBC 4.54 L Hgb 12.8 L Hct 39.6 L MCV 87.2 MCH 28.2 MCHC 32.3 RDW 14.8 Plt Count 336 MPV 10.0 Immature Gran % (Auto) 0.6 H Neut % (Auto) 76.1 H Lymph % (Auto) 13.3 L [place] % (Auto) 9.7 Eos % (Auto) 0.1 Baso % (Auto) 0.2 Lymph # (Auto) 1.8 [place] # (Auto) 1.3 H Eos # (Auto) 0.0 Baso # (Auto) 0.0 Abs Immat Gran (auto) 0.08 H Absolute Neuts (auto) 10.5 H Absolute Nucleated RBC 0.000 Nucleated RBC % (auto) 0.0 Sodium 137 Potassium 4.4 Chloride 101 Carbon Dioxide 28 Anion Gap 12 BUN 12 Creatinine 0.75 Estim Creat Clear Calc 115.5 Estimated GFR > 60 Random Glucose 103 Fasting Glucose Estimat Average Glucose Hemoglobin A1c % Calcium 9.4 Total Bilirubin 0.7 AST 29 ALT 30 Alkaline Phosphatase 69 Ammonia 50 Total Protein 7.6 Albumin 4.0 Triglycerides Cholesterol LDL Cholesterol, Calc HDL Cholesterol TSH Hold Yellow Top See Note Urine Opiates Screen Not Detected Ur Buprenorphine Scrn Not Detected Ur Oxycodone Screen Not Detected Urine Methadone Screen Positive H Urine Fentanyl Screen POSITIVE H Ur Barbiturates Screen Not Detected Ur Phencyclidine Scrn Not Detected Ur Amphetamines Screen Not Detected U Benzodiazepines Scrn Not Detected Urine Cocaine Screen Not Detected U Marijuana (THC) Screen Not Detected Influenza Type A (PCR) Influenza Type B (PCR) RSV RNA Qual (PCR) SARS-CoV-2 RNA (RT-PCR) S. pyogenes GrpA SUSAN Positive A 07/10/24 11:15 Urine clean catch Urine Culture - Final No growth. Imaging Diagnostic Imaging Impressions Chest X-Ray 07/10/24 11:15 IMPRESSION: Very subtle lingular opacities in the lungs, could represent subtle pneumonia in the appropriate clinical setting. Electronically signed by: Brian Alejandro MD 07/10/2024 11:45 AM EDT RP DS: Summary Time Spent with Patient Time attestation: Total time managing care of this patient today ____ minutes. Discharge Plan Discharge Anticipated Discharge Date/Time: 07/11/24 11:30 Patient Disposition: Home, Self-Care Discharge Diagnosis: Schizoaffective Disorder, Depressed Opiate Use Disorder, Dependence Referrals: [facility] [Other] - 1 Day (Give Gina call and he can help you with recovery goals and getting you set up with psychiatry and primary care support. ) [facility] [Other] - 1 Day (You can walk-in to the care management center and they can support with things like getting an I.D., a phone and referrals for housing. ) [place] [Primary Care Provider] - 1 Week Discharge Medications: New trazodone 50 mg Tablet 50 mg PO BEDTIME MRX1 PRN (Reason: Insomnia) Qty: 30 0RF azithromycin 250 mg Tablet 250 mg PO Q24H Qty: 3 0RF nicotine (polacrilex) 2 mg Gum 4 mg buccal Q2H PRN (Reason: Nicotine Cravings) Qty: 100 0RF olanzapine 5 mg Tablet 5 mg PO BID@0900,1600 Qty: 60 0RF quetiapine 100 mg Tablet 100 mg PO BEDTIME Qty: 30 0RF nicotine 21 mg/24 hr Patch 24 Hour 21 mg transdermal DAILY PRN (Reason: smoking cessation) Qty: 30 0RF fluoxetine 10 mg Capsule 10 mg PO DAILY Qty: 30 0RF methadone [Methadose] 10 mg/mL Concentrate 50 mg PO DAILY@0800 Qty: 0 0RF Rx Instructions: Partial Fill upon patient request. Discontinued Zyprexa Seroquel 100 mg PO BEDTIME clonidine HCl Discharge Orders: Discharge Order (Routine); Ordered 07/11/24 Ordered By: Nicky Gonzalez Diet: Advance to usual diet Activity on Discharge: As tolerated Stand Alone Forms: Patient Portal Discharge page, Community Support Print Language: Salvadorean Care Plan Goals: Abstinence from Substances Mood and Behavioral Stabilization Health Concerns: Abstinence from Substances Mood and Behavioral Stabilization Plan of Treatment: Take medications as directed Attend scheduled appointments Assessment: Pt has insight and demonstrates good judgment in terms of wanting to continue his treatment with [facility]. He has a safety plan that includes presenting to the closest ER or calling 911 if he is feeling unsafe. No SI,HI,AH,VH No sx of acute sharan/psychosis Strep is resolving-day two of antibiotic course Discharge Date/Time: 07/11/24 11:34
== END 2024-07-11 11:34 | disposition home or self-care (01) | DRG 750 ==
LOC: HO.ED 07-04 12:57 → HO.PM5 07-04 13:24
PROVIDERS: Social Worker; Admitting Provider Psychiatry & Neurology Psychiatry; Emergency Provider Emergency Medicine; Visit Provider Clinical Nurse Specialist Psychiatric/Mental Health, Adult
DX: F25.1 Schizoaffective disorder, depressive type (principal); F11.20 Opioid dependence, uncomplicated; T40.1X2A Poisoning by heroin, intentional self-harm, initial encounter; F19.10 Other psychoactive substance abuse, uncomplicated; Z59.02 Unsheltered homelessness; Z20.822 Contact with and (suspected) exposure to COVID-19; Z79.899 Other long term (current) drug therapy
CPT/HCPCS: 0241U; 36415; 71046; 80048; 80053; 80061; 80076; 80307; 81003; 82140; 83036; 83735; 84443; 85025; 87086; 87651; 93005; 99285; S9485

== ENCOUNTER → 2024-07-04 08:57 | Outpatient (BNV) | payer MEDICAID, SELFPAY | PROVIDERS: Emergency Provider Emergency Medicine; Visit Provider Internal Medicine Cardiovascular Disease | DX: Z13.6 Encounter for screening for cardiovascular disorders (principal) | CPT/HCPCS: 93010 ==

== ENCOUNTER 2024-07-04 12:39 | Outpatient (BNV) | payer MEDICAID, SELFPAY | END 2024-07-10 11:15 | PROVIDERS: Admitting Provider Psychiatry & Neurology Psychiatry; Emergency Provider Emergency Medicine; Visit Provider Radiology Diagnostic Radiology | DX: R91.8 Other nonspecific abnormal finding of lung field (principal) | CPT/HCPCS: 71046 ==

== ENCOUNTER 2024-07-04 12:39 | Outpatient (BNV) | payer MEDICAID, SELFPAY | END 2024-07-10 14:07 | PROVIDERS: Admitting Provider Psychiatry & Neurology Psychiatry; Emergency Provider Emergency Medicine; Visit Provider Internal Medicine | DX: R00.0 Tachycardia, unspecified (principal) | CPT/HCPCS: 93010 ==

== ENCOUNTER → 2024-07-04 12:39 | Outpatient (BNV) | payer OTHER, SELFPAY | PROVIDERS: Admitting Provider Psychiatry & Neurology Psychiatry; Emergency Provider Emergency Medicine; Visit Provider Nurse Practitioner Psychiatric/Mental Health | DX: F25.1 Schizoaffective disorder, depressive type (principal); F11.20 Opioid dependence, uncomplicated | CPT/HCPCS: 99232; 99499 ==

== ENCOUNTER 2024-08-06 17:20 | Emergency (ER) | payer OTHER, SELFPAY ==
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
[2024-08-06 17:34] LABS: MANUAL DIFF FLAG NO
[2024-08-06 17:35] LABS: Basophils Percent Auto 0.4 % (0-2); Hematocrit 41.4 % (42.0-52.0); Hemoglobin 13.9 g/dl (14.0-18.0); Imm Gran Abs Auto 0.02 X10*3/uL (0.00-0.03); Imm Gran Pct Auto 0.2 % (0.0-0.4); Lymphocytes Absolute Auto 3.2 X10*3/uL (1.2-4.9); Lymphocytes Percent Auto 35.3 % (20-40); Mean Corpuscular HGB Conc 33.6 g/dl (31.0-36.0); Mean Corpuscular Hemoglobin 28.3 pg (27.0-33.0); Mean Corpuscular Volume 84.3 fL (80.0-98.0); Mean Platelet Volume 9.7 fL (9.4-12.4); Monocytes Absolute Auto 0.7 X10*3/uL (0.1-1.2); Monocytes Percent Auto 7.5 % (2-11); Neutrophils Absolute Auto 5.1 x10*3/uL (2.0-8.3); Neutrophils Percent Auto 56.6 % (45-73); Platelet Count 299 X10*3/uL (160-400); Red Blood Count 4.91 X10*6/uL (4.60-5.80); Red Cell Distribution Width 15.3 % (11.0-16.0)
[2024-08-06 17:36] VITALS: BP 158/105; PULSE 101; RESP 18; TEMP 36.9; O2SAT 97; BMI 20.9
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
[2024-08-06] MEDS: ceFAZolin Sodium 1 GM VIAL IVPUSH (17:42)
[2024-08-06] MEDS: Diphth,Pertus(ACell),Tet Adult 0.5 ML SYRINGE IM (17:43)
[2024-08-06 17:52] LABS: Alanine Aminotransferase 41 U/L (0-40); Albumin Level 4.7 g/dL (3.5-5.0); Alkaline Phosphatase 65 U/L (39-117); Anion Gap 14 (12-20); Aspartate Amino Transferase 57 U/L (5-37); Bilirubin Total 0.6 mg/dL (0.0-1.0); Blood Urea Nitrogen 14 mg/dL (9-16); Calcium 9.5 mg/dL (8.4-10.2); Carbon Dioxide 23 mmol/L (22-29); Chloride 106 mmol/L (96-108); Estimated Glomerular Filt Rate > 60; Glucose Random 88 mg/dL (60-115); Potassium 4.8 mmol/L (3.3-5.1); Sodium 138 mmol/L (135-145); Total Protein 8.1 g/dL (6.5-8.0)
[2024-08-06] MEDS: iohexoL 350 MG/ML 100 ML INFUS..BTL IV (18:50)
[2024-08-06 19:07] VITALS: BP 121/92; PULSE 68; RESP 10; O2SAT 98
[2024-08-06 20:12] VITALS: BP 141/102; PULSE 76; RESP 9; O2SAT 98
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
[2024-08-06] MEDS: HYDROmorphone HCl 1 MG/ML SYRINGE IVPUSH (20:39)
[2024-08-06 21:20] VITALS: BP 147/97; PULSE 78; RESP 12; O2SAT 100
[2024-08-06 21:37] VITALS: BP 147/97; PULSE 78; RESP 12; TEMP 36.9; O2SAT 100
--- NOTE | 2024-08-06 21:40 | PC.NURSE ---
Pt being transferred to [facility] via ambulance. Pt states pain 5/10 after pain medication. Report given to [facility] personnel. Pt loaded onto ambulance stretcher and escorted out of department with ambulance personnel. Attempted to call report to [facility] ED at [phone], however no answer.
== END 2024-08-06 21:42 | disposition short-term general hospital (02) ==
PROVIDERS: Emergency Provider Emergency Medicine
DX: S01.401A Unspecified open wound of right cheek and temporomandibular area, initial encounter (principal); S02.40EA Zygomatic fracture, right side, initial encounter for closed fracture; X93.XXXA Assault by handgun discharge, initial encounter; F19.10 Other psychoactive substance abuse, uncomplicated; F11.20 Opioid dependence, uncomplicated; F25.9 Schizoaffective disorder, unspecified; F43.10 Post-traumatic stress disorder, unspecified; F17.210 Nicotine dependence, cigarettes, uncomplicated; Z23 Encounter for immunization; Y93.89 Activity, other specified; Y92.410 Unspecified street and highway as the place of occurrence of the external cause; Y99.9 Unspecified external cause status; Z79.899 Other long term (current) drug therapy
CPT/HCPCS: 36415; 70450; 71045; 71260; 72125; 74177; 80053; 85025; 86850; 86900; 86901; 90471; 90715; 93005; 96374; 96375; 99285; J0690; J1171; Q9967

== ENCOUNTER → 2024-08-06 17:26 | Outpatient (BNV) | payer MEDICAID, SELFPAY | PROVIDERS: Emergency Provider Emergency Medicine; Visit Provider Radiology Diagnostic Radiology | DX: Z18.10 Retained metal fragments, unspecified (principal); S02.40CA Maxillary fracture, right side, initial encounter for closed fracture; S02.40EB Zygomatic fracture, right side, initial encounter for open fracture; S00.03XA Contusion of scalp, initial encounter; S29.9XXA Unspecified injury of thorax, initial encounter | CPT/HCPCS: 70450; 71045; 71260; 72125; 74177 ==

== ENCOUNTER → 2024-08-06 17:26 | Outpatient (BNV) | payer MEDICAID, SELFPAY | PROVIDERS: Emergency Provider Emergency Medicine; Visit Provider Internal Medicine Cardiovascular Disease | DX: Z13.6 Encounter for screening for cardiovascular disorders (principal) | CPT/HCPCS: 93010 ==

== ENCOUNTER 2024-08-09 07:02 | Inpatient (IN) | payer OTHER, SELFPAY ==
[2024-08-09] VITALS (13 sets, daily range): BP systolic 112–149; BP diastolic 45–96; PULSE 71–99; RESP 12–23; TEMP 36.4–37.2; O2SAT 98–100; BMI 23.0
--- NOTE | 2024-08-09 07:34 | PC.NURSE ---
Pt wakes to voice; denies SI/HI; endorses using heroin; pt changed over by techs/security; vss; SR per monitor
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
--- NOTE | 2024-08-09 16:54 | PC.NURSE ---
Pt remains somnolent; wakes to voice; still feels too weak to walk ; aware; vss
--- NOTE | 2024-08-09 18:33 | ECG_ITS ---
Test Reason : s/p overdose Blood Pressure : */* mmHG Vent. Rate : 80 BPM Atrial Rate : 80 BPM P-R Int : 130 ms QRS Dur : 92 ms QT Int : 358 ms P-R-T Axes : 73 69 46 degrees QTcB Int : 412 ms Normal sinus rhythm Normal ECG When compared with ECG of 06-Aug-2024 17:26, [place] interval has increased Referred By: Jenelle Quintanilla Electronically Signed By: Mamadou Lopez
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
[2024-08-09 19:20] LABS: MANUAL DIFF FLAG NO
[2024-08-09 19:23] LABS: Appearance Urine Clear; Color Urine Yellow; Glucose Urine UA Negative (Negative); Leukocyte Esterase Urine Small (1+) (Negative); Nitrite Urine Negative (Negative); PH 6.5 (5.0-9.0); Specific Gravity - Urine 1.015 (1.005-1.025); UMIC TRIGGER UA YES; Urine Blood Negative (Negative); Urine Ketones Negative (Negative); Urine Protein Negative (Neg-Trace)
[2024-08-09 19:25] LABS: Bacteria Urine None Seen (None Seen); Hyaline Casts Urine 0-2 /LPF (0-2); RBC Urine 0-2 /HPF (0-2); Squamous Epithelial Cell Urine 0-2 /HPF (0-2)
[2024-08-09 19:27] LABS: Basophils Absolute Auto 0.1 X10*3/uL (0.0-0.2); Eosinophils Absolute Auto 0.2 X10*3/uL (0.0-0.4); Eosinophils Percent Auto 2.3 % (0-4); Hematocrit 39.9 % (42.0-52.0); Imm Gran Abs Auto 0.02 X10*3/uL (0.00-0.03); Imm Gran Pct Auto 0.3 % (0.0-0.4); Lymphocytes Absolute Auto 2.8 X10*3/uL (1.2-4.9); Lymphocytes Percent Auto 40.1 % (20-40); Mean Corpuscular HGB Conc 32.6 g/dl (31.0-36.0); Mean Corpuscular Hemoglobin 27.8 pg (27.0-33.0); Mean Corpuscular Volume 85.4 fL (80.0-98.0); Mean Platelet Volume 9.9 fL (9.4-12.4); Monocytes Absolute Auto 0.6 X10*3/uL (0.1-1.2); Monocytes Percent Auto 9.2 % (2-11); Neutrophils Absolute Auto 3.3 x10*3/uL (2.0-8.3); Neutrophils Percent Auto 47.1 % (45-73); Platelet Count 285 X10*3/uL (160-400); Red Blood Count 4.67 X10*6/uL (4.60-5.80); Red Cell Distribution Width 15.6 % (11.0-16.0)
[2024-08-09 19:35] LABS: Amphetamine Screen Urine Not Detected (Not Detect); Barbiturates, Urine Not Detected (Not Detect); Benzodiazepines Screen Urine Not Detected (Not Detect); Buprenorphine Scr Not Detected (Not Detect); COVID-19 Test Negative (Negative); Cannabinoid Screen Urine Not Detected (Not Detect); Cocaine Screen Urine POSITIVE (Not Detect); Fentanyl, urine POSITIVE (Not Detect); IDNOW Serial# 55D5AD1C; Methadone Screen, Urine Not Detected (Not Detect); Opiate Screen Urine POSITIVE (Not Detect); Oxycodone Screen Urine Not Detected (Not Detect); Phencyclidine Screen Urine Not Detected (Not Detect)
[2024-08-09 19:37] LABS: Alanine Aminotransferase 39 U/L (0-40); Albumin Level 4.4 g/dL (3.5-5.0); Alkaline Phosphatase 69 U/L (39-117); Anion Gap 15 (12-20); Aspartate Amino Transferase 36 U/L (5-37); Bilirubin Total 0.7 mg/dL (0.0-1.0); Blood Urea Nitrogen 15 mg/dL (9-16); Calcium 9.5 mg/dL (8.4-10.2); Carbon Dioxide 28 mmol/L (22-29); Chloride 103 mmol/L (96-108); Creatinine Clr Calc Pharmacy 120.1; Estimated Glomerular Filt Rate > 60; Ethanol < 10 mg/dL; Glucose Random 77 mg/dL (60-115); Sodium 142 mmol/L (135-145); Total Protein 7.6 g/dL (6.5-8.0)
[2024-08-09 19:39] LABS: Acetaminophen LAB < 3 mcg/mL (<30); Salicylate < 5.0 mg/dL (15-30)
[2024-08-09] MEDS: Acetaminophen 325 MG TABLET 650 MG PO (22:09)
--- NOTE | 2024-08-10 05:05 | PC.NURSE ---
patient awoke somewhat early and was requesting drinks and snacks
--- NOTE | 2024-08-10 05:09 | PC.NURSE ---
patient states he has not been on methadone recently but one month toby itg appears he is not current according to dc history client was on 50mg one month ago
[2024-08-10 06:06] VITALS: RESP 16
--- NOTE | 2024-08-10 09:17 | PC.NURSE ---
Assumed care of patient at 0645, patient appears to be sleeping, respirations even and unlabored, no apparent distress this am. Continue plan of care for CARE team norman
[2024-08-10 10:50] VITALS: BP 164/104; PULSE 104; RESP 18; TEMP 36.4; O2SAT 100
--- NOTE | 2024-08-10 11:06 | MHC.EDTECH ---
Addendum entered by Marry Solis 08/10/24 12:03: RN aware of needs Original Note: Patient comes out of room demanding for discharge. Patient agitated and states to this tech, I'm dope sick and you won't give me my methadone. Patient requesting discharge or methadone. This tech spoke with patient and was able to redirect/de-escalate patient to room with food, headset for music and TV on, vitals taken. This tech will make RN aware of patient requests.
--- NOTE | 2024-08-10 11:37 | PHA.MEDREC ---
Addendum entered by Laila Mina [facility] 08/10/24 11:50: REVIEWED BY PHARMACIST Original Note: Pharmacy Consult ? Medication Reconciliation Pharmacy has completed the medication reconciliation. Per notes, patient is not currently taking medications. 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
[2024-08-10] MEDS: methADONE HCl 20 MG/2 ML ORAL.CONC 30 MG PO (11:50)
[2024-08-10] MEDS: cloNIDine HCL 0.2 MG TABLET PO (11:51)
[2024-08-10] MEDS: Acetaminophen 325 MG TABLET 975 MG PO (11:53)
[2024-08-10 14:05] VITALS: BP 133/87; PULSE 87; RESP 16; TEMP 36.4; O2SAT 98
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
[2024-08-10] MEDS: Nicotine 21 MG PATCH.TD24 TRANSDERMA (15:38)
[2024-08-10] MEDS: Nicotine Polacrilex 2 MG GUM BUCCAL ×2 (15:38→19:24)
[2024-08-10 19:46] VITALS: BP 125/75; PULSE 90; TEMP 36.4; O2SAT 98
[2024-08-10] MEDS: Acetaminophen 325 MG TABLET 650 MG PO (20:41)
[2024-08-10] MEDS: traZODone HCL 50 MG TABLET PO (20:41)
[2024-08-11 09:00] VITALS: BP 138/75; PULSE 97; RESP 20; TEMP 37; O2SAT 100
[2024-08-11] MEDS: Nicotine 21 MG PATCH.TD24 TRANSDERMA (09:02)
[2024-08-11 09:10] LABS: Estimated Average Glucose 114 mg/dL; Hemoglobin A1C 127.4275 umol/L; Hemoglobin A1c % 5.6 % (<6.0); Total Hemoglobin (HGBA1C) 3349.6477 umol/L
[2024-08-11 09:20] LABS: Cholesterol 171 mg/dL (<200); HDL Cholesterol 51 mg/dL (>40); LDL Cholesterol Calculated 101 mg/dL (<100); Triglycerides 97 mg/dL (<150)
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
[2024-08-11 09:37] LABS: Free T4 (Free Thyroxine) 1.02 ng/dL (0.71-1.85); Thyroid Stimulating Hormone 0.31 uIU/mL (0.32-4.0)
[2024-08-11 09:49] LABS: Folate 9.8 ng/mL (> or = 4.0); Vitamin B12 649 pg/mL (200-900)
--- NOTE | 2024-08-11 10:16 | MHC.RECOVRN ---
Met with pt. in 511-1 after receiving request for consult for pt. requesting methadone. Pt presented to the ED on 08/09 for heroin OD. He was subsequently admitted to inpt. psych awaiting a dual dx bed search. Pt A&O pleasant and cooperative. Pt denies any significant medical history. His EKG upon arrival to ED was WNL. Pt reports h/o IV heroin and cocaine and smoking crack all since he was 20. Most recent use is reported as heroin 1-2 bundles/day IV and smoking crack up to 500.00/day. Cocaine via IV and sniffing-amount not quantified. Verbalizes his goal as getting back on methadone for MOUD and getting out of this area to obtain some length of sobriety. Pt reports that he has received methadone in the past and states he was maintained on 120mg of methadone with [facility] clinics. He was unable to remember exact timing and upon calling the clinic and speaking with SOLOMON Horne t/w was unable to verify dose. Pt did receive a 1x dose of 30mg methadone yesterday AM. He tolerated well, but during visit this AM he had not yet been dosed and was reporting diarrhea, nausea, chills and agitation and was yawning a lot. T/W consulted with Brenda Grider NP and recommended to floor nurse Yudelka that pt receive 40mg methadone this AM and an additional 10 in the afternoon PRN. ACS will re evaluate tomorrow. Pt verbalizes and agrees to plan and denies any further questions at this time. T/W available PRN.
[2024-08-11] MEDS: methADONE HCl 20 MG/2 ML ORAL.CONC 40 MG PO (10:40)
[2024-08-11 12:51] VITALS: BP 131/82
[2024-08-11] MEDS: cloNIDine HCL 0.1 MG TABLET PO (12:51)
[2024-08-11] MEDS: Acetaminophen 325 MG TABLET 650 MG PO (15:11)
[2024-08-11] MEDS: OLANZapine 5 MG TABLET PO (17:26)
[2024-08-11 20:00] VITALS: BP 109/55; PULSE 86; RESP 16; TEMP 36.5; O2SAT 94
[2024-08-11] MEDS: methADONE HCl 20 MG/2 ML ORAL.CONC 10 MG PO (20:29)
[2024-08-11] MEDS: QUEtiapine Fumarate 100 MG TABLET PO (20:33)
[2024-08-12 08:00] VITALS: BP 136/77; PULSE 66; RESP 16; TEMP 36.8; O2SAT 100
[2024-08-12] MEDS: methADONE HCl 20 MG/2 ML ORAL.CONC 40 MG PO (08:41)
[2024-08-12] MEDS: OLANZapine 5 MG TABLET PO ×2 (08:41→17:28)
[2024-08-12] MEDS: Nicotine 21 MG PATCH.TD24 TRANSDERMA (08:42)
[2024-08-12] MEDS: Acetaminophen 325 MG TABLET 650 MG PO ×2 (08:44→20:36)
[2024-08-12] MEDS: Nicotine Polacrilex 2 MG GUM BUCCAL ×3 (09:21→12:57)
[2024-08-12] MEDS: methADONE HCl 20 MG/2 ML ORAL.CONC 10 MG PO (12:57)
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
--- NOTE | 2024-08-12 18:17 | PM.EVENT ---
Event Note Date of Service: 08/12/24 Event Note: Addiction consult received for patient with OUD Methadone initiated on 08/11 by covering psychiatrist (40mg +10mg PRN) Today, discussed with attending provider, who will continue methadone dose titration as appropriate no additional ACS follow up needed at this time. Time Spent With Patient Time: Total time managing care of this patient today ____ minutes.
[2024-08-12 19:52] VITALS: BP 132/85; PULSE 72; RESP 16; TEMP 36.9; O2SAT 97
[2024-08-12] MEDS: QUEtiapine Fumarate 100 MG TABLET PO (20:29)
[2024-08-13] MEDS: methADONE HCl 20 MG/2 ML ORAL.CONC 40 MG PO (07:55)
[2024-08-13 08:00] VITALS: RESP 18
[2024-08-13] MEDS: OLANZapine 5 MG TABLET PO ×2 (08:55→17:29)
[2024-08-13] MEDS: Nicotine 21 MG PATCH.TD24 TRANSDERMA (08:55)
[2024-08-13] MEDS: Acetaminophen 325 MG TABLET 650 MG PO ×2 (08:55→18:05)
[2024-08-13] MEDS: Nicotine Polacrilex 2 MG GUM BUCCAL (18:05)
[2024-08-13 19:55] VITALS: BP 151/68; PULSE 83; TEMP 36.9; O2SAT 97
[2024-08-13] MEDS: QUEtiapine Fumarate 100 MG TABLET PO (20:58)
[2024-08-14] MEDS: methADONE HCl 20 MG/2 ML ORAL.CONC 45 MG PO (07:52)
[2024-08-14 08:00] VITALS: BP 156/85; PULSE 85; RESP 18; TEMP 37.1; O2SAT 100
[2024-08-14] MEDS: Nicotine 21 MG PATCH.TD24 TRANSDERMA (08:31)
[2024-08-14] MEDS: OLANZapine 5 MG TABLET PO (08:31)
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
[2024-08-14] MEDS: methADONE HCl 20 MG/2 ML ORAL.CONC 5 MG PO (16:17)
[2024-08-14] MEDS: Acetaminophen 325 MG TABLET 650 MG PO (16:18)
[2024-08-14 20:00] VITALS: BP 140/83; PULSE 85; TEMP 37.3; O2SAT 97
[2024-08-14] MEDS: QUEtiapine Fumarate 25 MG TABLET 75 MG PO (20:53)
[2024-08-14] MEDS: OLANZapine 10 MG TABLET PO (20:54)
[2024-08-15] MEDS: methADONE HCl 20 MG/2 ML ORAL.CONC 45 MG PO (08:00)
[2024-08-15 08:20] VITALS: BP 124/73; PULSE 76; TEMP 38.4; O2SAT 97
[2024-08-15] MEDS: Acetaminophen 325 MG TABLET 650 MG PO (09:12)
[2024-08-15] MEDS: Nicotine 21 MG PATCH.TD24 TRANSDERMA (09:12)
[2024-08-15 11:39] LABS: MANUAL DIFF FLAG NO
[2024-08-15 11:42] LABS: Basophils Percent Auto 0.4 % (0-2); Eosinophils Absolute Auto 0.2 X10*3/uL (0.0-0.4); Eosinophils Percent Auto 2.1 % (0-4); Hematocrit 36.6 % (42.0-52.0); Hemoglobin 11.5 g/dl (14.0-18.0); Imm Gran Abs Auto 0.03 X10*3/uL (0.00-0.03); Imm Gran Pct Auto 0.3 % (0.0-0.4); Lymphocytes Percent Auto 31.9 % (20-40); Mean Corpuscular HGB Conc 31.4 g/dl (31.0-36.0); Mean Corpuscular Volume 89.3 fL (80.0-98.0); Mean Platelet Volume 9.6 fL (9.4-12.4); Monocytes Absolute Auto 1.1 X10*3/uL (0.1-1.2); Monocytes Percent Auto 12.2 % (2-11); Neutrophils Percent Auto 53.1 % (45-73); Platelet Count 327 X10*3/uL (160-400); Red Cell Distribution Width 15.9 % (11.0-16.0); White Blood Count 9.4 X10*3/uL (4.8-10.8)
[2024-08-15 11:56] LABS: Anion Gap 12 (12-20); Blood Urea Nitrogen 11 mg/dL (9-16); Calcium 9.8 mg/dL (8.4-10.2); Carbon Dioxide 32 mmol/L (22-29); Chloride 102 mmol/L (96-108); Creatinine Clr Calc Pharmacy 125.3; Estimated Glomerular Filt Rate > 60; Glucose Random 90 mg/dL (60-115); Potassium 4.4 mmol/L (3.3-5.1); Sodium 142 mmol/L (135-145)
[2024-08-15 11:58] LABS: Lactic Acid 1.6 mmol/L (0.5-2.0)
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
[2024-08-15] MEDS: Amoxicillin/Potassium Clav 875 MG TABLET PO ×2 (13:14→21:10)
[2024-08-15 20:00] VITALS: BP 140/81; PULSE 82; RESP 16; TEMP 36.4; O2SAT 95
[2024-08-15] MEDS: OLANZapine 10 MG TABLET PO (21:10)
[2024-08-15] MEDS: cloNIDine HCL 0.1 MG TABLET PO (21:17)
[2024-08-15] MEDS: traZODone HCL 50 MG TABLET PO (21:17)
[2024-08-16 07:48] VITALS: BP 113/56; PULSE 77; TEMP 37; O2SAT 99
[2024-08-16] MEDS: methADONE HCl 20 MG/2 ML ORAL.CONC 45 MG PO (08:10)
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
[2024-08-16] MEDS: Amoxicillin/Potassium Clav 875 MG TABLET PO ×2 (09:30→20:41)
[2024-08-16] MEDS: Nicotine 21 MG PATCH.TD24 TRANSDERMA (09:30)
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
[2024-08-16] MEDS: Acetaminophen 325 MG TABLET 650 MG PO (16:19)
[2024-08-16] MEDS: Nicotine Polacrilex 2 MG GUM BUCCAL (16:19)
[2024-08-16 20:00] VITALS: BP 121/67; PULSE 89; RESP 16; TEMP 36.9; O2SAT 95
[2024-08-16] MEDS: OLANZapine 10 MG TABLET PO (20:41)
[2024-08-16] MEDS: traZODone HCL 50 MG TABLET PO (20:41)
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
[2024-08-17] MEDS: methADONE HCl 20 MG/2 ML ORAL.CONC 45 MG PO (11:05)
[2024-08-17] MEDS: Nicotine 21 MG PATCH.TD24 TRANSDERMA (11:08)
[2024-08-17] MEDS: Amoxicillin/Potassium Clav 875 MG TABLET PO ×2 (11:08→21:02)
[2024-08-17] MEDS: Nicotine Polacrilex 2 MG GUM BUCCAL ×2 (11:11→13:32)
[2024-08-17 20:00] VITALS: BP 124/78; PULSE 84; TEMP 36.5; O2SAT 96
[2024-08-17] MEDS: traZODone HCL 50 MG TABLET PO (21:03)
[2024-08-17] MEDS: OLANZapine 10 MG TABLET PO (21:04)
[2024-08-18] MEDS: methADONE HCl 20 MG/2 ML ORAL.CONC 45 MG PO (07:59)
[2024-08-18 08:00] VITALS: BP 126/64; PULSE 65; RESP 17; TEMP 36.6; O2SAT 99
[2024-08-18] MEDS: Amoxicillin/Potassium Clav 875 MG TABLET PO ×2 (09:51→21:32)
[2024-08-18] MEDS: OLANZapine 2.5 MG TABLET PO (09:53)
[2024-08-18] MEDS: Nicotine Polacrilex 2 MG GUM BUCCAL (09:53)
[2024-08-18 20:00] VITALS: BP 110/72; PULSE 83; TEMP 37.2; O2SAT 94
[2024-08-18] MEDS: Acetaminophen 325 MG TABLET 650 MG PO (21:31)
[2024-08-18] MEDS: OLANZapine 10 MG TABLET PO (21:32)
[2024-08-18] MEDS: traZODone HCL 50 MG TABLET PO (21:32)
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
[2024-08-19] MEDS: methADONE HCl 20 MG/2 ML ORAL.CONC 45 MG PO (07:47)
[2024-08-19 08:30] VITALS: BP 107/60; PULSE 75; RESP 18; TEMP 36.9; O2SAT 98
[2024-08-19] MEDS: Nicotine 21 MG PATCH.TD24 TRANSDERMA (08:31)
[2024-08-19] MEDS: Amoxicillin/Potassium Clav 875 MG TABLET PO ×2 (08:31→20:14)
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
[2024-08-19] MEDS: Acetaminophen 325 MG TABLET 650 MG PO (12:02)
[2024-08-19] MEDS: hydrOXYzine HCL 25 MG TABLET PO (12:02)
[2024-08-19] MEDS: Nicotine Polacrilex 2 MG GUM BUCCAL (14:20)
[2024-08-19] MEDS: guanFACINE HCl ER 1 MG TAB.ER.24H PO (15:09)
[2024-08-19 20:00] VITALS: BP 120/70; PULSE 94; TEMP 36.4; O2SAT 98
[2024-08-19] MEDS: OLANZapine 10 MG TABLET PO (20:14)
[2024-08-20] MEDS: methADONE HCl 20 MG/2 ML ORAL.CONC 50 MG PO (07:49)
[2024-08-20] MEDS: guanFACINE HCl ER 1 MG TAB.ER.24H PO (08:09)
[2024-08-20] MEDS: Amoxicillin/Potassium Clav 875 MG TABLET PO ×2 (08:09→21:14)
[2024-08-20 08:17] VITALS: BP 95/53; PULSE 70; RESP 18; TEMP 36.4; O2SAT 98
[2024-08-20] MEDS: Nicotine Polacrilex 2 MG GUM BUCCAL (17:02)
[2024-08-20 20:00] VITALS: BP 110/53; PULSE 90; TEMP 37; O2SAT 95
[2024-08-20] MEDS: Acetaminophen 325 MG TABLET 650 MG PO (21:13)
[2024-08-20] MEDS: traZODone HCL 50 MG TABLET PO (21:14)
[2024-08-20] MEDS: hydrOXYzine HCL 25 MG TABLET PO (21:14)
[2024-08-20] MEDS: OLANZapine 10 MG TABLET PO (21:14)
[2024-08-21] MEDS: methADONE HCl 20 MG/2 ML ORAL.CONC 50 MG PO (07:56)
[2024-08-21 08:00] VITALS: BP 88/53; PULSE 78; TEMP 36.5
[2024-08-21 08:15] VITALS: BP 111/60; PULSE 70
[2024-08-21] MEDS: guanFACINE HCl ER 1 MG TAB.ER.24H PO (08:33)
[2024-08-21] MEDS: Amoxicillin/Potassium Clav 875 MG TABLET PO (08:33)
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
[2024-08-21] MEDS: Naloxone HCl Nasal TAKE HOME 4 MG SPRAY 8 MG NOSTRILALT (10:06)
== END 2024-08-21 11:16 | disposition home or self-care (01) | DRG 750 ==
LOC: HO.ED 08-10 06:44 → HO.PM5 08-10 12:35
PROVIDERS: Physician Assistant Medical; Student in an Organized Health Care Education/Training Program; Admitting Provider Psychiatry & Neurology Psychiatry; Emergency Provider Emergency Medicine; Visit Provider Psychiatry & Neurology Psychiatry
DX: F25.9 Schizoaffective disorder, unspecified (principal); F11.20 Opioid dependence, uncomplicated; F17.210 Nicotine dependence, cigarettes, uncomplicated; Z59.02 Unsheltered homelessness; Z71.6 Tobacco abuse counseling; Z20.822 Contact with and (suspected) exposure to COVID-19; Z79.899 Other long term (current) drug therapy
CPT/HCPCS: 36415; 80048; 80053; 80061; 80143; 80179; 80307; 81001; 82607; 82746; 83036; 83605; 84439; 84443; 85025; 87040; 87635; 93005; 99285; S9485

== ENCOUNTER → 2024-08-09 18:33 | Outpatient (BNV) | payer MEDICAID, SELFPAY | PROVIDERS: Admitting Provider Psychiatry & Neurology Psychiatry; Emergency Provider Emergency Medicine; Visit Provider Internal Medicine Cardiovascular Disease | DX: F11.90 Opioid use, unspecified, uncomplicated (principal) | CPT/HCPCS: 93010 ==

== ENCOUNTER → 2024-08-10 12:28 | Outpatient (BNV) | payer MEDICAID, SELFPAY | PROVIDERS: Admitting Provider Psychiatry & Neurology Psychiatry; Emergency Provider Emergency Medicine; Visit Provider Student in an Organized Health Care Education/Training Program | DX: S01.83XD Puncture wound without foreign body of other part of head, subsequent encounter (principal) | CPT/HCPCS: 99232 ==

== ENCOUNTER → 2024-08-10 12:28 | Outpatient (BNV) | payer OTHER, SELFPAY | PROVIDERS: Admitting Provider Psychiatry & Neurology Psychiatry; Emergency Provider Emergency Medicine; Visit Provider Psychiatry & Neurology Psychiatry | DX: F25.1 Schizoaffective disorder, depressive type (principal); F11.20 Opioid dependence, uncomplicated | CPT/HCPCS: 99233 ==

== ENCOUNTER 2024-09-30 16:03 | Emergency (ER) | payer MEDICAID, SELFPAY ==
[2024-09-30 16:23] VITALS: BP 136/91; BP 140/70; PULSE 101; PULSE 110; RESP 18; TEMP 36.3; O2SAT 95; O2SAT 97; BMI 25.8
[2024-09-30 16:29] VITALS: BP 136/91; PULSE 101; RESP 18; TEMP 36.3; O2SAT 95
--- NOTE | 2024-09-30 16:43 | ED_ITS ---
HPI - General Adult General Chief complaint: Overdose Stated complaint: found unresponsive, drug use, alert now Time Seen by Provider: 09/30/24 16:43 Source: patient, RN notes reviewed and old records reviewed Mode of arrival: ambulatory Limitations: no limitations History of Present Illness ED Provider: Coni [facility] narrative: Patient is a 28-year-old male with history of schizoaffective disorder, PTSD, opioid use disorder presenting via EMS after being found unresponsive outside in [facility]. He admits to using heroin as well as crack/cocaine daily. He complains of chronic bilateral foot pain due to walking most days but denies any other acute complaints. He initially stated that he is not interested in assistance with detox or methadone but then changed his mind and said he is interested. Denies suicidal or homicidal ideation, reports . Patient did not receive naloxone but woke to EMS standing around him on arrival. MD complaint: found unresponsive Related Data Previous Rx's ?Medication ?Instructions ?Recorded amoxicillin 875 mg-potassium 1 tab PO BID #17 tabs 08/10 clavulanate 125 mg tablet guanfacine 1 mg tablet,extended 1 mg PO DAILY 30 days #30 tabs 08/21/24 release 24 hr methadone 10 mg/mL oral 50 mg (5 mL) PO DAILY@0800 # 0 mL 08/21/24 concentrate (Methadose) nicotine 21 mg/24 hr daily 21 mg transdermal DAILY PRN 08/21/24 transdermal patch nicotine cravings 28 days #2 8 ea olanzapine 10 mg tablet 10 mg PO BEDTIME 30 days #30 tabs 08/21/24 Allergies Allergy/AdvReac Type Severity Reaction Status Date / Time No Known Allergies (No Known Allergy Verified 09/30/24 16:27 Allergies*) Review of Systems 2 Review of Systems: As per HPI Yes all other systems are reviewed and are negative Constitutional: Constitutional: Reports as per HPI [facility] Past Medical History Medical History (Updated 09/30/24 @ 17:46 by Jacey Newberry NP) PTSD (post-traumatic stress disorder) Schizoaffective disorder Schizophrenia Polysubstance abuse Social History Social History Household Members: None Housing: Homeless Do you presently have visiting nurse or other home services: No Unable to assess alcohol history related to: Refusing to respond Alcohol intake: current Alcohol intake frequency: 3 or more drinks per day Patient Tobacco Use Status: Current everyday Tobacco user Tobacco use type: Cigarette Cigarette Packs Per Day: 2 Cigarettes Per Day: 40.0 Smoked in Last 30 Days: Yes e-Cigarette/Vaping Use: Currently Using Second Hand Smoke Exposure: Yes Use of substances other than those prescribed or required for medical reasons: Yes Substance Use Type: Crack/Cocaine and Heroin Substance Use Frequency: Daily Advance Directives: No Advance Directives Information Provided: No Do you have a plan to hurt others: No Plan service: No Sexual orientation: Bisexual Physical Exam ED Vital Signs: Vital Signs - 24 hr 09/30/24 16:23 09/30/24 16:29 Temperature 97.4 F 97.4 F Pulse Rate 101 H 101 H Respiratory Rate 18 18 Blood Pressure 136/91 H 136/91 H Pulse Oximetry 95 95 Oxygen Delivery Method Room Air Room Air BMI result Body Mass Index 25.8 Vital signs have been reviewed and appear to be correct. Blood pressure normal. Heart rate normal. Respiratory rate normal. Temperature normal. Oxygen saturation normal. Const General: cooperative and no acute distress Orientation/consciousness: oriented to person, oriented to place, oriented to time and patient oriented x3 HENMT Head: Yes normocephalic and Yes atraumatic Ears: external ears normal General nose exam: Normal external nose present Face and sinus: Yes face symmetric Mouth: oropharynx normal and moist mucous membranes Throat: Yes uvula midline Eyes Pupils: Equal, round and reactive pupils present Neck Neck: Yes normal visual inspection and Yes supple Resp Effort & Inspection: normal respiratory effort and able to speak in complete sentences Auscultation: clear to auscultation bilaterally Cardio Rate: regular rate Rhythm: regular rhythm Heart sounds: S1 normal heart sound present and S2 normal heart sound present GI Palpation (GI): Soft to palpation and nontender Auscultation: normoactive bowel sounds General: Yes no CVA tenderness Back/Spine/Pelvis Back: no CVA tenderness Skin General skin exam: elasticity normal and turgor normal Neuro General: oriented to person, oriented to place, oriented to time, patient oriented x3, moves all extremities, no focal motor deficits and CN's II-XI intact bilaterally Cranial nerves: Yes Equal, round and reactive pupils present Cognition (Neuro): normal cognition Extrem General: Yes full ROM, Yes no pedal edema and Yes no calf tenderness Psych Mental Status: mental status grossly normal Affect: normal affect Thought process: Normal thought process present Medical Decision Making Medical Decision Making [facility] Narrative: Patient is a 28-year-old male with history of schizoaffective disorder, PTSD, opioid use disorder presenting via EMS after being found unresponsive outside in [facility]. On exam patient is awake, A+Ox3, VS WNL, afebrile, normal neurological exam without focal deficits, physical exam findings as above. Given reported symptoms and physical exam findings, initial differential includes but is not limited to drug or alcohol intoxication or withdrawal, electrolyte abnormalities, opioid use disorder. CARE team met with patient who is now declining any assistance with detox. He is reporting +AH, and is not currently compliant with his psychiatric medications but denies SI/HI and is requesting discharge. He did not receive Narcan METAL SANDER. He has been observed in the ED for 1.5 hours without change. Feel he is stable for discharge at this time. Will provide with take-home naloxone. Patient also provided with resources for detox by care team. Advised he can return to the ED at any time if he should change his mind and seek assistance with detox. Patient verbalized understanding of and agreement with plan. Differential Diagnosis Differential Diagnoses: The differential diagnosis associated with the presentation includes As per MDM Admission/Observation Consideration of admission/observation: Escalation of care including admission/observation considered Patient would have been admitted to the hospital had their clinical presentation warranted hospital admission. Consult Healthcare Provider CARE/recovery Lab Data 09/30/24 17:20 09/30/24 17:20 Labs: Lab Results 09/30/24 Range/Units 17:20 WBC 6.6 (4.8-10.8) X10*3/uL RBC 4.48 L (4.60-5.80) X10*6/uL Hgb 12.4 L (14.0-18.0) g/dl Hct 36.8 L (42.0-52.0) % MCV 82.1 (80.0-98.0) fL MCH 27.7 (27.0-33.0) pg MCHC 33.7 (31.0-36.0) g/dl RDW 14.2 (11.0-16.0) % Plt Count 342 (160-400) X10*3/uL MPV 9.6 (9.4-12.4) fL Immature Gran % (Auto) 0.3 (0.0-0.4) % Neut % (Auto) 53.6 (45-73) % Lymph % (Auto) 35.6 (20-40) % [place] % (Auto) 9.4 (2-11) % Eos % (Auto) 0.6 (0-4) % Baso % (Auto) 0.5 (0-2) % Lymph # (Auto) 2.4 (1.2-4.9) X10*3/uL [place] # (Auto) 0.6 (0.1-1.2) X10*3/uL Eos # (Auto) 0.0 (0.0-0.4) X10*3/uL Baso # (Auto) 0.0 (0.0-0.2) X10*3/uL Abs Immat Gran (auto) 0.02 (0.00-0.03) X10*3/uL Absolute Neuts (auto) 3.6 (2.0-8.3) x10*3/uL Absolute Nucleated RBC 0.000 (0.0-0.012) X10*3/uL Nucleated RBC % (auto) 0.0 (0.0-0.2) /100WBC Sodium 143 (135-145) mmol/L Potassium 3.9 (3.3-5.1) mmol/L Chloride 106 (96-108) mmol/L Carbon Dioxide 27 (22-29) mmol/L Anion Gap 14 (12-20) BUN 14 (9-16) mg/dL Creatinine 0.90 (0.5-1.4) mg/dL Estim Creat Clear Calc 113.2 Estimated GFR > 60 Random Glucose 133 H (60-115) mg/dL Calcium 9.1 D (8.4-10.2) mg/dL Total Bilirubin 0.3 (0.0-1.0) mg/dL AST 37 (5-37) U/L ALT 52 H (0-40) U/L Alkaline Phosphatase 70 (39-117) U/L Total Protein 7.2 (6.5-8.0) g/dL Albumin 4.5 (3.5-5.0) g/dL Ethyl Alcohol < 10 mg/dL External Record Review External record reviewed: Inpatient record, Office record and Outpatient record Prescription Management I considered prescription management with: Other Discharge Plan Discharge Clinical Impression: Opioid use disorder Patient Disposition: Home, Self-Care Instructions: Opioid Use Disorder (ED) Additional Instructions: Opiate use disorder You were seen in our Emergency Department today for treatment of opiate use disorder. You may have been dosed with medication for opiate use disorder (MOUD) in the form of suboxone or methadone. You may experience feeling some withdrawal symptoms and this is normal. The? dose in the Emergency Department is a starting dose and meant to be titrated up once you follow up with a clinic. Please do not feel discouraged, it is a process. The nurse has reviewed with you where to follow up and what information to bring with you, to continue treatment. You also may have been given naloxone (narcan) to take home with you. This medication is used to potentially treat opiate overdose. If you decide you want to stop or cut down on how much you?re using, you can call or walk into our outpatient Addiction Treatment office: [facility] (M-F 9am-5p) [address] [place] [address], [phone] You may have been provided with safer injection?items, please take time to take care of YOU and your health. Use new supplies whenever possible to lessen the chances of infections and other illnesses.? ?If you need more supplies, please go [facility],? [address] [place] [address] OR you can call or text to coordinate delivery of safer supplies. You were also provided a list of several treatment providers in the area.? If you experience any worsening symptoms you cannot control please return to the ED or call 911. Please follow up at your next appointment. Things to look out for are fevers, chest pain, shortness of breath, severe pain, dizziness, fainting or any other concerns. Prescriptions: No Action amoxicillin-pot clavulanate 875-125 mg Tablet 1 tab PO BID Qty: 17 0RF nicotine 21 mg/24 hr Patch 24 Hour 21 mg transdermal DAILY PRN (Reason: nicotine cravings) 28 Days Qty: 28 0RF guanfacine 1 mg Tablet Extended Release 24 Hr 1 mg PO DAILY 30 Days Qty: 30 0RF olanzapine 10 mg Tablet 10 mg PO BEDTIME 30 Days Qty: 30 0RF methadone [Methadose] 10 mg/mL Concentrate 50 mg PO DAILY@0800 Qty: 0 0RF Rx Instructions: Partial Fill upon patient request. Print Language: Occitan
--- NOTE | 2024-09-30 16:51 | MHC.EDTECH ---
pt walked to bathroom and changed over with security. Bags searched and secured by security and located in [facility] shelf 2
[2024-09-30 17:25] LABS: MANUAL DIFF FLAG NO
[2024-09-30 17:28] LABS: Hematocrit 36.8 % (42.0-52.0); Hemoglobin 12.4 g/dl (14.0-18.0); Imm Gran Abs Auto 0.02 X10*3/uL (0.00-0.03); Imm Gran Pct Auto 0.3 % (0.0-0.4); Lymphocytes Absolute Auto 2.4 X10*3/uL (1.2-4.9); Mean Corpuscular HGB Conc 33.7 g/dl (31.0-36.0); Mean Corpuscular Hemoglobin 27.7 pg (27.0-33.0); Mean Corpuscular Volume 82.1 fL (80.0-98.0); NRBC Abs Auto 0.000 X10*3/uL (0.0-0.012); NRBC Pct Auto 0.0 /100WBC (0.0-0.2); Platelet Count 342 X10*3/uL (160-400); Red Blood Count 4.48 X10*6/uL (4.60-5.80); White Blood Count 6.6 X10*3/uL (4.8-10.8)
[2024-09-30 17:44] LABS: Alanine Aminotransferase 52 U/L (0-40); Albumin Level 4.5 g/dL (3.5-5.0); Alkaline Phosphatase 70 U/L (39-117); Anion Gap 14 (12-20); Aspartate Amino Transferase 37 U/L (5-37); Blood Urea Nitrogen 14 mg/dL (9-16); Calcium 9.1 mg/dL (8.4-10.2); Carbon Dioxide 27 mmol/L (22-29); Chloride 106 mmol/L (96-108); Creatinine Clr Calc Pharmacy 113.2; Estimated Glomerular Filt Rate > 60; Potassium 3.9 mmol/L (3.3-5.1); Sodium 143 mmol/L (135-145); Total Protein 7.2 g/dL (6.5-8.0)
[2024-09-30] MEDS: Naloxone HCl Nasal TAKE HOME 4 MG SPRAY 8 MG NOSTRILALT (17:58)
[2024-09-30 18:00] VITALS: BP 136/91; PULSE 101; RESP 18; TEMP 36.3; O2SAT 95
== END 2024-09-30 18:47 | disposition home or self-care (01) ==
PROVIDERS: Registered Nurse Emergency; Emergency Provider Emergency Medicine Emergency Medical Services
DX: F11.90 Opioid use, unspecified, uncomplicated (principal); R40.4 Transient alteration of awareness; M79.672 Pain in left foot; M79.671 Pain in right foot; F25.9 Schizoaffective disorder, unspecified; Z91.148 Patient's other noncompliance with medication regimen for other reason
CPT/HCPCS: 36415; 80053; 80307; 85025; 99285; S9485